=== PATIENT | male | born 1960 | race Caucasian/White ===

== ENCOUNTER → 2016-11-05 | Outpatient (CLI) | payer MEDICARE, MEDICAID ==
--- NOTE | 2016-11-05 13:06 | CR ---
EXAMINATION: Single contrast barium enema HISTORY: Unspecified intestinal obstruction COMPARISON: CT dated 12/19/2009 TECHNIQUE: A standard barium enema was performed. FINDINGS: The rectum is prominent in size and appears featureless. The remaining colon appears larry lly distensible however the cecum was unable to be optimally distended. No filling defect or strictu re identified. IMPRESSION: 1. Grossly unremarkable single contrast barium enema.
== END ==
LOC: MW.DI 08:37
PROVIDERS: ATTEND Student in an Organized Health Care Education/Training Program
DX: K56.60 Unspecified intestinal obstruction (principal)
CPT/HCPCS: 74270; 74270-26

== ENCOUNTER 2018-10-08 10:02 | Emergency (ER) | payer MEDICARE, MEDICAID ==
--- NOTE | 2018-10-08 10:29 | EDM.PDOC ---
ED HPI GENERAL MEDICAL PROBLEM - General Chief Complaint: Lower Extremity Injury/Pain Stated Complaint: LT LEG WARM AND RED Time Seen by Provider: 10/08/18 10:24 Source of Information: Reports: Patient, Provider History Limitations: Reports: No Limitations - History of Present Illness INITIAL COMMENTS - FREE TEXT/NARRATIVE: HISTORY AND PHYSICAL: History of present illness: Patient is a 58-year-old male here with complaint of left lower extremity redness and swelling. Patient is here with his caregiver from the [facility]. Patient has history of chronic lower extremity edema, diabetes, and hypertension. He was seen 6 weeks ago for similar complaint, transferred to due to lack of beds here and treated for cellulitis as well as a DVT. He is currently on Xarelto. He and caregiver state he has had increased pain, redness, and swelling x 4 days. He denies fevers, chills, nausea, vomiting , chest pain, shortness of breath. Patient does have an appointment with his PCP on 10/15/18. Review of systems: As per history of present illness and below otherwise all systems reviewed and negative. Past medical history: As per history of present illness and as reviewed below otherwise noncontributory. Surgical history: As per history of present illness and as reviewed below otherwise noncontributory. Social history: No reported history of drug or alcohol abuse. Family history: As per history of present illness and as reviewed below otherwise noncontributory. Physical exam: General: Patient sitting comfortably in no acute distress and nontoxic appearing HEENT: Atraumatic, normocephalic, pupils reactive, negative for conjunctival pallor or scleral icterus, mucous membranes moist, throat clear, neck supple, nontender, trachea midline. No meningeal signs. Lungs: Clear to auscultation, breath sounds equal bilaterally, chest nontender. Heart: S1S2, regular, negative for clicks, rubs, or overt murmur. Abdomen: Soft, nondistended, nontender. Negative for masses or hepatosplenomegaly. Negative for costovertebral tenderness. Pelvis: Stable nontender. Genitourinary: Deferred. Rectal: Hemoccult negative Extremities: Significant lower extremity pitting edema bilaterally. Dry skin noted but no cracks or open wounds. There is diffuse erythema of the left lower extremity that is warm and tender to touch. Atraumatic, negative for cords or calf pain. Neurovascular unremarkable. Neuro: Awake, alert, oriented. Cranial nerves II through XII unremarkable. Cerebellum unremarkable. Motor and sensory unremarkable throughout. Exam nonfocal. Notes: Patient's H&H is lower than previous visit, he denies any abdominal symptoms but was recently started on Xarelto so a hemoccult was checked which is negative. Diagnostics: CBC, CMP, x-ray tib/fib, blood culture x 2 Therapeutics: 1g Rocephin IM Prescriptions: Clindamycin Impression: Cellulitis Plan: 1. Elevate leg and take antibiotic as instructed 2. Follow up with primary care provider 3. Return to ED as needed as discussed Definitive disposition and diagnosis as appropriate pending reevaluation and review of above. Left Lower Leg Pain Score (Numeric/FACES): 10 - Related Data Allergies Allergy/AdvReac Type Severity Reaction Status Date / Time bee pollen [Bee Pollen] Allergy Swelling Verified 10/08/18 10:22 iodine Allergy Swelling Verified 10/08/18 10:22 Sulfa (Sulfonamide Allergy Swelling Verified 10/08/18 10:22 Antibiotics) Home Meds: Home Meds Allopurinol [Zyloprim] 100 mg PO DAILY 10/08/18 [History] Aspirin [Adult Aspirin] 81 mg PO DAILY 10/08/18 [History] Carboxymethylcellulose Sodium [Refresh Plus 0.5%] 1 drop EYEBOTH DAILY 10/08/18 [History] Clindamycin HCl 300 mg PO QID 7 Days #28 capsule 10/08/18 [Rx] EPINEPHrine [Epipen] 0.3 mg IM ASDIRECTED 10/08/18 [History] Furosemide 40 mg PO DAILY 10/08/18 [History] Liraglutide [Victoza] 1.8 mg SQ DAILY 10/08/18 [History] Lisinopril 20 mg PO DAILY 10/08/18 [History] Metoprolol Succinate 100 mg PO DAILY 10/08/18 [History] Olopatadine [Patanol 0.1% Ophth Soln] 0.2 dose EYEBOTH DAILY 10/08/18 [History] Potassium Chloride 20 meq PO TID 10/08/18 [History] Rivaroxaban [Xarelto] 20 mg PO DAILY 10/08/18 [History] Sertraline [Zoloft] 100 mg PO DAILY 10/08/18 [History] atorvaSTATin Calcium [Lipitor] 40 mg PO DAILY 10/08/18 [History] carBAMazepine [Tegretol] 400 mg PO BID 10/08/18 [History] metFORMIN [Glucophage XR] 1,500 mg PO DAILY 10/08/18 [History] risperiDONE 5 mg PO DAILY 10/08/18 [History] traZODone HCl [Trazodone HCl] 150 mg PO DAILY 10/08/18 [History] Past Medical History HEENT History: Reports: Other (See Below) Other HEENT History: myopia Cardiovascular History: Reports: Hypertension Gastrointestinal History: Reports: Chronic Constipation, Other (See Below) Other Gastrointestinal History: possible peptic ulcer Genitourinary History: Reports: UTI, Recurrent Musculoskeletal History: Reports: Gout Neurological History: Reports: Seizure Psychiatric History: Reports: Other (See Below) Other Psychiatric History: disruptive behavior disorder NOS Endocrine/Metabolic History: Reports: Diabetes, Type II, Obesity/BMI 30+ Dermatologic History: Reports: Other (See Below) Other Dermatologic History: tinea pedis, hyperhydrosis, recurring fungus to feet and nails - Infectious Disease History Infectious Disease History: Reports: None - Past Surgical History Male Surgical History: Reports: Other (See Below) Social & Family History - Family History Family Medical History: Noncontributory Review of Systems - Review of Systems Review Of Systems: ROS reveals no pertinent complaints other than HPI. ED EXAM, GENERAL - Physical Exam Exam: See Below (see dictation) Course - Vital Signs Last Recorded V/S: Last Vital Signs Temp 97.4 F 10/08/18 10:19 Pulse 80 10/08/18 10:19 Resp 18 10/08/18 10:19 BP 164/88 H 10/08/18 10:19 Pulse Ox 96 10/08/18 10:19 - Orders/Labs/Meds Orders: Active Orders 24 hr Category Date Time Status CULTURE BLOOD [BC] Stat Lab 10/08/18 10:59 Received CULTURE BLOOD [BC] Stat Lab 10/08/18 11:10 Received Blood Culture x2 Reflex Set [OM.PC] Stat Oth 10/08/18 10:49 Ordered Labs: Laboratory Tests 10/08/18 10/08/18 Range/Units 10:45 10:45 WBC 4.53 (4.0-11.0) K/uL RBC 3.54 L (4.50-5.90) M/uL Hgb 10.5 L (13.0-17.0) g/dL Hct 32.1 L (38.0-50.0) % MCV 90.7 (80.0-98.0) fL MCH 29.7 (27.0-32.0) pg MCHC 32.7 (31.0-37.0) g/dL RDW Std Deviation 52.4 (28.0-62.0) fl RDW Coeff of Giovanni 16 H (11.0-15.0) % Plt Count 160 (150-400) K/uL MPV 9.40 (7.40-12.00) fL Neut % (Auto) 65.6 (48.0-80.0) % Lymph % (Auto) 23.2 (16.0-40.0) % Hutchinson % (Auto) 9.9 (0.0-15.0) % Eos % (Auto) 1.1 (0.0-7.0) % Baso % (Auto) 0.2 (0.0-1.5) % Neut # (Auto) 3.0 (1.4-5.7) K/uL Lymph # (Auto) 1.1 (0.6-2.4) K/uL Hutchinson # (Auto) 0.5 (0.0-0.8) K/uL Eos # (Auto) 0.1 (0.0-0.7) K/uL Baso # (Auto) 0.0 (0.0-0.1) K/uL Nucleated RBC % 0.0 /100WBC Nucleated RBCs # 0 K/uL Sodium 138 (136-148) mmol/L Potassium 4.1 (3.5-5.1) mmol/L Chloride 101 (98-107) mmol/L Carbon Dioxide 28.4 (21.0-32.0) mmol/L BUN 16 (7.0-18.0) mg/dL Creatinine 0.9 (0.8-1.3) mg/dL Est Cr Clr Drug Dosing 91.65 mL/min Estimated GFR (MDRD) > 60.0 ml/min Glucose 111 H (74-106) mg/dL Calcium 9.1 (8.5-10.1) mg/dL Total Bilirubin 0.2 (0.2-1.0) mg/dL AST 21 (15-37) IU/L ALT 26 (14-63) IU/L Alkaline Phosphatase 95 (46-116) U/L Total Protein 7.9 (6.4-8.2) g/dL Albumin 3.1 L (3.4-5.0) g/dL Globulin 4.8 H (2.6-4.0) g/dL Albumin/Globulin Ratio 0.7 L (0.9-1.6) Meds: Medications Discontinued Medications Generic Name Dose Route Start Last Admin Trade Name Cherie PRN Reason Stop Dose Admin Ceftriaxone Sodium 1 gm 10/08/18 11:22 10/08/18 11:45 Rocephin IM 10/08/18 11:23 1 gm ONETIME ONE Administration Lidocaine HCl 2.1 ml 10/08/18 11:28 10/08/18 11:45 Xylocaine 1% INJECT 10/08/18 11:29 Not Given ONETIME ONE Lidocaine HCl 5 ml 10/08/18 11:30 10/08/18 11:45 Xylocaine-Mpf 1% INJECT 10/08/18 11:31 5 ml ONETIME ONE Administration Departure - Departure Time of Disposition: 11:55 Disposition: Home, Self-Care 01 Condition: Good Clinical Impression: Cellulitis - Discharge Information Prescriptions: Clindamycin HCl 300 mg PO QID 7 Days #28 capsule Referrals: Mati Riggs MD [Primary Care Provider] - Forms: ED Department Discharge Additional Instructions: The following information is given to patients seen in the emergency department who are being discharged to home. This information is to outline your options for follow-up care. We provide all patients seen in our emergency department with a follow-up referral. The need for follow-up, as well as the timing and circumstances, are variable depending upon the specifics of your emergency department visit. If you don't have a primary care physician on staff, we will provide you with a referral. We always advise you to contact your personal physician following an emergency department visit to inform them of the circumstance of the visit and for follow-up with them and/or the need for any referrals to a consulting specialist. The emergency department will also refer you to a specialist when appropriate. This referral assures that you have the opportunity for follow-up care with a specialist. All of these measure are taken in an effort to provide you with optimal care, which includes your follow-up. Under all circumstances we always encourage you to contact your private physician who remains a resource for coordinating your care. When calling for follow-up care, please make the office aware that this follow-up is from your recent emergency room visit. If for any reason you are refused follow-up, please contact the [facility] Emergency Department at and asked to speak to the emergency department charge nurse. [address] [address] 1. Elevate leg and take antibiotic as instructed 2. Follow up with primary care provider 3. Return to ED as needed as discussed - My Orders Last 24 Hours: My Active Orders 10/08/18 10:49 Blood Culture x2 Reflex Set [OM.PC] Stat 10/08/18 10:59 CULTURE BLOOD [BC] Stat 10/08/18 11:10 CULTURE BLOOD [BC] Stat - Assessment/Plan Last 24 Hours: My Active Orders 10/08/18 10:49 Blood Culture x2 Reflex Set [OM.PC] Stat 10/08/18 10:59 CULTURE BLOOD [BC] Stat 10/08/18 11:10 CULTURE BLOOD [BC] Stat
--- NOTE | 2018-10-08 11:11 | CR ---
EXAMINATION: Left tibia and fibula HISTORY: Pain COMPARISON: 08/22/2018 TECHNIQUE: 2 views FINDINGS/IMPRESSION: There is no acute osseous abnormality, dislocation, or fracture. Moderate osteoarthritic changes noted within the left knee and mild degenerative changes noted within the hindfoot. Diffuse generalized soft tissue swelling noted within the visualized subcutaneous tissues with multiple varices.
[2018-10-08] MEDS ORDERED: cefTRIAXone 1 GM Vial IM ONE (11:22)
[2018-10-08] MEDS ORDERED: Lidocaine 1% 20 ML MDV INJECT ONE (11:28)
[2018-10-08 11:40] LABS: CHLORIDE,CL 101 mmol/L (98-107); SODIUM,NA 138 mmol/L (136-148)
== END 2018-10-08 13:04 | disposition home or self-care (01) ==
LOC: MW.ED 10:02
DX: L03.116 Cellulitis of left lower limb (principal); I10 Essential (primary) hypertension; E11.9 Type 2 diabetes mellitus without complications; Z91.030 Bee allergy status; Z91.09 Other allergy status, other than to drugs and biological substances; Z88.2 Allergy status to sulfonamides; Z79.82 Long term (current) use of aspirin; Z79.84 Long term (current) use of oral hypoglycemic drugs; Z79.899 Other long term (current) drug therapy
CPT/HCPCS: 36415; 73590; 80053; 85025; 87040; 96372; 99283; J0696; J2001

== ENCOUNTER 2018-10-12 20:40 | Emergency (ER) | payer MEDICARE, MEDICAID ==
[2018-10-12] MEDS ORDERED: Acetaminophen/HYDROcodone 325-7.5 MG Tab PO STA (21:09)
--- NOTE | 2018-10-12 21:30 | EDM.PDOC ---
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 He has had recent medical history including a left lower extremity DVT currently on several to his last dose was 7 PM tonight He has also been discharged from [facility] for an abscess involving his left calf area and was seen recently with full lab she is on file and placed on clindamycin which he is currently on Taken as directed 4 times daily He also has recent imaging of the tib-fib which includes ankle views and knee views there are chronic degeneration changes but nothing acute visualized on the x-ray He is not taking any pain medication, he has pain with ambulation but not while at rest Lower extremity he has chronic venous stasis changes however no warmth color is pink on posterior calf there is no appreciated fluctuance no drainage for culture Entire limb is neurovascularly intact he was able to ambulate into the emergency room without difficulty No fever nausea vomiting chills sweats no chest pain shortness breath headache dizziness palpitation no bowel or urine symptoms Review of systems: As per history of present illness and below otherwise all systems reviewed and negative. Past medical history: As per history of present illness and as reviewed below otherwise noncontributory. Surgical history: As per history of present illness and as reviewed below otherwise noncontributory. Social history: No reported history of drug or alcohol abuse. Family history: As per history of present illness and as reviewed below otherwise noncontributory. Physical exam: HEENT: Atraumatic, normocephalic, pupils reactive, negative for conjunctival pallor or scleral icterus, mucous membranes moist, throat clear, neck supple, nontender, trachea midline. Lungs: Clear to auscultation, breath sounds equal bilaterally, chest nontender. Heart: S1S2, regular, negative for clicks, rubs, or JVD. Abdomen: Soft, nondistended, nontender. Negative for masses or hepatosplenomegaly. Negative for costovertebral tenderness. Pelvis: Stable nontender. Genitourinary: Deferred. Rectal: Deferred. Extremities: Atraumatic, negative for cords or calf pain. Neurovascular unremarkable. Left lower extremity as per history of present illness Neuro: Awake, alert, oriented. Cranial nerves II through XII unremarkable. Cerebellum unremarkable. Motor and sensory unremarkable throughout. Exam nonfocal. Diagnostics: [Tib-fib plain film on file which includes ankle and knee views Recent ultrasound with left lower extremity thrombus on 0 though Recent lab on file including blood cultures ] Therapeutics: [] Plains 5 per 325 one to 2 tabs by mouth every 6 when necessary #30 no refill Continue current medication as directed Follow-up with primary care in one week sooner as needed Impression: [ left lower extremity cellulitis improved/resolved Abscess resolved History of DVT left lower extremity Chronic degenerative changes of knee and ankle on the x-ray Painful left lower extremity secondary to above ] Definitive disposition and diagnosis as appropriate pending reevaluation and review of above. left lower leg Pain Score (Numeric/FACES): 10 - Related Data Allergies Allergy/AdvReac Type Severity Reaction Status Date / Time bee pollen [Bee Pollen] Allergy Swelling Verified 10/12/18 20:55 iodine Allergy Swelling Verified 10/12/18 20:55 Sulfa (Sulfonamide Allergy Swelling Verified 10/12/18 20:55 Antibiotics) Home Meds: Home Meds Allopurinol [Zyloprim] 100 mg PO DAILY 10/08/18 [History] Aspirin [Adult Aspirin] 81 mg PO DAILY 10/08/18 [History] Carboxymethylcellulose Sodium [Refresh Plus 0.5%] 1 drop EYEBOTH DAILY 10/08/18 [History] Clindamycin HCl 300 mg PO QID 7 Days #28 capsule 10/08/18 [Rx] EPINEPHrine [Epipen] 0.3 mg IM ASDIRECTED 10/08/18 [History] Furosemide 40 mg PO DAILY 10/08/18 [History] Liraglutide [Victoza] 1.8 mg SQ DAILY 10/08/18 [History] Lisinopril 20 mg PO DAILY 10/08/18 [History] Metoprolol Succinate 100 mg PO DAILY 10/08/18 [History] Olopatadine [Patanol 0.1% Ophth Soln] 0.2 dose EYEBOTH DAILY 10/08/18 [History] Potassium Chloride 20 meq PO TID 10/08/18 [History] Rivaroxaban [Xarelto] 20 mg PO DAILY 10/08/18 [History] Sertraline [Zoloft] 100 mg PO DAILY 10/08/18 [History] atorvaSTATin Calcium [Lipitor] 40 mg PO DAILY 10/08/18 [History] carBAMazepine [Tegretol] 400 mg PO BID 10/08/18 [History] metFORMIN [Glucophage XR] 1,500 mg PO DAILY 10/08/18 [History] risperiDONE 5 mg PO DAILY 10/08/18 [History] traZODone HCl [Trazodone HCl] 150 mg PO DAILY 10/08/18 [History] Clindamycin HCl 300 mg PO Q6HR 10/12/18 [History] Past Medical History HEENT History: Reports: Other (See Below) Other HEENT History: myopia Cardiovascular History: Reports: Hypertension Respiratory History: Reports: None Gastrointestinal History: Reports: Chronic Constipation, Other (See Below) Other Gastrointestinal History: possible peptic ulcer Genitourinary History: Reports: UTI, Recurrent Musculoskeletal History: Reports: Gout Neurological History: Reports: Seizure Psychiatric History: Reports: Other (See Below) Other Psychiatric History: disruptive behavior disorder NOS Endocrine/Metabolic History: Reports: Diabetes, Type II, Obesity/BMI 30+ Hematologic History: Reports: None Immunologic History: Reports: None Oncologic (Cancer) History: Reports: None Dermatologic History: Reports: Other (See Below) Other Dermatologic History: tinea pedis, hyperhydrosis, recurring fungus to feet and nails - Infectious Disease History Infectious Disease History: Reports: Measles - Past Surgical History Male Surgical History: Reports: Other (See Below) Social & Family History - Family History Family Medical History: Noncontributory - Tobacco Use Smoking Status *Q: Never Smoker - Caffeine Use Caffeine Use: Reports: Soda - Recreational Drug Use Recreational Drug Use: No Review of Systems - Review of Systems Review Of Systems: See Below ED EXAM, GENERAL - Physical Exam Exam: See Below Course - Vital Signs Last Recorded V/S: Last Vital Signs Temp 98.5 F 10/12/18 20:56 Pulse 77 10/12/18 20:56 Resp 20 10/12/18 20:56 BP 157/90 H 10/12/18 20:56 Pulse Ox 96 10/12/18 20:56 - Orders/Labs/Meds Meds: Medications Discontinued Medications Generic Name Dose Route Start Last Admin Trade Name Freq PRN Reason Stop Dose Admin Hydrocodone Bitart/Acetaminophen 1 tab 10/12/18 21:09 10/12/18 21:17 Plains 325-7.5 Mg PO 10/12/18 21:10 1 tab NOW STA Administration Departure - Departure Time of Disposition: 21:30 Disposition: Home, Self-Care 01 Condition: Good Clinical Impression: Lower extremity pain, Cellulitis, History of DVT (deep vein thrombosis), Degenerative joint disease involving multiple joints - Discharge Information Referrals: Mati Riggs MD [Primary Care Provider] - Forms: ED Department Discharge Additional Instructions: Continue medications as prescribed Pain medication as prescribed Follow-up with primary care in one week sooner as needed [address] [address] The following information is given to patients seen in the emergency department who are being discharged to home. This information is to outline your options for follow-up care. We provide all patients seen in our emergency department with a follow-up referral. The need for follow-up, as well as the timing and circumstances, are variable depending upon the specifics of your emergency department visit. If you don't have a primary care physician on staff, we will provide you with a referral. We always advise you to contact your personal physician following an emergency department visit to inform them of the circumstance of the visit and for follow-up with them and/or the need for any referrals to a consulting specialist. The emergency department will also refer you to a specialist when appropriate. This referral assures that you have the opportunity for follow-up care with a specialist. All of these measure are taken in an effort to provide you with optimal care, which includes your follow-up. Under all circumstances we always encourage you to contact your private physician who remains a resource for coordinating your care. When calling for follow-up care, please make the office aware that this follow-up is from your recent emergency room visit. If for any reason you are refused follow-up, please contact the [facility] emergency department at and asked to speak to the emergency department charge nurse.
== END 2018-10-12 21:53 | disposition home or self-care (01) ==
LOC: MW.ED 20:40
DX: L03.116 Cellulitis of left lower limb (principal); M15.9 Polyosteoarthritis, unspecified; I10 Essential (primary) hypertension; E11.9 Type 2 diabetes mellitus without complications; E66.9 Obesity, unspecified; Z86.718 Personal history of other venous thrombosis and embolism; Z88.2 Allergy status to sulfonamides; Z91.030 Bee allergy status; Z79.82 Long term (current) use of aspirin; Z79.899 Other long term (current) drug therapy; Z79.84 Long term (current) use of oral hypoglycemic drugs
CPT/HCPCS: 99283; A9270

== ENCOUNTER 2019-05-31 14:47 | Emergency (ER) | payer MEDICARE, MEDICAID ==
--- NOTE | 2019-05-31 15:28 | EDM.PDOC ---
ED HPI GENERAL MEDICAL PROBLEM - General Chief Complaint: Back Pain or Injury Stated Complaint: RIGHT LOWER PAIN Time Seen by Provider: 05/31/19 15:23 Source of Information: Reports: Patient History Limitations: Reports: No Limitations - History of Present Illness INITIAL COMMENTS - FREE TEXT/NARRATIVE: HISTORY AND PHYSICAL: History of present illness: Patient is a 58-year-old male presenting to the for complaints of low back pain. The patient's criminal justice social worker did accompany him to the emergency room. Patient denies recent trauma. Patient states that he does work at [employer] and I was informed by the criminal justice social worker that he has been lifting heavy objects at work and he may have injured his back at work. He cannot point to a place and time he sustained an injury. Patient states it feels like he is having most of the pain in his muscles. When asked to rate his pain on a scale of 0-10, he gave me a frowning face, which would rate at an 8/10 on the Ramirez-Huerta pain rating scale. To inform me that he did take an Hydrocodone (from an old prescription) at approximately 2 PM today, however he is still having back pain. Patient states he's been having some epigastric pain for approximately the last 2 weeks. Patient denies any fever, chills, headache, change in vision, syncope or near syncope. Denies any chest pain, shortness of breath or cough. Denies any nausea, vomiting, diarrhea, constipation or dysuria. Has not noted any blood in urine or stool. Patient has been eating and drinking appropriately. Review of systems: As per history of present illness and below otherwise all systems reviewed and negative. Past medical history: As per history of present illness and as reviewed below otherwise noncontributory. Surgical history: As per history of present illness and as reviewed below otherwise noncontributory. Social history: See social history for further information Family history: As per history of present illness and as reviewed below otherwise noncontributory. Physical exam: General: Well developed and well nourished 58-year-old male. Alert and oriented. Nontoxic appearing and in no acute distress. HEENT: Atraumatic, normocephalic, pupils equal and reactive bilaterally, negative for conjunctival pallor or scleral icterus, mucous membranes moist, trachea midline. No drooling or trismus noted. No meningeal signs. No hot potato voice noted. Lungs: Clear to auscultation, breath sounds equal bilaterally, chest nontender. Heart: S1S2, regular rate and rhythm without overt murmur Abdomen: Soft, nondistended, nontender. Negative for masses or hepatosplenomegaly. Negative for costovertebral tenderness. Pelvis: Stable nontender. C-spine/Back: No pinpoint vertebral tenderness upon palpation. Paraspinous muscular tenderness bilaterally of the lumbosacral spine. No crepitus, step- offs or obvious deformities. Patient is ambulatory into the emergency room without difficulty or deficit. Able to rock back on heels and walk on toes. Denies any urinary or fecal incontinence. Denies any numbness, tingling or saddle paresthesia. Skin: Intact, warm, dry. No lesions or rashes noted. Extremities: Atraumatic, moves all extremities per self without difficulty or deficits, negative for cords or calf pain. Negative foot drop. Neurovascular unremarkable. Neuro: Awake, alert, oriented. Cranial nerves II through XII unremarkable. Cerebellum unremarkable. Motor and sensory unremarkable throughout. Exam nonfocal. Notes: Urinalysis was done as he did has some vague low back pain and some epigastric pain. Urine is negative. X-ray shows mild diffuse degenerative changes. We'll give him some diclofenac and Flexeril Supportive care measures were reviewed and discussed. Voices understanding and is agreeable to plan of care. Denies any further questions or concerns at this time. Diagnostics: UA with reflux, lumbosacral sacral spine x-ray Therapeutics: None Prescription: Flexeril Diclofenac Impression: Lumbago Plan: 1. When resting please lay on a flat firm surface. Limit your immobility to prevent muscle stiffness. Get up to ambulate/move around/gentle stretching multiple times throughout the day. May alternate heat and ice to the painful areas 2. Tylenol as needed for back pain. Otherwise take the prescribed Flexeril and diclofenac as directed. Diclofenac is an anti-inflammatory so do not take any additional NSAIDs with this medication, such as ibuprofen or Aleve. Flexeril as a muscle relaxant, this medication may cause drowsiness a do not take it will driving her needing to be functioning outside of the house. 3. Please follow-up with your primary care provider as we discussed. Return to the ED as needed and as discussed. Definitive disposition and diagnosis as appropriate pending reevaluation and review of above. low back Pain Score (Numeric/FACES): 10 - Related Data Allergies Allergy/AdvReac Type Severity Reaction Status Date / Time bee pollen [Bee Pollen] Allergy Swelling Verified 05/31/19 15:28 iodine Allergy Swelling Verified 05/31/19 15:28 Sulfa (Sulfonamide Allergy Swelling Verified 05/31/19 15:28 Antibiotics) Home Meds: Home Meds Allopurinol [Zyloprim] 100 mg PO DAILY 10/08/18 [History] Aspirin [Adult Aspirin] 81 mg PO DAILY 10/08/18 [History] Carboxymethylcellulose Sodium [Refresh Plus 0.5%] 1 drop EYEBOTH DAILY 10/08/18 [History] EPINEPHrine [Epipen] 0.3 mg IM ASDIRECTED 10/08/18 [History] Furosemide 40 mg PO DAILY 10/08/18 [History] Liraglutide [Victoza] 1.8 mg SQ DAILY 10/08/18 [History] Lisinopril 20 mg PO BID 10/08/18 [History] Metoprolol Succinate 100 mg PO DAILY 10/08/18 [History] Olopatadine [Patanol 0.1% Ophth Soln] 0.2 dose EYEBOTH DAILY 10/08/18 [History] Potassium Chloride 20 meq PO TID 10/08/18 [History] Rivaroxaban [Xarelto] 20 mg PO DAILY 10/08/18 [History] Sertraline [Zoloft] 100 mg PO DAILY 10/08/18 [History] atorvaSTATin Calcium [Lipitor] 40 mg PO BEDTIME 10/08/18 [History] carBAMazepine [Tegretol] 400 mg PO BID 10/08/18 [History] metFORMIN [Glucophage XR] 500 mg PO TID 10/08/18 [History] risperiDONE 5 mg PO DAILY 10/08/18 [History] traZODone HCl [Trazodone HCl] 150 mg PO BEDTIME 10/08/18 [History] Past Medical History HEENT History: Reports: Other (See Below) Other HEENT History: myopia Cardiovascular History: Reports: Blood Clots/VTE/DVT, Hypertension Respiratory History: Reports: None Gastrointestinal History: Reports: Chronic Constipation, Other (See Below) Other Gastrointestinal History: possible peptic ulcer Genitourinary History: Reports: UTI, Recurrent Musculoskeletal History: Reports: Gout Neurological History: Reports: Seizure Psychiatric History: Reports: Other (See Below) Other Psychiatric History: disruptive behavior disorder NOS Endocrine/Metabolic History: Reports: Diabetes, Type II, Obesity/BMI 30+ Hematologic History: Reports: None Immunologic History: Reports: None Oncologic (Cancer) History: Reports: None Dermatologic History: Reports: Cellulitis, Other (See Below) Other Dermatologic History: tinea pedis, hyperhydrosis, recurring fungus to feet and nails - Infectious Disease History Infectious Disease History: Reports: Measles - Past Surgical History Male Surgical History: Reports: Other (See Below) Social & Family History - Family History Family Medical History: Noncontributory - Caffeine Use Caffeine Use: Reports: Soda ED ROS GENERAL - Review of Systems Review Of Systems: ROS reveals no pertinent complaints other than HPI. ED EXAM,LOWER BACK PAIN/INJURY - Physical Exam Exam: See Below (See dictation) Course - Vital Signs Last Recorded V/S: Last Vital Signs Temp 98 F 05/31/19 15:20 Pulse 89 05/31/19 15:20 Resp 18 05/31/19 15:20 BP 166/100 H 05/31/19 15:20 Pulse Ox 95 05/31/19 15:20 - Orders/Labs/Meds Labs: Laboratory Tests 05/31/19 Range/Units 16:10 Urine Color YELLOW Urine Appearance CLEAR Urine pH 5.5 (5.0-8.0) Ur Specific Sparks 1.015 (1.001-1.035) Urine Protein NEGATIVE (NEGATIVE) mg/dL Urine Glucose (UA) NEGATIVE (NEGATIVE) mg/dL Urine Ketones NEGATIVE (NEGATIVE) mg/dL Urine Occult Blood NEGATIVE (NEGATIVE) Urine Nitrite NEGATIVE (NEGATIVE) Urine Bilirubin NEGATIVE (NEGATIVE) Urine Urobilinogen 0.2 (<2.0) EU/dL Ur Leukocyte Esterase NEGATIVE (NEGATIVE) Departure - Departure Time of Disposition: 16:44 Disposition: Home, Self-Care 01 Clinical Impression: Lumbago Qualifiers: Chronicity: unspecified Back pain laterality: bilateral Sciatica presence: without sciatica Qualified Code(s): M54.5 - Low back pain - Discharge Information Referrals: Mati Riggs MD [Primary Care Provider] - Forms: ED Department Discharge Additional Instructions: The following information is given to patients seen in the emergency department who are being discharged to home. This information is to outline your options for follow-up care. We provide all patients seen in our emergency department with a follow-up referral. The need for follow-up, as well as the timing and circumstances, are variable depending upon the specifics of your emergency department visit. If you don't have a primary care physician on staff, we will provide you with a referral. We always advise you to contact your personal physician following an emergency department visit to inform them of the circumstance of the visit and for follow-up with them and/or the need for any referrals to a consulting specialist. The emergency department will also refer you to a specialist when appropriate. This referral assures that you have the opportunity for follow-up care with a specialist. All of these measure are taken in an effort to provide you with optimal care, which includes your follow-up. Under all circumstances we always encourage you to contact your private physician who remains a resource for coordinating your care. When calling for follow-up care, please make the office aware that this follow-up is from your recent emergency room visit. If for any reason you are refused follow-up, please contact the [facility] Emergency Department at and asked to speak to the emergency department charge nurse. [facility] [address] [place] [address] [place] [address] 1. When resting please lay on a flat firm surface. Limit your immobility to prevent muscle stiffness. Get up to ambulate/move around/gentle stretching multiple times throughout the day. May alternate heat and ice to the painful areas 2. Tylenol as needed for back pain. Otherwise take the prescribed Flexeril and diclofenac as directed. Diclofenac is an anti-inflammatory so do not take any additional NSAIDs with this medication, such as ibuprofen or Aleve. Flexeril as a muscle relaxant, this medication may cause drowsiness a do not take it will driving her needing to be functioning outside of the house. 3. Please follow-up with your primary care provider as we discussed. Return to the ED as needed and as discussed.
--- NOTE | 2019-05-31 16:25 | CR ---
Lumbar spine: AP, lateral and coned-down lateral view centered to the lumbosacral junction were obtained. Comparison: No prior lumbar spine imaging. Scattered disc space narrowing throughout the lower thoracic and lumbar spine is noted. Scattered endplate osteophytes are seen. Minimal retrolisthesis is noted at L2-L3 and minimally at L3-L4. Slight scoliosis is noted. Pedicles are intact. Sacroiliac joints are grossly unremarkable. Mild anterior spondylolisthesis of L5-S1 compatible with degenerative apophyseal change. Impression: Mild diffuse degenerative change as described above. Diagnostic code #2 MTDD
== END 2019-05-31 17:02 | disposition home or self-care (01) ==
LOC: MW.ED 14:47
DX: M54.5 Low back pain (principal); I10 Essential (primary) hypertension; E11.9 Type 2 diabetes mellitus without complications; E66.9 Obesity, unspecified; Z79.84 Long term (current) use of oral hypoglycemic drugs; Z79.899 Other long term (current) drug therapy; Z86.718 Personal history of other venous thrombosis and embolism; Z88.2 Allergy status to sulfonamides; Z88.8 Allergy status to other drugs, medicaments and biological substances; Z91.048 Other nonmedicinal substance allergy status
CPT/HCPCS: 72100; 72100-26; 81003; 99283-25

== ENCOUNTER 2019-06-09 16:57 | Emergency (ER) | payer MEDICARE, MEDICAID ==
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
[2019-06-09] MEDS ORDERED: Acetaminophen 500 MG Tab PO ONE (18:37)
== END 2019-06-09 19:00 | disposition home or self-care (01) ==
LOC: MW.ED 16:57
DX: S09.90XA Unspecified injury of head, initial encounter (principal); S16.1XXA Strain of muscle, fascia and tendon at neck level, initial encounter; S29.012A Strain of muscle and tendon of back wall of thorax, initial encounter; S39.012A Strain of muscle, fascia and tendon of lower back, initial encounter; I10 Essential (primary) hypertension; E11.9 Type 2 diabetes mellitus without complications; Z91.030 Bee allergy status; Z91.048 Other nonmedicinal substance allergy status; Z88.2 Allergy status to sulfonamides; Z79.82 Long term (current) use of aspirin; Z79.899 Other long term (current) drug therapy; Z79.84 Long term (current) use of oral hypoglycemic drugs; Z86.718 Personal history of other venous thrombosis and embolism; V49.50XA Passenger injured in collision with unspecified motor vehicles in traffic accident, initial encounter
CPT/HCPCS: 70450; 71045; 72070; 72100; 72125; 99284; A9270

== ENCOUNTER 2019-08-08 10:11 | Emergency (ER) | payer MEDICARE, MEDICAID ==
--- NOTE | 2019-08-08 10:20 | EDM.PDOC ---
ED HPI GENERAL MEDICAL PROBLEM - General Chief Complaint: ENT Problem Stated Complaint: SORE THROAT Time Seen by Provider: 08/08/19 10:20 Source of Information: Reports: Patient History Limitations: Reports: No Limitations - History of Present Illness INITIAL COMMENTS - FREE TEXT/NARRATIVE: HISTORY AND PHYSICAL: History of present illness: Patient is a 59-year-old male presents to the ED with complaint of sore throat. He states he has had a cold and sore throat for the past 2 weeks. He reports pain with swallowing but denies difficulty breathing or trismus. He has had a slight cough. Denies fevers, chills, chest pain, shortness of breath, nausea, vomiting, abdominal pain. Patient notes having a mass to the right side of the neck which is tender to touch. Review of systems: As per history of present illness and below otherwise all systems reviewed and negative. Past medical history: As per history of present illness and as reviewed below otherwise noncontributory. Surgical history: As per history of present illness and as reviewed below otherwise noncontributory. Social history: No reported history of drug or alcohol abuse. Family history: As per history of present illness and as reviewed below otherwise noncontributory. Physical exam: General: Patient sitting comfortably in no acute distress and nontoxic appearing HEENT: Tonsils are 1+ and erythematous without exudate. There is a 2x2cm firm mobile mass felt to the right submandibular area, tender to palpation. No overlying erythema or warmth. No purulence noted to the lyla duct. Atraumatic , normocephalic, pupils reactive, negative for conjunctival pallor or scleral icterus, mucous membranes moist, throat clear, neck supple, nontender, trachea midline. No meningeal signs. Lungs: Clear to auscultation, breath sounds equal bilaterally, chest nontender. Heart: S1S2, regular, negative for clicks, rubs, or overt murmur. Abdomen: Soft, nondistended, nontender. Negative for masses or hepatosplenomegaly. Negative for costovertebral tenderness. No rigidity, rebound , guarding. Pelvis: Stable nontender. Genitourinary: Deferred. Rectal: Deferred. Extremities: Atraumatic, negative for cords or calf pain. Neurovascular unremarkable. Neuro: Awake, alert, oriented. Cranial nerves II through XII unremarkable. Cerebellum unremarkable. Motor and sensory unremarkable throughout. Exam nonfocal. Notes: Diagnostics: rapid strep, CT soft tissue neck, CBC, BMP Therapeutics: 1g Rocephin IV Prescriptions: Keflex Impression: Acute sialoadenitis Definitive disposition and diagnosis as appropriate pending reevaluation and review of above. right throat Pain Score (Numeric/FACES): 10 - Related Data Allergies Allergy/AdvReac Type Severity Reaction Status Date / Time bee pollen [Bee Pollen] Allergy Swelling Verified 08/08/19 10:21 iodine Allergy Swelling Verified 08/08/19 10:21 Sulfa (Sulfonamide Allergy Swelling Verified 08/08/19 10:21 Antibiotics) Home Meds: Home Meds Aspirin [Adult Aspirin] 81 mg PO DAILY 10/08/18 [History] Carboxymethylcellulose Sodium [Refresh Plus 0.5%] 1 drop EYEBOTH DAILY 10/08/18 [History] EPINEPHrine [Epipen] 0.3 mg IM ASDIRECTED 10/08/18 [History] Furosemide 40 mg PO DAILY 10/08/18 [History] Liraglutide [Victoza] 1.8 mg SQ DAILY 10/08/18 [History] Lisinopril 20 mg PO BID 10/08/18 [History] Metoprolol Succinate 100 mg PO DAILY 10/08/18 [History] Olopatadine [Patanol 0.1% Ophth Soln] 0.2 dose EYEBOTH DAILY 10/08/18 [History] Potassium Chloride 20 meq PO TID 10/08/18 [History] Rivaroxaban [Xarelto] 20 mg PO DAILY 10/08/18 [History] Sertraline [Zoloft] 100 mg PO DAILY 10/08/18 [History] allopurinoL [Zyloprim] 100 mg PO DAILY 10/08/18 [History] atorvaSTATin Calcium [Lipitor] 40 mg PO BEDTIME 10/08/18 [History] carBAMazepine [Tegretol] 400 mg PO BID 10/08/18 [History] metFORMIN [Glucophage XR] 500 mg PO TID 10/08/18 [History] risperiDONE 5 mg PO DAILY 10/08/18 [History] traZODone HCl [Trazodone HCl] 150 mg PO BEDTIME 10/08/18 [History] Cyclobenzaprine [Flexeril] 10 mg PO TID PRN #21 tab 10/14/19 [Rx] Azithromycin [Zithromax] 250 mg PO ASDIRECTED #1 dosepk 08/08/19 [Rx] Past Medical History HEENT History: Reports: Other (See Below) Other HEENT History: myopia Cardiovascular History: Reports: Blood Clots/VTE/DVT, Hypertension Respiratory History: Reports: None Gastrointestinal History: Reports: Chronic Constipation, Other (See Below) Other Gastrointestinal History: possible peptic ulcer Genitourinary History: Reports: UTI, Recurrent Musculoskeletal History: Reports: Gout Neurological History: Reports: Seizure Psychiatric History: Reports: Other (See Below) Other Psychiatric History: disruptive behavior disorder NOS Endocrine/Metabolic History: Reports: Diabetes, Type II, Obesity/BMI 30+ Hematologic History: Reports: None Immunologic History: Reports: None Oncologic (Cancer) History: Reports: None Dermatologic History: Reports: Cellulitis, Other (See Below) Other Dermatologic History: tinea pedis, hyperhydrosis, recurring fungus to feet and nails - Infectious Disease History Infectious Disease History: Reports: Measles - Past Surgical History Male Surgical History: Reports: Other (See Below) Social & Family History - Family History Family Medical History: Noncontributory - Caffeine Use Caffeine Use: Reports: Soda ED ROS ENT - Review of Systems Review Of Systems: Comprehensive ROS is negative, except as noted in HPI. ED EXAM, ENT - Physical Exam Exam: See Below (see dictation) Course - Vital Signs Last Recorded V/S: Last Vital Signs Temp 97.5 F 08/08/19 10:22 Pulse 82 08/08/19 10:22 Resp 18 08/08/19 10:22 BP 152/90 H 08/08/19 10:22 Pulse Ox 95 08/08/19 10:22 - Orders/Labs/Meds Orders: Active Orders 24 hr Category Date Time Status CULTURE STREP A CONFIRMATION [RM] Stat Lab 08/08/19 10:26 Results STREP SCRN A RAPID W CULT CONF [RM] Stat Lab 08/08/19 10:26 Results Sodium Chloride 0.9% [Saline Flush] Med 08/08/19 12:13 Active 10 ml FLUSH ASDIRECTED PRN Sodium Chloride 0.9% [Saline Flush] Med 08/08/19 12:13 Active 2.5 ml FLUSH ASDIRECTED PRN Saline Lock Insert [OM.PC] Stat Oth 08/08/19 12:13 Ordered Medication Orders Sodium Chloride (Saline Flush) 10 ml FLUSH ASDIRECTED PRN PRN Reason: Keep Vein Open Last Admin: 08/08/19 12:58 Dose: 10 ml Sodium Chloride (Saline Flush) 2.5 ml FLUSH ASDIRECTED PRN PRN Reason: Keep Vein Open Last Admin: 08/08/19 12:58 Dose: 2.5 ml Labs: Laboratory Tests 08/08/19 08/08/19 Range/Units 12: 12: WBC 9.13 (4.0-11.0) K/uL RBC 4.21 L (4.50-5.90) M/uL Hgb 13.1 (13.0-17.0) g/dL Hct 38.8 (38.0-50.0) % MCV 92.2 (80.0-98.0) fL MCH 31.1 (27.0-32.0) pg MCHC 33.8 (31.0-37.0) g/dL RDW Std Deviation 44.3 (28.0-62.0) fl RDW Coeff of Giovanni 13 (11.0-15.0) % Plt Count 203 (150-400) K/uL MPV 10.00 (7.40-12.00) fL Neut % (Auto) 76.0 (48.0-80.0) % Lymph % (Auto) 15.6 L (16.0-40.0) % Gaston % (Auto) 7.9 (0.0-15.0) % Eos % (Auto) 0.3 (0.0-7.0) % Baso % (Auto) 0.2 (0.0-1.5) % Neut # (Auto) 6.9 H (1.4-5.7) K/uL Lymph # (Auto) 1.4 (0.6-2.4) K/uL Gaston # (Auto) 0.7 (0.0-0.8) K/uL Eos # (Auto) 0.0 (0.0-0.7) K/uL Baso # (Auto) 0.0 (0.0-0.1) K/uL Nucleated RBC % 0.0 /100WBC Nucleated RBCs # 0 K/uL Sodium 139 (136-148) mmol/L Potassium 4.1 (3.5-5.1) mmol/L Chloride 101 (98-107) mmol/L Carbon Dioxide 30.2 (21.0-32.0) mmol/L BUN 16 (7.0-18.0) mg/dL Creatinine 0.9 (0.8-1.3) mg/dL Est Cr Clr Drug Dosing 90.56 mL/min Estimated GFR (MDRD) > 60.0 ml/min Glucose 103 (74-106) mg/dL Calcium 9.2 (8.5-10.1) mg/dL Meds: Medications Generic Name Dose Route Start Last Admin Trade Name Freq PRN Reason Stop Dose Admin Sodium Chloride 10 ml 08/08/19 12:13 08/08/19 12:58 Saline Flush FLUSH 10 ml ASDIRECTED PRN Administration Keep Vein Open Sodium Chloride 2.5 ml 08/08/19 12:13 08/08/19 12:58 Saline Flush FLUSH 2.5 ml ASDIRECTED PRN Administration Keep Vein Open Discontinued Medications Generic Name Dose Route Start Last Admin Trade Name Freq PRN Reason Stop Dose Admin Ceftriaxone Sodium/Dextrose 1 50 mls @ 100 mls/hr 08/08/19 12:37 08/08/19 12: 58 gm/ Premix IV 08/08/19 13:06 100 mls/hr ONETIME ONE Administration Departure - Departure Time of Disposition: 10:43 Disposition: Home, Self-Care 01 Condition: Good Clinical Impression: Acute sialoadenitis - Discharge Information Prescriptions: Azithromycin [Zithromax] 250 mg PO ASDIRECTED #1 dosepk Instructions: Acute Bronchitis, Adult, [id number], Pharyngitis, [id number] Referrals: Mati Riggs MD [Primary Care Provider] - Forms: ED Department Discharge Additional Instructions: The following information is given to patients seen in the emergency department who are being discharged to home. This information is to outline your options for follow-up care. We provide all patients seen in our emergency department with a follow-up referral. The need for follow-up, as well as the timing and circumstances, are variable depending upon the specifics of your emergency department visit. If you don't have a primary care physician on staff, we will provide you with a referral. We always advise you to contact your personal physician following an emergency department visit to inform them of the circumstance of the visit and for follow-up with them and/or the need for any referrals to a consulting specialist. The emergency department will also refer you to a specialist when appropriate. This referral assures that you have the opportunity for follow-up care with a specialist. All of these measure are taken in an effort to provide you with optimal care, which includes your follow-up. Under all circumstances we always encourage you to contact your private physician who remains a resource for coordinating your care. When calling for follow-up care, please make the office aware that this follow-up is from your recent emergency room visit. If for any reason you are refused follow-up, please contact the [facility] at and asked to speak to the emergency department charge nurse. [facility] [address] [place] [id number] [place] [address] Take antibiotic as instructed Take tylenol as needed Follow up with primary care provider Return to ED as needed as discussed Sepsis Event Note - Focused Exam Vital Signs: Vital Signs Temp Pulse Resp BP Pulse Ox 08/08/19 10:22 97.5 F 82 18 152/90 H 95 Date Exam was Performed: 08/08/19 Time Exam was Performed: 13:10 - My Orders Last 24 Hours: My Active Orders 08/08/19 10:26 CULTURE STREP A CONFIRMATION [RM] Stat STREP SCRN A RAPID W CULT CONF [RM] Stat 08/08/19 12:13 Sodium Chloride 0.9% [Saline Flush] 10 ml FLUSH ASDIRECTED PRN Sodium Chloride 0.9% [Saline Flush] 2.5 ml FLUSH ASDIRECTED PRN Saline Lock Insert [OM.PC] Stat - Assessment/Plan Last 24 Hours: My Active Orders 08/08/19 10:26 CULTURE STREP A CONFIRMATION [RM] Stat STREP SCRN A RAPID W CULT CONF [RM] Stat 08/08/19 12:13 Sodium Chloride 0.9% [Saline Flush] 10 ml FLUSH ASDIRECTED PRN Sodium Chloride 0.9% [Saline Flush] 2.5 ml FLUSH ASDIRECTED PRN Saline Lock Insert [OM.PC] Stat
--- NOTE | 2019-08-08 12:08 | CT ---
INDICATION: Right neck swelling. TECHNIQUE: CT of the neck without contrast. Coronal and sagittal reconstructions. COMPARISON: No prior studies available for comparison at this institution. FINDINGS: There is asymmetric enlargement and edema of the right submandibular gland with adjacent soft tissue swelling consistent with acute sella thyroiditis. There is a 2 cm calculus within the gland. No evidence of intraglandular or extra glandular ductal dilatation. No lymphadenopathy. Scattered normal appearing lymph nodes are present throughout the neck bilaterally. There is mild right submental subcutaneous fat stranding potentially cellulitis. The parotid glands and left submandibular gland are unremarkable. The paranasal sinuses and mastoid air cells are clear, and the airway is widely patent. The oral cavity, pharyngeal and laryngeal spaces are normal in appearance. No periapical lucencies surrounding the visualized teeth. The suprahyoid and infrahyoid spaces are normal. Multilevel mild cervical spondylosis. No lytic or blastic process within the imaged osseous structures. The paraspinous muscles are symmetric and normal in appearance. Visualized portions of the brain are within normal limits. The orbital contents are normal. No abnormality is demonstrated in the mediastinum or supraclavicular regions. No pneumothorax or pleural effusion. The visualized pulmonary apices are clear. IMPRESSION: 1. Asymmetric enlargement and edema of the right submandibular gland with adjacent soft tissue swelling consistent with acute sialoadenitis and large sialolith. There is a 2 cm calculus within the gland. No evidence of intraglandular or extra glandular ductal dilatation. 2. There is mild right submental subcutaneous fat stranding potentially cellulitis. 3. No lymphadenopathy. Please note that all CT scans at this facility use dose modulation, iterative reconstruction, and/or weight-based dosing when appropriate to reduce radiation dose to as low as reasonably achievable. Dictated by Mino Mcdonald MD @ Aug 08 2019 11:56AM Signed by Dr. Mino Mcdonald @ Aug 08 2019 12:06PM
[2019-08-08] MEDS ORDERED: Sodium Chloride 0.9% 10 ML Syringe FLUSH PRN (12:13)
[2019-08-08] MEDS ORDERED: Sodium Chloride 0.9% 2.5 ML Syringe FLUSH PRN (12:13)
[2019-08-08] MEDS ORDERED: cefTRIAXone 1 GM in Premix Bag 1 BAG IV ONE (12:37)
[2019-08-08 12:55] LABS: BLOOD UREA NITROGEN,BUN 16 mg/dL (7.0-18.0); CARBON DIOXIDE,CO2 30.2 mmol/L (21.0-32.0); CHLORIDE,CL 101 mmol/L (98-107); GLUCOSE RANDOM 103 mg/dL (74-106); POTASSIUM,K 4.1 mmol/L (3.5-5.1); SODIUM,NA 139 mmol/L (136-148)
== END 2019-08-08 13:23 | disposition home or self-care (01) ==
LOC: MW.ED 10:11
DX: K11.21 Acute sialoadenitis (principal); I10 Essential (primary) hypertension; M10.9 Gout, unspecified; E11.9 Type 2 diabetes mellitus without complications; E66.9 Obesity, unspecified; Z86.718 Personal history of other venous thrombosis and embolism; Z68.32 Body mass index [BMI] 32.0-32.9, adult; Z88.2 Allergy status to sulfonamides; Z88.8 Allergy status to other drugs, medicaments and biological substances; Z91.030 Bee allergy status; Z79.82 Long term (current) use of aspirin; Z79.899 Other long term (current) drug therapy; Z79.84 Long term (current) use of oral hypoglycemic drugs; Z79.01 Long term (current) use of anticoagulants
CPT/HCPCS: 36415; 70490; 80048; 85025; 87081; 87880; 96365; 99284; J0696; 99283

== ENCOUNTER 2020-07-16 13:51 | Emergency (ER) | payer MEDICARE, MEDICAID ==
--- NOTE | 2020-07-16 15:45 | EDM.PDOC ---
<April Fung R - Last Filed: 07/16/20 17:24> ED HPI GENERAL MEDICAL PROBLEM - General Chief Complaint: Respiratory Problem Stated Complaint: COUGH/SORE THROAT Time Seen by Provider: 07/16/20 13:56 - Related Data Allergies Allergy/AdvReac Type Severity Reaction Status Date / Time bee pollen [Bee Pollen] Allergy Swelling Unverified 07/16/20 14:38 iodine Allergy Swelling Unverified 07/16/20 14:38 Sulfa (Sulfonamide Allergy Swelling Unverified 07/16/20 14:37 Antibiotics) Home Meds: Home Meds Aspirin [Adult Aspirin] 81 mg PO DAILY 10/08/18 [History] Carboxymethylcellulose Sodium [Refresh Plus 0.5%] 1 drop EYEBOTH DAILY 10/08/18 [History] EPINEPHrine [Epipen] 0.3 mg IM ASDIRECTED 10/08/18 [History] Furosemide 40 mg PO DAILY 10/08/18 [History] Liraglutide [Victoza] 1.8 mg SQ DAILY 10/08/18 [History] Lisinopril 20 mg PO BID 10/08/18 [History] Metoprolol Succinate 100 mg PO DAILY 10/08/18 [History] Olopatadine [Patanol 0.1% Ophth Soln] 0.2 dose EYEBOTH DAILY 10/08/18 [History] Potassium Chloride 20 meq PO TID 10/08/18 [History] Rivaroxaban [Xarelto] 20 mg PO DAILY 10/08/18 [History] Sertraline [Zoloft] 100 mg PO DAILY 10/08/18 [History] allopurinoL [Zyloprim] 100 mg PO DAILY 10/08/18 [History] atorvaSTATin Calcium [Lipitor] 40 mg PO BEDTIME 10/08/18 [History] carBAMazepine [Tegretol] 400 mg PO BID 10/08/18 [History] metFORMIN [Glucophage XR] 500 mg PO TID 10/08/18 [History] risperiDONE 5 mg PO DAILY 10/08/18 [History] traZODone HCl [Trazodone HCl] 150 mg PO BEDTIME 10/08/18 [History] Cyclobenzaprine [Flexeril] 10 mg PO TID PRN #21 tab 05/31/19 [Rx] Azithromycin [Zithromax] 250 mg PO ASDIRECTED #1 dosepk 08/08/19 [Rx] Course - Re-Assessments/Exams Free Text/Narrative Re-Assessment/Exam: I monitored his oxygen saturations which were between 94 and 96% on room air. Again, he is a resident of a local [facility] and arrives at the ED unaccompanied and without further history than that he complained of a sore throat and a little cough. He told me he is here for a sore throat and because he is "old". 07/16/20 17:24 Departure - Departure Time of Disposition: 17:24 Disposition: Home, Self-Care 01 Condition: Good Clinical Impression: COVID-19 - Discharge Information *PRESCRIPTION DRUG MONITORING PROGRAM REVIEWED*: Not Applicable *COPY OF PRESCRIPTION DRUG MONITORING REPORT IN PATIENT HIRO: Not Applicable Instructions: COVID-19 Frequently Asked Questions, COVID-19, COVID-19: How to Protect Yourself and Others - CDC, Prevent the Spread of COVID-19 if You Are Sick - [facility] Referrals: Mati Riggs MD [Primary Care Provider] - Forms: ED Department Discharge Additional Instructions: 1. Drink plenty of fluids and rest. 2. Tylenol and Ibuprofen as needed for fever or body aches. 3. Quarantine next 14 days or per state health department directive. 4. Return promptly for breathing problems or vomiting and not keeping down oral fluids. In the ER the patient's oxygen saturations were good and his chest X- ray showed minimal if any lung infiltrates. <Tuyet Salas - Last Filed: 07/17/20 10:35> ED HPI GENERAL MEDICAL PROBLEM - General Source of Information: Reports: Patient History Limitations: Reports: Other (Mentally disabled) - History of Present Illness INITIAL COMMENTS - FREE TEXT/NARRATIVE: HISTORY AND PHYSICAL: History of present illness: HPI is limited to to patient with underlying mental disability. Is a 60-year-old male, who presents to the emergency room today from the [facility], with concern of sore throat and cough since last night. Patient states his main symptom is his sore throat but does state he has a slight cough. Patient states that he has been eating and drinking without any difficulty but does have some pain when he swallows. Patient denies fever, chills, chest pain, shortness of breath. Denies headache, neck stiff ness, change in vision, syncope, or near syncope. Denies nausea, vomiting, abdominal pain, diarrhea, constipation, or dysuria. Has not noted any blood in urine or stool. Patient has been eating and drinking appropriately. Review of systems: As per history of present illness and below otherwise all systems reviewed and negative. Past medical history: As per history of present illness and as reviewed below otherwise noncontributory. Surgical history: As per history of present illness and as reviewed below otherwise noncontributory. Social history: See social history for further information Family history: As per history of present illness and as reviewed below otherwise noncontributory. Physical exam: General: Patient is alert, oriented, and in no acute distress. Patient sitting comfortably on exam table. Vitals stable and reviewed by me. O2 on exam 93%-95% HEENT: Atraumatic, normocephalic, pupils equal and reactive bilaterally, negative for conjunctival pallor or scleral icterus, mucous membranes moist, TMs normal bilaterally, throat clear, neck supple, tonsils equal without exudate, uvula midline, nontender, trachea midline. No drooling or trismus noted. No me ningeal signs. No hot potato voice noted. Lungs: Dry cough on exam. Patient speaking clearly without breathlessness, no wheezing or stridor, no accessory muscle use or respiratory distress. Auscultat ion deferred due to current COV-ID 19 outbreak. Heart: Auscultation deferred due to current COV-ID 19 outbreak. Abdomen: Morbidly obese. Soft, nondistended, nontender. Negative for masses or hepatosplenomegaly. Negative for costovertebral tenderness. Pelvis: Stable nontender. Genitourinary: Deferred. Rectal: Deferred. Skin: Intact, warm, dry. No lesions or rashes noted. Extremities: Atraumatic, negative for cords or calf pain. Neurovascular unremarkable. Neuro: Awake, alert, oriented. Cranial nerves II through XII unremarkable. Cerebellum unremarkable. Motor and sensory unremarkable throughout. Exam nonfocal. Notes: April Fung NP, has assumed care of patient at 16:00 and will follow remaining diagnostics and disposition for patient. Diagnostics: COVID-19, Influenza, Strep Therapeutics: Prescription: Impression: Cough Pharyngitis Plan: Definitive disposition and diagnosis as appropriate pending reevaluation and review of above. Throat Pain Score (Numeric/FACES): 5 Past Medical History HEENT History: Reports: Other (See Below) Other HEENT History: myopia Cardiovascular History: Reports: Blood Clots/VTE/DVT, Hypertension Respiratory History: Reports: None Gastrointestinal History: Reports: Chronic Constipation, Other (See Below) Other Gastrointestinal History: possible peptic ulcer Genitourinary History: Reports: UTI, Recurrent Musculoskeletal History: Reports: Gout Neurological History: Reports: Seizure Psychiatric History: Reports: Other (See Below) Other Psychiatric History: disruptive behavior disorder NOS Endocrine/Metabolic History: Reports: Diabetes, Type II, Obesity/BMI 30+ Hematologic History: Reports: None Immunologic History: Reports: None Oncologic (Cancer) History: Reports: None Dermatologic History: Reports: Cellulitis, Other (See Below) Other Dermatologic History: tinea pedis, hyperhydrosis, recurring fungus to feet and nails - Infectious Disease History Infectious Disease History: Reports: Measles - Past Surgical History Head Surgeries/Procedures: Reports: None HEENT Surgical History: Reports: None Cardiovascular Surgical History: Reports: None Respiratory Surgical History: Reports: None GI Surgical History: Reports: None Male Surgical History: Reports: Other (See Below) Other Male Surgeries/Procedures: cystoscopy Endocrine Surgical History: Reports: None Musculoskeletal Surgical History: Reports: None Oncologic Surgical History: Reports: None Dermatological Surgical History: Reports: None Social & Family History - Family History Family Medical History: No Pertinent Family History - Tobacco Use Tobacco Use Status *Q: Never Tobacco User - Caffeine Use Caffeine Use: Reports: None - Recreational Drug Use Recreational Drug Use: No ED ROS GENERAL - Review of Systems Review Of Systems: Comprehensive ROS is negative, except as noted in HPI. ED EXAM, GENERAL - Physical Exam Exam: See Below (see dictation) Course - Vital Signs Last Recorded V/S: Last Vital Signs Temp 98.8 F 07/16/20 14:32 Pulse 90 07/16/20 19:57 Resp 18 07/16/20 19:57 BP 132/81 07/16/20 19:57 Pulse Ox 94 L 07/16/20 19:57 - Orders/Labs/Meds Orders: Active Orders 24 hr Category Date Time Status CULTURE STREP A CONFIRMATION [RM] Stat Lab 07/16/20 15:27 Results STREP SCRN A RAPID W CULT CONF [RM] Stat Lab 07/16/20 15:27 Results Isolation [COMM] Routine Oth 07/16/20 14:58 Active Labs: Laboratory Tests 07/16/20 Range/Units 15:27 SARS-CoV-2 RNA (LEE ANN) POSITIVE H (NEGATIVE) Sepsis Event Note (ED) - Evaluation Sepsis Screening Result: No Definite Risk - My Orders Last 24 Hours: My Active Orders 07/16/20 14:58 Isolation [COMM] Routine 07/16/20 15:27 CULTURE STREP A CONFIRMATION [RM] Stat STREP SCRN A RAPID W CULT CONF [RM] Stat - Assessment/Plan Last 24 Hours: My Active Orders 07/16/20 14:58 Isolation [COMM] Routine 07/16/20 15:27 CULTURE STREP A CONFIRMATION [RM] Stat STREP SCRN A RAPID W CULT CONF [RM] Stat
--- NOTE | 2020-07-16 17:23 | CR ---
TECHNIQUE: Portable AP chest radiograph. INDICATION: Chest pain, dyspnea. COMPARISON: 06/09/2019. FINDINGS: Mild left basilar patchy opacities. No pneumothorax or appreciable pleural effusion. Normal cardiac and mediastinal contours. IMPRESSION: Mild left basilar opacities, possibly atelectasis though infection included COVID-19 is possible. Dictated by Chito Burt MD @ 07/16/2020 5:21:38 PM Dictated by: Chito Burt MD @ 07/16/2020 17:21:46 (Electronically Signed)
== END 2020-07-16 18:04 | disposition home or self-care (01) ==
LOC: MW.ED 13:51
DX: U07.1 COVID-19 (principal); J02.9 Acute pharyngitis, unspecified; I10 Essential (primary) hypertension; R56.9 Unspecified convulsions; E11.9 Type 2 diabetes mellitus without complications; E66.01 Morbid (severe) obesity due to excess calories; Z68.43 Body mass index [BMI] 50.0-59.9, adult; Z91.030 Bee allergy status; Z88.8 Allergy status to other drugs, medicaments and biological substances; Z88.2 Allergy status to sulfonamides; Z79.82 Long term (current) use of aspirin; Z79.899 Other long term (current) drug therapy; Z79.01 Long term (current) use of anticoagulants
CPT/HCPCS: 71045; 87081; 87804; 87880; 99283; U0002; 99282

== ENCOUNTER 2020-11-05 09:18 | Inpatient (IN) | payer MEDICARE, MEDICAID ==
--- NOTE | 2020-11-05 10:07 | EDM.PDOC ---
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 When she arrived states that his pants were covered in urine patient dates that he made a mistake in urine and himself. Patient dates he cannot control his bladder. Patient denies any abdominal pain back pain or falls or injuries to the area. While waiting patient also reported some chest pain to the triage nurse. 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 Patient denies any shortness of breath in the next pain worsen or better. general Pain Score (Numeric/FACES): 10 - Related Data Allergies Allergy/AdvReac Type Severity Reaction Status Date / Time bee pollen [Bee Pollen] Allergy Swelling Verified 11/05/20 10:01 iodine Allergy Swelling Verified 11/05/20 10:01 Sulfa (Sulfonamide Allergy Swelling Verified 11/05/20 10:01 Antibiotics) Home Meds: Home Meds Aspirin [Adult Aspirin] 81 mg PO DAILY 10/08/18 [History] Carboxymethylcellulose Sodium [Refresh Plus 0.5%] 1 drop EYEBOTH BID 10/08/18 [History] EPINEPHrine [Epipen] 0.3 mg IM ASDIRECTED 10/08/18 [History] Liraglutide [Victoza] 1.8 mg SQ DAILY 10/08/18 [History] Lisinopril 20 mg PO BID 10/08/18 [History] Metoprolol Succinate 100 mg PO DAILY 10/08/18 [History] Olopatadine [Patanol 0.1% Ophth Soln] 0.2 dose EYEBOTH DAILY 10/08/18 [History] Potassium Chloride 20 meq PO TID 10/08/18 [History] Rivaroxaban [Xarelto] 20 mg PO DAILY 10/08/18 [History] Sertraline [Zoloft] 150 mg PO DAILY 10/08/18 [History] allopurinoL [Zyloprim] 100 mg PO DAILY 10/08/18 [History] atorvaSTATin Calcium [Lipitor] 40 mg PO BEDTIME 10/08/18 [History] carBAMazepine [Tegretol] 400 mg PO BID 10/08/18 [History] risperiDONE 0.25 mg PO BEDTIME 10/08/18 [History] traZODone HCl [Trazodone HCl] 150 mg PO BEDTIME 10/08/18 [History] Furosemide 40 mg PO DAILY 07/18/20 [History] metFORMIN [Glucophage] 1,000 mg PO BIDMEALS 07/21/20 [History] Furosemide [Lasix] 40 mg PO DAILY tablet 07/22/20 [Rx] Sertraline [Zoloft] 150 mg PO DAILY tablet 07/22/20 [Rx] dexAMETHasone [Dexamethasone] 6 mg PO Q24H 7 Days #7 tablet 07/22/20 [Rx] risperiDONE [RisperiDAL] 0.25 mg PO BEDTIME tablet 07/22/20 [Rx] Past Medical History HEENT History: Reports: Other (See Below) Other HEENT History: myopia Cardiovascular History: Reports: Blood Clots/VTE/DVT, Hypertension Respiratory History: Reports: Asthma Gastrointestinal History: Reports: Chronic Constipation, Other (See Below) Other Gastrointestinal History: possible peptic ulcer Genitourinary History: Reports: UTI, Recurrent Musculoskeletal History: Reports: Gout Neurological History: Reports: Seizure Psychiatric History: Reports: Other (See Below) Other Psychiatric History: disruptive behavior disorder NOS Endocrine/Metabolic History: Reports: Diabetes, Type II, Obesity/BMI 30+ Hematologic History: Reports: None Immunologic History: Reports: None Oncologic (Cancer) History: Reports: None Dermatologic History: Reports: Cellulitis, Other (See Below) Other Dermatologic History: tinea pedis, hyperhydrosis, recurring fungus to feet and nails - Infectious Disease History Infectious Disease History: Reports: Measles - Past Surgical History Head Surgeries/Procedures: Reports: None HEENT Surgical History: Reports: None Cardiovascular Surgical History: Reports: None Respiratory Surgical History: Reports: None GI Surgical History: Reports: None Male Surgical History: Reports: Other (See Below) Other Male Surgeries/Procedures: cystoscopy Endocrine Surgical History: Reports: None Musculoskeletal Surgical History: Reports: None Oncologic Surgical History: Reports: None Dermatological Surgical History: Reports: None Social & Family History - Family History Family Medical History: No Pertinent Family History - Caffeine Use Caffeine Use: Reports: None ED ROS GENERAL - Review of Systems Review Of Systems: See Below Constitutional: Reports: No Symptoms HEENT: Reports: No Symptoms Respiratory: Reports: No Symptoms Cardiovascular: Reports: Chest Pain Endocrine: Reports: No Symptoms GI/Abdominal: Reports: No Symptoms : Reports: Dysuria Musculoskeletal: Reports: No Symptoms Skin: Reports: No Symptoms Neurological: Reports: No Symptoms Psychiatric: Reports: No Symptoms Hematologic/Lymphatic: Reports: No Symptoms Immunologic: Reports: No Symptoms ED EXAM, RENAL/ - Physical Exam Exam: See Below Exam Limited By: No Limitations General Appearance: Alert, WD/WN Neck: Non-Tender Respiratory/Chest: No Respiratory Distress, Lungs Clear Cardiovascular: Normal Peripheral Pulses, Regular Rate, Rhythm GI/Abdominal: Normal Bowel Sounds, Soft, Non-Tender Back Exam: Normal Inspection. No: Vertebral Tenderness Neurological: Alert, Normal Gait #1 Interpretation EKG Date: 11/05/20 Time: 09:40 Rhythm: NSR Rate (Beats/Min): 98 ST-T: Normal Course - Vital Signs Last Recorded V/S: Last Vital Signs Temp 98.3 F 11/05/20 09:18 Pulse 102 H 11/05/20 09:18 Resp 18 11/05/20 09:18 BP 144/80 H 11/05/20 09:18 Pulse Ox 92 L 11/05/20 09:18 - Orders/Labs/Meds Orders: Active Orders 24 hr Category Date Time Status Patient Status [ADT] Routine ADT 11/05/20 11:32 Ordered Chest 1V Frontal [CR] Stat Exams 11/05/20 10:01 Taken UA W/NUVIA RFLX IF INDICATED [URIN] Stat Lab 11/05/20 10:00 Ordered Labs: Laboratory Tests 11/05/20 11/05/20 11/05/20 Range/Units 09:45 09:45 09:45 WBC 16.13 H (4.0-11.0) K/uL RBC 4.24 L (4.50-5.90) M/uL Hgb 12.5 L (13.0-17.0) g/dL Hct 38.6 (38.0-50.0) % MCV 91.0 (80.0-98.0) fL MCH 29.5 (27.0-32.0) pg MCHC 32.4 (31.0-37.0) g/dL RDW Std Deviation 47.7 (28.0-62.0) fl RDW Coeff of Giovanni 14 (11.0-15.0) % Plt Count 210 (150-400) K/uL MPV 9.90 (7.40-12.00) fL Neut % (Auto) 86.3 H (48.0-80.0) % Lymph % (Auto) 4.9 L (16.0-40.0) % Robeson % (Auto) 8.8 (0.0-15.0) % Eos % (Auto) 0.0 (0.0-7.0) % Baso % (Auto) 0.0 (0.0-1.5) % Neut # (Auto) 13.9 H (1.4-5.7) K/uL Lymph # (Auto) 0.8 (0.6-2.4) K/uL Robeson # (Auto) 1.4 H (0.0-0.8) K/uL Eos # (Auto) 0.0 (0.0-0.7) K/uL Baso # (Auto) 0.0 (0.0-0.1) K/uL Nucleated RBC % 0.0 /100WBC Nucleated RBCs # 0 K/uL INR 1.20 APTT 35.9 H (18.6-31.3) SEC Sodium 136 (136-148) mmol/L Potassium 3.6 (3.5-5.1) mmol/L Chloride 99 (98-107) mmol/L Carbon Dioxide 26.1 (21.0-32.0) mmol/L BUN 11 (7.0-18.0) mg/dL Creatinine 1.1 (0.8-1.3) mg/dL Est Cr Clr Drug Dosing 73.20 mL/min Estimated GFR (MDRD) > 60.0 ml/min Glucose 154 H (74-106) mg/dL Calcium 8.8 (8.5-10.1) mg/dL Phosphorus 2.5 L (2.6-4.7) mg/dL Magnesium 1.7 L (1.8-2.4) mg/dL Total Bilirubin 0.5 (0.2-1.0) mg/dL AST 14 L (15-37) IU/L ALT 25 (14-63) IU/L Alkaline Phosphatase 91 (46-116) U/L Creatine Kinase 70 (26-308) U/L Troponin I < 0.050 (0.000-0.056) ng/mL Total Protein 8.1 (6.4-8.2) g/dL Albumin 3.2 L (3.4-5.0) g/dL Globulin 4.9 H (2.6-4.0) g/dL Albumin/Globulin Ratio 0.7 L (0.9-1.6) Lipase 109 (73-393) U/L Influenza Type A RNA (NEGATIVE) Influenza Type B RNA (NEGATIVE) SARS-CoV-2 RNA (LEE ANN) (NEGATIVE) 11/05/20 Range/Units 10:11 WBC (4.0-11.0) K/uL RBC (4.50-5.90) M/uL Hgb (13.0-17.0) g/dL Hct (38.0-50.0) % MCV (80.0-98.0) fL MCH (27.0-32.0) pg MCHC (31.0-37.0) g/dL RDW Std Deviation (28.0-62.0) fl RDW Coeff of Giovanni (11.0-15.0) % Plt Count (150-400) K/uL MPV (7.40-12.00) fL Neut % (Auto) (48.0-80.0) % Lymph % (Auto) (16.0-40.0) % Robeson % (Auto) (0.0-15.0) % Eos % (Auto) (0.0-7.0) % Baso % (Auto) (0.0-1.5) % Neut # (Auto) (1.4-5.7) K/uL Lymph # (Auto) (0.6-2.4) K/uL Robeson # (Auto) (0.0-0.8) K/uL Eos # (Auto) (0.0-0.7) K/uL Baso # (Auto) (0.0-0.1) K/uL Nucleated RBC % /100WBC Nucleated RBCs # K/uL INR APTT (18.6-31.3) SEC Sodium (136-148) mmol/L Potassium (3.5-5.1) mmol/L Chloride (98-107) mmol/L Carbon Dioxide (21.0-32.0) mmol/L BUN (7.0-18.0) mg/dL Creatinine (0.8-1.3) mg/dL Est Cr Clr Drug Dosing mL/min Estimated GFR (MDRD) ml/min Glucose (74-106) mg/dL Calcium (8.5-10.1) mg/dL Phosphorus (2.6-4.7) mg/dL Magnesium (1.8-2.4) mg/dL Total Bilirubin (0.2-1.0) mg/dL AST (15-37) IU/L ALT (14-63) IU/L Alkaline Phosphatase (46-116) U/L Creatine Kinase (26-308) U/L Troponin I (0.000-0.056) ng/mL Total Protein (6.4-8.2) g/dL Albumin (3.4-5.0) g/dL Globulin (2.6-4.0) g/dL Albumin/Globulin Ratio (0.9-1.6) Lipase (73-393) U/L Influenza Type A RNA NEGATIVE (NEGATIVE) Influenza Type B RNA NEGATIVE (NEGATIVE) SARS-CoV-2 RNA (LEE ANN) NEGATIVE (NEGATIVE) - Re-Assessments/Exams Free Text/Narrative Re-Assessment/Exam: 11/05/20 11:34 Planing of chest pain. Initial troponins are negative. Will admit patient observation to trend troponins. Departure - Departure Time of Disposition: 11:33 Disposition: Admitted As Inpatient 68 Condition: Good Clinical Impression: Chest pain, Urinary incontinence - Discharge Information *PRESCRIPTION DRUG MONITORING PROGRAM REVIEWED*: Not Applicable *COPY OF PRESCRIPTION DRUG MONITORING REPORT IN PATIENT HIRO: Not Applicable Referrals: Mati Riggs MD [Primary Care Provider] - Forms: ED Department Discharge Sepsis Event Note (ED) - Focused Exam Vital Signs: Vital Signs Temp Pulse Resp BP Pulse Ox 11/05/20 09:18 98.3 F 102 H 18 144/80 H 92 L - My Orders Last 24 Hours: My Active Orders 11/05/20 10:00 UA W/NUVIA RFLX IF INDICATED [URIN] Stat 11/05/20 10:01 Chest 1V Frontal [CR] Stat 11/05/20 11:32 Patient Status [ADT] Routine - Assessment/Plan Last 24 Hours: My Active Orders 11/05/20 10:00 UA W/NUVIA RFLX IF INDICATED [URIN] Stat 11/05/20 10:01 Chest 1V Frontal [CR] Stat 11/05/20 11:32 Patient Status [ADT] Routine Plan: Pt is a 60-year-old male who presents today initially for losing close bladder and urinated on himself. Patient also complained of some chest pain. Patient has a heart score of 2 due to risk factors and age. Will obtain EKG labs and reassess.
[2020-11-05 10:25] LABS: BLOOD UREA NITROGEN,BUN 11 mg/dL (7.0-18.0); CARBON DIOXIDE,CO2 26.1 mmol/L (21.0-32.0); CHLORIDE,CL 99 mmol/L (98-107); GLUCOSE RANDOM 154 mg/dL (74-106); LIPASE 109 U/L (73-393); POTASSIUM,K 3.6 mmol/L (3.5-5.1); SODIUM,NA 136 mmol/L (136-148)
[2020-11-05 11:10] LABS: CORONAVIRUS COVID-19 NAA NEGATIVE (NEGATIVE); INFLUENZA A NAA NEGATIVE (NEGATIVE); INFLUENZA B NAA NEGATIVE (NEGATIVE)
--- NOTE | 2020-11-05 11:35 | CR ---
HISTORY: Chest pain. COMPARISON: 07/18/2020. FINDINGS: AP views of the chest. The lungs are clear. Heart size and pulmonary vascularity within normal limits. No pleural effusion. Degenerative changes in the shoulders. Dictated by Evelyne Ochoa MD @ Nov 05 2020 11:33AM Signed by Dr. Evelyne Ochoa @ Nov 05 2020 11:33AM
[2020-11-05] MEDS ORDERED: Glucagon,Human Recombinant 1 MG Vial IM PRN (11:40)
[2020-11-05] MEDS ORDERED: 50% Dextrose in Water 50 ML Syringe IV PRN (11:40)
--- NOTE | 2020-11-05 11:42 | PCM.HP.2 ---
H&P History of Present Illness - General Date of Service: 11/05/20 Admit Problem/Dx: Admission Diagnosis/Problem Admission Diagnosis/Problem Chest pain - History of Present Illness Initial Comments - Free Text/Narative: 60 yo male with pmh of HTN, DVT, seizure disorder, and DM who presents with one day history of dysuria, urinary frequency and incontinence. Patient reports right sided pain, fevers and chills. Patient currently denies any chest pain. general Pain Score (Numeric/FACES): 10 - Related Data Allergies/Adverse Reactions: Allergies Allergy/AdvReac Type Severity Reaction Status Date / Time bee pollen [Bee Pollen] Allergy Swelling Verified 11/05/20 14:04 iodine Allergy Swelling Verified 11/05/20 14:04 Sulfa (Sulfonamide Allergy Swelling Verified 11/05/20 14:04 Antibiotics) Home Medications: Home Meds Aspirin [Adult Aspirin] 81 mg PO DAILY 10/08/18 [History] Carboxymethylcellulose Sodium [Refresh Plus 0.5%] 1 drop EYEBOTH BID 10/08/18 [History] EPINEPHrine [Epipen] 0.3 mg IM ASDIRECTED PRN 10/08/18 [History] Liraglutide [Victoza] 1.8 mg SQ DAILY 10/08/18 [History] Metoprolol Succinate 100 mg PO DAILY 10/08/18 [History] Olopatadine [Patanol 0.1% Oph Soln] 1 drop EYEBOTH DAILY 10/08/18 [History] Potassium Chloride 20 meq PO TID 10/08/18 [History] Rivaroxaban [Xarelto] 20 mg PO DAILY 10/08/18 [History] allopurinoL [Zyloprim] 100 mg PO DAILY 10/08/18 [History] atorvaSTATin Calcium [Lipitor] 40 mg PO BEDTIME 10/08/18 [History] carBAMazepine [Tegretol] 400 mg PO BID 10/08/18 [History] risperiDONE 0.25 mg PO BEDTIME 10/08/18 [History] traZODone HCl [Trazodone HCl] 150 mg PO BEDTIME 10/08/18 [History] metFORMIN [Glucophage] 1,000 mg PO BIDMEALS 07/21/20 [History] Sertraline [Zoloft] 150 mg PO DAILY tablet 07/22/20 [Rx] Acetaminophen 650 mg PO DAILY 11/05/20 [History] Diclofenac Potassium [Zipsor] 50 mg PO BID PRN 11/05/20 [History] Diclofenac Sodium [Voltaren 1% Gel] 1 applic TOP QID PRN 11/05/20 [History] Past Medical History HEENT History: Reports: Other (See Below) Other HEENT History: myopia Cardiovascular History: Reports: Blood Clots/VTE/DVT, Hypertension Respiratory History: Reports: Asthma Gastrointestinal History: Reports: Chronic Constipation, Other (See Below) Other Gastrointestinal History: possible peptic ulcer Genitourinary History: Reports: UTI, Recurrent Musculoskeletal History: Reports: Gout Neurological History: Reports: Seizure Psychiatric History: Reports: Other (See Below) Other Psychiatric History: disruptive behavior disorder NOS Endocrine/Metabolic History: Reports: Diabetes, Type II, Obesity/BMI 30+ Hematologic History: Reports: None Immunologic History: Reports: None Oncologic (Cancer) History: Reports: None Dermatologic History: Reports: Cellulitis, Other (See Below) Other Dermatologic History: tinea pedis, hyperhydrosis, recurring fungus to feet and nails - Infectious Disease History Infectious Disease History: Reports: Measles - Past Surgical History Head Surgeries/Procedures: Reports: None HEENT Surgical History: Reports: None Cardiovascular Surgical History: Reports: None Respiratory Surgical History: Reports: None GI Surgical History: Reports: None Male Surgical History: Reports: Other (See Below) Other Male Surgeries/Procedures: cystoscopy Endocrine Surgical History: Reports: None Musculoskeletal Surgical History: Reports: None Oncologic Surgical History: Reports: None Dermatological Surgical History: Reports: None Social & Family History - Family History Family Medical History: No Pertinent Family History - Caffeine Use Caffeine Use: Reports: None H&P Review of Systems - Review of Systems: Review Of Systems: Comprehensive ROS is negative, except as noted in HPI. Exam - Exam Exam: See Below - Vital Signs Vital Signs: Last Vital Signs Temp 36.8 C 11/05/20 09:18 Pulse 102 H 11/05/20 09:18 Resp 18 11/05/20 09:18 BP 144/80 H 11/05/20 09:18 Pulse Ox 92 L 11/05/20 09:18 Weight: 99.79 kg - Exam General: Alert, Oriented HEENT: Mucosa Moist & [place] Neck: Supple Lungs: Clear to Auscultation, Normal Respiratory Effort Cardiovascular: Regular Rate, Regular Rhythm GI/Abdominal Exam: Normal Bowel Sounds, Soft, Non-Tender Extremities: Non-Tender, No Pedal Edema Skin: Warm, Dry, Intact - Patient Data Lab Results Last 24 hrs: Laboratory Results - last 24 hr 11/05/20 11/05/20 11/05/20 Range/Units 09:45 09:45 09:45 WBC 16.13 H (4.0-11.0) K/uL RBC 4.24 L (4.50-5.90) M/uL Hgb 12.5 L (13.0-17.0) g/dL Hct 38.6 (38.0-50.0) % MCV 91.0 (80.0-98.0) fL MCH 29.5 (27.0-32.0) pg MCHC 32.4 (31.0-37.0) g/dL RDW Std Deviation 47.7 (28.0-62.0) fl RDW Coeff of Giovanni 14 (11.0-15.0) % Plt Count 210 (150-400) K/uL MPV 9.90 (7.40-12.00) fL Neut % (Auto) 86.3 H (48.0-80.0) % Lymph % (Auto) 4.9 L (16.0-40.0) % Tyler % (Auto) 8.8 (0.0-15.0) % Eos % (Auto) 0.0 (0.0-7.0) % Baso % (Auto) 0.0 (0.0-1.5) % Neut # (Auto) 13.9 H (1.4-5.7) K/uL Lymph # (Auto) 0.8 (0.6-2.4) K/uL Tyler # (Auto) 1.4 H (0.0-0.8) K/uL Eos # (Auto) 0.0 (0.0-0.7) K/uL Baso # (Auto) 0.0 (0.0-0.1) K/uL Nucleated RBC % 0.0 /100WBC Nucleated RBCs # 0 K/uL INR 1.20 APTT 35.9 H (18.6-31.3) SEC Sodium 136 (136-148) mmol/L Potassium 3.6 (3.5-5.1) mmol/L Chloride 99 (98-107) mmol/L Carbon Dioxide 26.1 (21.0-32.0) mmol/L BUN 11 (7.0-18.0) mg/dL Creatinine 1.1 (0.8-1.3) mg/dL Est Cr Clr Drug Dosing 73.20 mL/min Estimated GFR (MDRD) > 60.0 ml/min Glucose 154 H (74-106) mg/dL Calcium 8.8 (8.5-10.1) mg/dL Phosphorus 2.5 L (2.6-4.7) mg/dL Magnesium 1.7 L (1.8-2.4) mg/dL Total Bilirubin 0.5 (0.2-1.0) mg/dL AST 14 L (15-37) IU/L ALT 25 (14-63) IU/L Alkaline Phosphatase 91 (46-116) U/L Creatine Kinase 70 (26-308) U/L Troponin I < 0.050 (0.000-0.056) ng/mL Total Protein 8.1 (6.4-8.2) g/dL Albumin 3.2 L (3.4-5.0) g/dL Globulin 4.9 H (2.6-4.0) g/dL Albumin/Globulin Ratio 0.7 L (0.9-1.6) Lipase 109 (73-393) U/L Influenza Type A RNA (NEGATIVE) Influenza Type B RNA (NEGATIVE) SARS-CoV-2 RNA (LEE ANN) (NEGATIVE) 11/05/20 Range/Units 10:11 WBC (4.0-11.0) K/uL RBC (4.50-5.90) M/uL Hgb (13.0-17.0) g/dL Hct (38.0-50.0) % MCV (80.0-98.0) fL MCH (27.0-32.0) pg MCHC (31.0-37.0) g/dL RDW Std Deviation (28.0-62.0) fl RDW Coeff of Giovanni (11.0-15.0) % Plt Count (150-400) K/uL MPV (7.40-12.00) fL Neut % (Auto) (48.0-80.0) % Lymph % (Auto) (16.0-40.0) % Tyler % (Auto) (0.0-15.0) % Eos % (Auto) (0.0-7.0) % Baso % (Auto) (0.0-1.5) % Neut # (Auto) (1.4-5.7) K/uL Lymph # (Auto) (0.6-2.4) K/uL Tyler # (Auto) (0.0-0.8) K/uL Eos # (Auto) (0.0-0.7) K/uL Baso # (Auto) (0.0-0.1) K/uL Nucleated RBC % /100WBC Nucleated RBCs # K/uL INR APTT (18.6-31.3) SEC Sodium (136-148) mmol/L Potassium (3.5-5.1) mmol/L Chloride (98-107) mmol/L Carbon Dioxide (21.0-32.0) mmol/L BUN (7.0-18.0) mg/dL Creatinine (0.8-1.3) mg/dL Est Cr Clr Drug Dosing mL/min Estimated GFR (MDRD) ml/min Glucose (74-106) mg/dL Calcium (8.5-10.1) mg/dL Phosphorus (2.6-4.7) mg/dL Magnesium (1.8-2.4) mg/dL Total Bilirubin (0.2-1.0) mg/dL AST (15-37) IU/L ALT (14-63) IU/L Alkaline Phosphatase (46-116) U/L Creatine Kinase (26-308) U/L Troponin I (0.000-0.056) ng/mL Total Protein (6.4-8.2) g/dL Albumin (3.4-5.0) g/dL Globulin (2.6-4.0) g/dL Albumin/Globulin Ratio (0.9-1.6) Lipase (73-393) U/L Influenza Type A RNA NEGATIVE (NEGATIVE) Influenza Type B RNA NEGATIVE (NEGATIVE) SARS-CoV-2 RNA (LEE ANN) NEGATIVE (NEGATIVE) Result Diagrams: 11/05/20 09:45 11/05/20 09:45 Sepsis Event Note - Evaluation Sepsis Screening Result: No Definite Risk - Focused Exam Vital Signs: Vital Signs Temp Pulse Resp BP Pulse Ox 11/05/20 09:18 36.8 C 102 H 18 144/80 H 92 L Problem List Initiated/Reviewed/Updated: Yes Orders Last 24hrs: Active Orders 24 hr Category Date Time Status Patient Status [ADT] Routine ADT 11/05/20 11:32 Active Blood Glucose Check, Bedside [RC] TIDAC Care 11/05/20 11:40 Ordered TROPONIN I [CHEM] Q6H Lab 11/05/20 16:00 Ordered TROPONIN I [CHEM] Q6H Lab 11/05/20 22:00 Ordered UA W/NUVIA RFLX IF INDICATED [URIN] Stat Lab 11/05/20 11:25 Received Aspirin [Halfprin] Med 11/06/20 09:00 Ordered 81 mg PO DAILY Dextrose 50% in Water Med 11/05/20 11:40 Ordered 50 ml IV ASDIRECTED PRN Glucagon,Human Recombinant [GlucaGen] Med 11/05/20 11:40 Ordered 1 mg IM ASDIRECTED PRN Insulin Aspart [NovoLOG] Med 11/05/20 17:00 Ordered See Protocol SUBCUT TIDAC Lisinopril Med 11/05/20 21:00 Ordered 20 mg PO BID Metoprolol Succinate [Toprol XL] Med 11/06/20 09:00 Ordered 100 mg PO DAILY Rivaroxaban [Xarelto] Med 11/06/20 09:00 Ordered 20 mg PO DAILY Sertraline [Zoloft] Med 11/06/20 09:00 Ordered 150 mg PO DAILY atorvaSTATin [Lipitor] Med 11/05/20 21:00 Ordered 40 mg PO BEDTIME carBAMazepine [TEGretol Tab] Med 11/05/20 21:00 Ordered 400 mg PO BID risperiDONE [RisperiDAL] Med 11/05/20 21:00 Ordered 0.25 mg PO BEDTIME Medication Orders Aspirin (Aspirin 81 Mg Tab.Ec) 81 mg PO DAILY JOSE Atorvastatin Calcium (Atorvastatin 40 Mg Tab) 40 mg PO BEDTIME JOSE Carbamazepine (Carbamazepine 200 Mg Tab) 400 mg PO BID JOSE Dextrose/Water (50% Dextrose In Water 50 Ml Syringe) 50 ml IV ASDIRECTED PRN PRN Reason: Hypoglycemia Glucagon (Glucagon,Human Recombinant 1 Mg Vial) 1 mg IM ASDIRECTED PRN PRN Reason: Hypoglycemia Insulin Aspart (Insulin Aspart 100 Units/Ml 3 Ml Pen) 0 unit SUBCUT TIDAC JOSE; Protocol Metoprolol Succinate (Metoprolol Succinate 100 Mg Tab.Er) 100 mg PO DAILY [facility] Non-Formulary Medication (Lisinopril) 20 mg PO BID JOSE Non-Formulary Medication (Rivaroxaban [Xarelto]) 20 mg PO DAILY JOSE Risperidone (Risperidone 1 Mg Tab) 0.25 mg PO BEDTIME JOSE Sertraline HCl (Sertraline 50 Mg Tab) 150 mg PO DAILY [facility] Assessment/Plan Comment:: 60 yo male admitted for UTI. We will treat with Rocephin. Cultures are ordered. Will hold home medication of lasix.
[2020-11-05] MEDS ORDERED: cefTRIAXone 1 GM in Premix Bag 1 BAG IV ONE (11:53)
[2020-11-05] MEDS ORDERED: cefTRIAXone 1 GM in Sodium Chloride 0.9% 50 ML IV SCH (12:00)
[2020-11-05] MEDS ORDERED: Ondansetron 4 MG/2 ML SDV IVPUSH PRN (14:39)
[2020-11-05] MEDS: Acetaminophen 325 MG Tab PO PRN (14:57)
[2020-11-05] MEDS: Pantoprazole 40 MG in Sodium Chloride 0.9% 10 ML IV SCH (14:58)
[2020-11-05] MEDS ORDERED: Sodium Chloride 0.9% 2.5 ML Syringe FLUSH PRN (15:19)
[2020-11-05] MEDS: Insulin Aspart 100 Units/ML 3 ML Pen SUBCUT SCH (17:06)
[2020-11-05] MEDS: Rivaroxaban 10 MG Tab PO SCH (17:07)
[2020-11-06] MEDS ORDERED: Diltiazem 25 MG/5 ML SDV IVPUSH ONE ×3 (01:40→06:41)
[2020-11-06] MEDS ORDERED: Diltiazem 25 MG/5 ML SDV ONE ×3 (01:54→06:44)
[2020-11-06] MEDS ORDERED: Diltiazem 100 MG in Sodium Chloride 0.9% 100 ML IV SCH (03:45)
[2020-11-06] MEDS ORDERED: Digoxin 500 MCG/2 ML Amp IVPUSH ONE (04:42)
[2020-11-06] MEDS ORDERED: Metoprolol Tartrate 50 MG Tab PO SCH (04:45)
--- NOTE | 2020-11-06 04:47 | PCM.PN ---
- General Info Date of Service: 11/06/20 - Review of Systems Systems Review Comment:: feeling better, side pain resolved, no chest pain, no palpitations, no shortness of breath, did convert to a.fib with RVR while going to bathroom this morning - Patient Data Vitals - Most Recent: Last Vital Signs Temp 36.8 C 11/05/20 17:06 Pulse 87 11/05/20 17:06 Resp 18 11/05/20 17:06 BP 121/64 11/05/20 17:06 Pulse Ox 92 L 11/05/20 17:06 Weight - Most Recent: 165.7 kg I&O - Last 24 Hours: Intake & Output 11/05/20 11/05/20 11/06/20 14:59 22:59 06:59 Intake Total 920 Output Total 320 Balance 600 Lab Results Last 24 Hours: Laboratory Results - last 24 hr 11/05/20 11/05/20 11/05/20 Range/Units 09:45 09:45 09:45 WBC 16.13 H (4.0-11.0) K/uL RBC 4.24 L (4.50-5.90) M/uL Hgb 12.5 L (13.0-17.0) g/dL Hct 38.6 (38.0-50.0) % MCV 91.0 (80.0-98.0) fL MCH 29.5 (27.0-32.0) pg MCHC 32.4 (31.0-37.0) g/dL RDW Std Deviation 47.7 (28.0-62.0) fl RDW Coeff of Giovanni 14 (11.0-15.0) % Plt Count 210 (150-400) K/uL MPV 9.90 (7.40-12.00) fL Neut % (Auto) 86.3 H (48.0-80.0) % Lymph % (Auto) 4.9 L (16.0-40.0) % [place] % (Auto) 8.8 (0.0-15.0) % Eos % (Auto) 0.0 (0.0-7.0) % Baso % (Auto) 0.0 (0.0-1.5) % Neut # (Auto) 13.9 H (1.4-5.7) K/uL Lymph # (Auto) 0.8 (0.6-2.4) K/uL [place] # (Auto) 1.4 H (0.0-0.8) K/uL Eos # (Auto) 0.0 (0.0-0.7) K/uL Baso # (Auto) 0.0 (0.0-0.1) K/uL Nucleated RBC % 0.0 /100WBC Nucleated RBCs # 0 K/uL INR 1.20 APTT 35.9 H (18.6-31.3) SEC Sodium 136 (136-148) mmol/L Potassium 3.6 (3.5-5.1) mmol/L Chloride 99 (98-107) mmol/L Carbon Dioxide 26.1 (21.0-32.0) mmol/L BUN 11 (7.0-18.0) mg/dL Creatinine 1.1 (0.8-1.3) mg/dL Est Cr Clr Drug Dosing 73.20 mL/min Estimated GFR (MDRD) > 60.0 ml/min Glucose 154 H (74-106) mg/dL POC Glucose (60-110) mg/dL Calcium 8.8 (8.5-10.1) mg/dL Phosphorus 2.5 L (2.6-4.7) mg/dL Magnesium 1.7 L (1.8-2.4) mg/dL Total Bilirubin 0.5 (0.2-1.0) mg/dL AST 14 L (15-37) IU/L ALT 25 (14-63) IU/L Alkaline Phosphatase 91 (46-116) U/L Creatine Kinase 70 (26-308) U/L Troponin I < 0.050 (0.000-0.056) ng/mL Total Protein 8.1 (6.4-8.2) g/dL Albumin 3.2 L (3.4-5.0) g/dL Globulin 4.9 H (2.6-4.0) g/dL Albumin/Globulin Ratio 0.7 L (0.9-1.6) Lipase 109 (73-393) U/L Urine Color Urine Appearance Urine pH (5.0-8.0) Ur Specific [place] (1.001-1.035) Urine Protein (NEGATIVE) mg/dL Urine Glucose (UA) (NEGATIVE) mg/dL Urine Ketones (NEGATIVE) mg/dL Urine Occult Blood (NEGATIVE) Urine Nitrite (NEGATIVE) Urine Bilirubin (NEGATIVE) Urine Urobilinogen (<2.0) EU/dL Ur Leukocyte Esterase (NEGATIVE) Urine RBC (0-2/HPF) Urine WBC (0-5/HPF) Ur Epithelial Cells (NONE-FEW) Amorphous Sediment (NEGATIVE) Urine Bacteria (NEGATIVE) Urine Mucus (NONE-MOD) Influenza Type A RNA (NEGATIVE) Influenza Type B RNA (NEGATIVE) SARS-CoV-2 RNA (LEE ANN) (NEGATIVE) 11/05/20 11/05/20 11/05/20 Range/Units 10:11 11:25 16:00 WBC (4.0-11.0) K/uL RBC (4.50-5.90) M/uL Hgb (13.0-17.0) g/dL Hct (38.0-50.0) % MCV (80.0-98.0) fL MCH (27.0-32.0) pg MCHC (31.0-37.0) g/dL RDW Std Deviation (28.0-62.0) fl RDW Coeff of Giovanni (11.0-15.0) % Plt Count (150-400) K/uL MPV (7.40-12.00) fL Neut % (Auto) (48.0-80.0) % Lymph % (Auto) (16.0-40.0) % [place] % (Auto) (0.0-15.0) % Eos % (Auto) (0.0-7.0) % Baso % (Auto) (0.0-1.5) % Neut # (Auto) (1.4-5.7) K/uL Lymph # (Auto) (0.6-2.4) K/uL [place] # (Auto) (0.0-0.8) K/uL Eos # (Auto) (0.0-0.7) K/uL Baso # (Auto) (0.0-0.1) K/uL Nucleated RBC % /100WBC Nucleated RBCs # K/uL INR APTT (18.6-31.3) SEC Sodium (136-148) mmol/L Potassium (3.5-5.1) mmol/L Chloride (98-107) mmol/L Carbon Dioxide (21.0-32.0) mmol/L BUN (7.0-18.0) mg/dL Creatinine (0.8-1.3) mg/dL Est Cr Clr Drug Dosing mL/min Estimated GFR (MDRD) ml/min Glucose (74-106) mg/dL POC Glucose (60-110) mg/dL Calcium (8.5-10.1) mg/dL Phosphorus (2.6-4.7) mg/dL Magnesium (1.8-2.4) mg/dL Total Bilirubin (0.2-1.0) mg/dL AST (15-37) IU/L ALT (14-63) IU/L Alkaline Phosphatase (46-116) U/L Creatine Kinase (26-308) U/L Troponin I < 0.050 (0.000-0.056) ng/mL Total Protein (6.4-8.2) g/dL Albumin (3.4-5.0) g/dL Globulin (2.6-4.0) g/dL Albumin/Globulin Ratio (0.9-1.6) Lipase (73-393) U/L Urine Color YELLOW Urine Appearance SLT CLOUDY Urine pH 5.5 (5.0-8.0) Ur Specific [place] 1.020 (1.001-1.035) Urine Protein TRACE H (NEGATIVE) mg/dL Urine Glucose (UA) NEGATIVE (NEGATIVE) mg/dL Urine Ketones NEGATIVE (NEGATIVE) mg/dL Urine Occult Blood TRACE-INTACT H (NEGATIVE) Urine Nitrite POSITIVE H (NEGATIVE) Urine Bilirubin NEGATIVE (NEGATIVE) Urine Urobilinogen 0.2 (<2.0) EU/dL Ur Leukocyte Esterase MODERATE H (NEGATIVE) Urine RBC 0-2 (0-2/HPF) Urine WBC 25-30 (0-5/HPF) Ur Epithelial Cells NOT SEEN (NONE-FEW) Amorphous Sediment RARE (NEGATIVE) Urine Bacteria 2+ H (NEGATIVE) Urine Mucus RARE (NONE-MOD) Influenza Type A RNA NEGATIVE (NEGATIVE) Influenza Type B RNA NEGATIVE (NEGATIVE) SARS-CoV-2 RNA (LEE ANN) NEGATIVE (NEGATIVE) 11/05/20 11/05/20 Range/Units 17:03 22:00 WBC (4.0-11.0) K/uL RBC (4.50-5.90) M/uL Hgb (13.0-17.0) g/dL Hct (38.0-50.0) % MCV (80.0-98.0) fL MCH (27.0-32.0) pg MCHC (31.0-37.0) g/dL RDW Std Deviation (28.0-62.0) fl RDW Coeff of Giovanni (11.0-15.0) % Plt Count (150-400) K/uL MPV (7.40-12.00) fL Neut % (Auto) (48.0-80.0) % Lymph % (Auto) (16.0-40.0) % [place] % (Auto) (0.0-15.0) % Eos % (Auto) (0.0-7.0) % Baso % (Auto) (0.0-1.5) % Neut # (Auto) (1.4-5.7) K/uL Lymph # (Auto) (0.6-2.4) K/uL [place] # (Auto) (0.0-0.8) K/uL Eos # (Auto) (0.0-0.7) K/uL Baso # (Auto) (0.0-0.1) K/uL Nucleated RBC % /100WBC Nucleated RBCs # K/uL INR APTT (18.6-31.3) SEC Sodium (136-148) mmol/L Potassium (3.5-5.1) mmol/L Chloride (98-107) mmol/L Carbon Dioxide (21.0-32.0) mmol/L BUN (7.0-18.0) mg/dL Creatinine (0.8-1.3) mg/dL Est Cr Clr Drug Dosing mL/min Estimated GFR (MDRD) ml/min Glucose (74-106) mg/dL POC Glucose 131 H (60-110) mg/dL Calcium (8.5-10.1) mg/dL Phosphorus (2.6-4.7) mg/dL Magnesium (1.8-2.4) mg/dL Total Bilirubin (0.2-1.0) mg/dL AST (15-37) IU/L ALT (14-63) IU/L Alkaline Phosphatase (46-116) U/L Creatine Kinase (26-308) U/L Troponin I < 0.050 (0.000-0.056) ng/mL Total Protein (6.4-8.2) g/dL Albumin (3.4-5.0) g/dL Globulin (2.6-4.0) g/dL Albumin/Globulin Ratio (0.9-1.6) Lipase (73-393) U/L Urine Color Urine Appearance Urine pH (5.0-8.0) Ur Specific [place] (1.001-1.035) Urine Protein (NEGATIVE) mg/dL Urine Glucose (UA) (NEGATIVE) mg/dL Urine Ketones (NEGATIVE) mg/dL Urine Occult Blood (NEGATIVE) Urine Nitrite (NEGATIVE) Urine Bilirubin (NEGATIVE) Urine Urobilinogen (<2.0) EU/dL Ur Leukocyte Esterase (NEGATIVE) Urine RBC (0-2/HPF) Urine WBC (0-5/HPF) Ur Epithelial Cells (NONE-FEW) Amorphous Sediment (NEGATIVE) Urine Bacteria (NEGATIVE) Urine Mucus (NONE-MOD) Influenza Type A RNA (NEGATIVE) Influenza Type B RNA (NEGATIVE) SARS-CoV-2 RNA (LEE ANN) (NEGATIVE) Med Orders - Current: Current Medications Acetaminophen (Acetaminophen 325 Mg Tab) 650 mg PO Q4H PRN PRN Reason: Pain Last Admin: 11/05/20 14:57 Dose: 650 mg Documented by: Aspirin (Aspirin 81 Mg Tab.Ec) 81 mg PO DAILY JOSE Atorvastatin Calcium (Atorvastatin 40 Mg Tab) 40 mg PO BEDTIME JOSE Carbamazepine (Carbamazepine 200 Mg Tab) 400 mg PO BID JOSE Dextrose/Water (50% Dextrose In Water 50 Ml Syringe) 50 ml IV ASDIRECTED PRN PRN Reason: Hypoglycemia Digoxin (Digoxin 500 Mcg/2 Ml Amp) 250 mcg IVPUSH ONETIME ONE Stop: 11/06/20 04:43 Glucagon (Glucagon,Human Recombinant 1 Mg Vial) 1 mg IM ASDIRECTED PRN PRN Reason: Hypoglycemia Ceftriaxone Sodium/Dextrose 1 (gm/ Premix) 50 mls @ 100 mls/hr IV Q24H [facility] Pantoprazole Sodium 40 mg/ (Sodium Chloride) 10 mls @ 300 mls/hr IV DAILY JOSE Last Admin: 11/05/20 14:58 Dose: 300 mls/hr Documented by: Diltiazem HCl 100 mg/ Sodium (Chloride) 100 mls @ 5 mls/hr IV NOW JOSE; Protocol Last Admin: 11/06/20 03:52 Dose: 5 mg/hr, 5 mls/hr Documented by: Insulin Aspart (Insulin Aspart 100 Units/Ml 3 Ml Pen) 0 unit SUBCUT TIDAC [facility]; Protocol Last Admin: 11/05/20 17:06 Dose: Not Given Documented by: Lisinopril (Lisinopril 10 Mg Tab) 20 mg PO BID [facility] Metoprolol Tartrate (Metoprolol Tartrate 50 Mg Tab) 75 mg PO Q12H [facility] Ondansetron HCl (Ondansetron 4 Mg/2 Ml Sdv) 4 mg IVPUSH Q4H PRN PRN Reason: Nausea Last Admin: 11/05/20 14:58 Dose: 4 mg Documented by: Risperidone (Risperidone 0.25 Mg Tab) 0.25 mg PO BEDTIME [facility] Rivaroxaban (Rivaroxaban 10 Mg Tab) 20 mg PO WITHDINNER [facility] Last Admin: 11/05/20 17:07 Dose: 20 mg Documented by: Sertraline HCl (Sertraline 50 Mg Tab) 150 mg PO DAILY [facility] Sodium Chloride (Sodium Chloride 0.9% 2.5 Ml Syringe) 2.5 ml FLUSH ASDIRECTED PRN PRN Reason: SL patency Discontinued Medications Diltiazem HCl (Diltiazem 25 Mg/5 Ml Sdv) Confirm Administered Dose 25 mg .ROUTE .STK-MED ONE Stop: 11/06/20 01:55 Last Admin: 11/06/20 03:44 Dose: Not Given Documented by: Diltiazem HCl (Diltiazem 25 Mg/5 Ml Sdv) Confirm Administered Dose 25 mg .ROUTE .STK-MED ONE Stop: 11/06/20 02:17 Last Admin: 11/06/20 03:44 Dose: Not Given Documented by: Diltiazem HCl (Diltiazem 25 Mg/5 Ml Sdv) 10 mg IVPUSH ONETIME ONE Stop: 11/06/20 02:21 Diltiazem HCl (Diltiazem 25 Mg/5 Ml Sdv) 10 mg IVPUSH ONETIME ONE Stop: 11/06/20 01:41 Ceftriaxone Sodium/Dextrose 1 (gm/ Premix) 50 mls @ 100 mls/hr IV ONETIME ONE Stop: 11/05/20 12:22 Last Admin: 11/05/20 12:08 Dose: 100 mls/hr Documented by: Metoprolol Succinate (Metoprolol Succinate 100 Mg Tab.Er) 100 mg PO DAILY JOSE - Exam General: Alert, Oriented Neck: Supple Lungs: Clear to Auscultation, Normal Respiratory Effort Cardiovascular: Irregular Rhythm, Tachycardia GI/Abdominal Exam: Soft, Non-Tender, No Distention Extremities: Non-Tender, No Pedal Edema Skin: Warm, Dry, Intact - Patient Data Lab Results Last 24 hrs: Laboratory Results - last 24 hr 11/05/20 11/05/20 11/05/20 Range/Units 09:45 09:45 09:45 WBC 16.13 H (4.0-11.0) K/uL RBC 4.24 L (4.50-5.90) M/uL Hgb 12.5 L (13.0-17.0) g/dL Hct 38.6 (38.0-50.0) % MCV 91.0 (80.0-98.0) fL MCH 29.5 (27.0-32.0) pg MCHC 32.4 (31.0-37.0) g/dL RDW Std Deviation 47.7 (28.0-62.0) fl RDW Coeff of Giovanni 14 (11.0-15.0) % Plt Count 210 (150-400) K/uL MPV 9.90 (7.40-12.00) fL Neut % (Auto) 86.3 H (48.0-80.0) % Lymph % (Auto) 4.9 L (16.0-40.0) % [place] % (Auto) 8.8 (0.0-15.0) % Eos % (Auto) 0.0 (0.0-7.0) % Baso % (Auto) 0.0 (0.0-1.5) % Neut # (Auto) 13.9 H (1.4-5.7) K/uL Lymph # (Auto) 0.8 (0.6-2.4) K/uL [place] # (Auto) 1.4 H (0.0-0.8) K/uL Eos # (Auto) 0.0 (0.0-0.7) K/uL Baso # (Auto) 0.0 (0.0-0.1) K/uL Nucleated RBC % 0.0 /100WBC Nucleated RBCs # 0 K/uL INR 1.20 APTT 35.9 H (18.6-31.3) SEC Sodium 136 (136-148) mmol/L Potassium 3.6 (3.5-5.1) mmol/L Chloride 99 (98-107) mmol/L Carbon Dioxide 26.1 (21.0-32.0) mmol/L BUN 11 (7.0-18.0) mg/dL Creatinine 1.1 (0.8-1.3) mg/dL Est Cr Clr Drug Dosing 73.20 mL/min Estimated GFR (MDRD) > 60.0 ml/min Glucose 154 H (74-106) mg/dL POC Glucose (60-110) mg/dL Calcium 8.8 (8.5-10.1) mg/dL Phosphorus 2.5 L (2.6-4.7) mg/dL Magnesium 1.7 L (1.8-2.4) mg/dL Total Bilirubin 0.5 (0.2-1.0) mg/dL AST 14 L (15-37) IU/L ALT 25 (14-63) IU/L Alkaline Phosphatase 91 (46-116) U/L Creatine Kinase 70 (26-308) U/L Troponin I < 0.050 (0.000-0.056) ng/mL Total Protein 8.1 (6.4-8.2) g/dL Albumin 3.2 L (3.4-5.0) g/dL Globulin 4.9 H (2.6-4.0) g/dL Albumin/Globulin Ratio 0.7 L (0.9-1.6) Lipase 109 (73-393) U/L Urine Color Urine Appearance Urine pH (5.0-8.0) Ur Specific [place] (1.001-1.035) Urine Protein (NEGATIVE) mg/dL Urine Glucose (UA) (NEGATIVE) mg/dL Urine Ketones (NEGATIVE) mg/dL Urine Occult Blood (NEGATIVE) Urine Nitrite (NEGATIVE) Urine Bilirubin (NEGATIVE) Urine Urobilinogen (<2.0) EU/dL Ur Leukocyte Esterase (NEGATIVE) Urine RBC (0-2/HPF) Urine WBC (0-5/HPF) Ur Epithelial Cells (NONE-FEW) Amorphous Sediment (NEGATIVE) Urine Bacteria (NEGATIVE) Urine Mucus (NONE-MOD) Influenza Type A RNA (NEGATIVE) Influenza Type B RNA (NEGATIVE) SARS-CoV-2 RNA (LEE ANN) (NEGATIVE) 11/05/20 11/05/20 11/05/20 Range/Units 10:11 11:25 16:00 WBC (4.0-11.0) K/uL RBC (4.50-5.90) M/uL Hgb (13.0-17.0) g/dL Hct (38.0-50.0) % MCV (80.0-98.0) fL MCH (27.0-32.0) pg MCHC (31.0-37.0) g/dL RDW Std Deviation (28.0-62.0) fl RDW Coeff of Giovanni (11.0-15.0) % Plt Count (150-400) K/uL MPV (7.40-12.00) fL Neut % (Auto) (48.0-80.0) % Lymph % (Auto) (16.0-40.0) % [place] % (Auto) (0.0-15.0) % Eos % (Auto) (0.0-7.0) % Baso % (Auto) (0.0-1.5) % Neut # (Auto) (1.4-5.7) K/uL Lymph # (Auto) (0.6-2.4) K/uL [place] # (Auto) (0.0-0.8) K/uL Eos # (Auto) (0.0-0.7) K/uL Baso # (Auto) (0.0-0.1) K/uL Nucleated RBC % /100WBC Nucleated RBCs # K/uL INR APTT (18.6-31.3) SEC Sodium (136-148) mmol/L Potassium (3.5-5.1) mmol/L Chloride (98-107) mmol/L Carbon Dioxide (21.0-32.0) mmol/L BUN (7.0-18.0) mg/dL Creatinine (0.8-1.3) mg/dL Est Cr Clr Drug Dosing mL/min Estimated GFR (MDRD) ml/min Glucose (74-106) mg/dL POC Glucose (60-110) mg/dL Calcium (8.5-10.1) mg/dL Phosphorus (2.6-4.7) mg/dL Magnesium (1.8-2.4) mg/dL Total Bilirubin (0.2-1.0) mg/dL AST (15-37) IU/L ALT (14-63) IU/L Alkaline Phosphatase (46-116) U/L Creatine Kinase (26-308) U/L Troponin I < 0.050 (0.000-0.056) ng/mL Total Protein (6.4-8.2) g/dL Albumin (3.4-5.0) g/dL Globulin (2.6-4.0) g/dL Albumin/Globulin Ratio (0.9-1.6) Lipase (73-393) U/L Urine Color YELLOW Urine Appearance SLT CLOUDY Urine pH 5.5 (5.0-8.0) Ur Specific [place] 1.020 (1.001-1.035) Urine Protein TRACE H (NEGATIVE) mg/dL Urine Glucose (UA) NEGATIVE (NEGATIVE) mg/dL Urine Ketones NEGATIVE (NEGATIVE) mg/dL Urine Occult Blood TRACE-INTACT H (NEGATIVE) Urine Nitrite POSITIVE H (NEGATIVE) Urine Bilirubin NEGATIVE (NEGATIVE) Urine Urobilinogen 0.2 (<2.0) EU/dL Ur Leukocyte Esterase MODERATE H (NEGATIVE) Urine RBC 0-2 (0-2/HPF) Urine WBC 25-30 (0-5/HPF) Ur Epithelial Cells NOT SEEN (NONE-FEW) Amorphous Sediment RARE (NEGATIVE) Urine Bacteria 2+ H (NEGATIVE) Urine Mucus RARE (NONE-MOD) Influenza Type A RNA NEGATIVE (NEGATIVE) Influenza Type B RNA NEGATIVE (NEGATIVE) SARS-CoV-2 RNA (LEEA NN) NEGATIVE (NEGATIVE) 11/05/20 11/05/20 Range/Units 17:03 22:00 WBC (4.0-11.0) K/uL RBC (4.50-5.90) M/uL Hgb (13.0-17.0) g/dL Hct (38.0-50.0) % MCV (80.0-98.0) fL MCH (27.0-32.0) pg MCHC (31.0-37.0) g/dL RDW Std Deviation (28.0-62.0) fl RDW Coeff of Giovanni (11.0-15.0) % Plt Count (150-400) K/uL MPV (7.40-12.00) fL Neut % (Auto) (48.0-80.0) % Lymph % (Auto) (16.0-40.0) % [place] % (Auto) (0.0-15.0) % Eos % (Auto) (0.0-7.0) % Baso % (Auto) (0.0-1.5) % Neut # (Auto) (1.4-5.7) K/uL Lymph # (Auto) (0.6-2.4) K/uL [place] # (Auto) (0.0-0.8) K/uL Eos # (Auto) (0.0-0.7) K/uL Baso # (Auto) (0.0-0.1) K/uL Nucleated RBC % /100WBC Nucleated RBCs # K/uL INR APTT (18.6-31.3) SEC Sodium (136-148) mmol/L Potassium (3.5-5.1) mmol/L Chloride (98-107) mmol/L Carbon Dioxide (21.0-32.0) mmol/L BUN (7.0-18.0) mg/dL Creatinine (0.8-1.3) mg/dL Est Cr Clr Drug Dosing mL/min Estimated GFR (MDRD) ml/min Glucose (74-106) mg/dL POC Glucose 131 H (60-110) mg/dL Calcium (8.5-10.1) mg/dL Phosphorus (2.6-4.7) mg/dL Magnesium (1.8-2.4) mg/dL Total Bilirubin (0.2-1.0) mg/dL AST (15-37) IU/L ALT (14-63) IU/L Alkaline Phosphatase (46-116) U/L Creatine Kinase (26-308) U/L Troponin I < 0.050 (0.000-0.056) ng/mL Total Protein (6.4-8.2) g/dL Albumin (3.4-5.0) g/dL Globulin (2.6-4.0) g/dL Albumin/Globulin Ratio (0.9-1.6) Lipase (73-393) U/L Urine Color Urine Appearance Urine pH (5.0-8.0) Ur Specific [place] (1.001-1.035) Urine Protein (NEGATIVE) mg/dL Urine Glucose (UA) (NEGATIVE) mg/dL Urine Ketones (NEGATIVE) mg/dL Urine Occult Blood (NEGATIVE) Urine Nitrite (NEGATIVE) Urine Bilirubin (NEGATIVE) Urine Urobilinogen (<2.0) EU/dL Ur Leukocyte Esterase (NEGATIVE) Urine RBC (0-2/HPF) Urine WBC (0-5/HPF) Ur Epithelial Cells (NONE-FEW) Amorphous Sediment (NEGATIVE) Urine Bacteria (NEGATIVE) Urine Mucus (NONE-MOD) Influenza Type A RNA (NEGATIVE) Influenza Type B RNA (NEGATIVE) SARS-CoV-2 RNA (LEE ANN) (NEGATIVE) Result Diagrams: 11/05/20 09:45 11/05/20 09:45 Sepsis Event Note - Evaluation Sepsis Screening Result: No Definite Risk - Focused Exam Vital Signs: Vital Signs Temp Pulse Resp BP Pulse Ox 11/05/20 17:06 36.8 C 87 18 121/64 92 L - Problem List Review Problem List Initiated/Reviewed/Updated: Yes - My Orders Last 24 Hours: My Active Orders 11/05/20 Breakfast [employer] Diet [DIET] 11/05/20 11:25 CULTURE URINE [RM] Routine 11/05/20 11:40 Blood Glucose Check, Bedside [RC] TIDAC Dextrose 50% in Water 50 ml IV ASDIRECTED PRN Glucagon,Human Recombinant [GlucaGen] 1 mg IM ASDIRECTED PRN 11/05/20 11:51 Blood Culture x2 Reflex Set [OM.PC] Stat 11/05/20 11:55 Oxygen Therapy [RC] PRN Up ad Lucrecia [RC] ASDIRECTED VTE/DVT Education [RC] PER UNIT ROUTINE Vital Signs [RC] Q4H Sequential Compression Device [OM.PC] Per Unit Routine Resuscitation Status Routine 11/05/20 11:56 Antiembolic Devices [RC] PER UNIT ROUTINE 11/05/20 12:03 CULTURE BLOOD [BC] Stat 11/05/20 12:08 CULTURE BLOOD [BC] Stat 11/05/20 12:45 Telemetry Monitoring [Cardiac Monitoring] [RC] Q8H 11/05/20 14:39 Acetaminophen [TylenoL] 650 mg PO Q4H PRN Ondansetron [Zofran] 4 mg IVPUSH Q4H PRN 11/05/20 14:45 Pantoprazole [ProTONIX IV] 40 mg Sodium Chloride 0.9% [Normal Saline] 10 ml IV DAILY 11/05/20 15:19 Sodium Chloride 0.9% [Saline Flush] 2.5 ml FLUSH ASDIRECTED PRN 11/05/20 17:00 Insulin Aspart [NovoLOG] See Protocol SUBCUT TIDAC 11/05/20 17:30 Rivaroxaban [Xarelto] 20 mg PO WITHDINNER 11/05/20 21:00 atorvaSTATin [Lipitor] 40 mg PO BEDTIME carBAMazepine [TEGretol Tab] 400 mg PO BID lisinopriL [Prinivil] 20 mg PO BID risperiDONE [RisperiDAL] 0.25 mg PO BEDTIME 11/06/20 01:30 EKG 12 Lead [EKG Documentation Completion] [RC] STAT 11/06/20 03:42 Transfer Patient (Change bed) [ADT] Routine 11/06/20 03:45 Diltiazem [Cardizem] 100 mg Sodium Chloride 0.9% [Normal Saline] 100 ml IV NOW 11/06/20 04:42 Digoxin [Lanoxin] 250 mcg IVPUSH ONETIME ONE 11/06/20 04:43 BMP [BASIC METABOLIC PANEL,BMP] [CHEM] Routine MAGNESIUM [CHEM] Routine 11/06/20 04:45 Metoprolol Tartrate [Lopressor] 75 mg PO Q12H 11/06/20 05:11 BASIC METABOLIC PANEL,BMP [CHEM] AM CBC WITH AUTO DIFF [HEME] AM 11/06/20 09:00 Aspirin [Halfprin] 81 mg PO DAILY Sertraline [Zoloft] 150 mg PO DAILY 11/06/20 12:00 cefTRIAXone [Rocephin in Dextrose,Iso-Osm 1 GM/50 ML] 1 gm Premix Bag 1 bag IV Q24H - Plan Plan:: 60 yo male admitted for UTI. UTI: continue Rocephin, cultures pending A.fib with RVR: HR in 120s-150s, have started Diltiazem drip and transferred to ICU, Will increase oral metoprolol dose and check electrolytes.
[2020-11-06 05:14] LABS: BLOOD UREA NITROGEN,BUN 12 mg/dL (7.0-18.0); CARBON DIOXIDE,CO2 27.7 mmol/L (21.0-32.0); CHLORIDE,CL 98 mmol/L (98-107); GLUCOSE RANDOM 124 mg/dL (74-106); POTASSIUM,K 3.7 mmol/L (3.5-5.1); SODIUM,NA 132 mmol/L (136-148)
--- NOTE | 2020-11-06 06:57 | PN ---
THC Physician - Brief Progress [id number]/22/2021 06:51[facility] Vick Swathi modi, JEF - MWN ([place]) - [facility]ENTERBIPIN MARESDate of Service 11/06/2020 06:51HPI/Renetta nts of Note Case discussed with RN. 60 year old M with previous VTE on xaralto, admitted with UTI, t ransferred from medical floor with afib RVR. Treated with cardizem drip/digoxin for HR control.Recs include: hemodynamic monitoring, wean cardizem to HR < 100, continues on xaralto for AC, consider car gabe eval and echo when available, supplemental O2 PRN, GI and DVT prophylaxis, abx, follow cultures, trend LA, replace lytes as needed, trend Cr, glycemic monitoring, pain control, neuro checks.Interven tions Minor-Communication with other healthcare providers and/or family
[2020-11-06] MEDS ORDERED: Metoprolol Succinate 100 MG Tab.ER PO SCH (09:00)
[2020-11-06] MEDS: Pantoprazole 40 MG in Sodium Chloride 0.9% 10 ML IV SCH (09:03)
[2020-11-06] MEDS: Sertraline 50 MG Tab PO SCH (09:06)
[2020-11-06] MEDS: Aspirin 81 MG Tab.EC PO SCH (09:08)
[2020-11-06] MEDS: carBAMazepine 200 MG Tab PO SCH ×3 (09:09→20:18)
[2020-11-06] MEDS: Insulin Aspart 100 Units/ML 3 ML Pen SUBCUT SCH ×3 (09:10→18:56)
[2020-11-06] MEDS: Lisinopril 10 MG Tab PO SCH ×3 (09:31→20:19)
[2020-11-06] MEDS ORDERED: Metoprolol Tartrate 25 MG Tab PO ONE (09:37)
[2020-11-06] MEDS ORDERED: Potassium Chloride 20 MEQ Tab.ER PO ONE (11:50)
[2020-11-06] MEDS ORDERED: Magnesium Sulfate/Water 2 GM/50 ML BAG IV ONE (11:51)
[2020-11-06] MEDS: cefTRIAXone 1 GM in Premix Bag 1 BAG IV SCH (14:29)
--- NOTE | 2020-11-06 16:00 | PCM.PN ---
- General Info Date of Service: 11/06/20 Subjective Update: Patient transferred to the ICU overnight for Cardizem drip due to A. fib RVR. This morning patient denies chest pain, shortness of breath, fever, chills, nausea, vomiting abdominal pain. No concerns per nursing staff overnight. - Review of Systems General: Denies: Fever, Chills Pulmonary: Denies: Shortness of Breath Cardiovascular: Denies: Chest Pain, Lightheadedness Gastrointestinal: Denies: Abdominal Pain, Nausea, Vomiting Neurological: Denies: Confusion Psychiatric: Denies: Confusion - Patient Data Vitals - Most Recent: Last Vital Signs Temp 97.3 F 11/06/20 12:00 Pulse 82 11/06/20 10:10 Resp 20 11/06/20 15:00 BP 127/65 11/06/20 15:00 Pulse Ox 94 L 11/06/20 15:00 Weight - Most Recent: 365 lb 4.895 oz I&O - Last 24 Hours: Intake & Output 11/06/20 11/06/20 11/06/20 06:59 14:59 22:59 Intake Total 440 Output Total 320 Balance 120 Lab Results Last 24 Hours: Laboratory Results - last 24 hr 11/05/20 11/05/20 11/05/20 Range/Units 16:00 17:03 22:00 WBC (4.0-11.0) K/uL RBC (4.50-5.90) M/uL Hgb (13.0-17.0) g/dL Hct (38.0-50.0) % MCV (80.0-98.0) fL MCH (27.0-32.0) pg MCHC (31.0-37.0) g/dL RDW Std Deviation (28.0-62.0) fl RDW Coeff of Giovanni (11.0-15.0) % Plt Count (150-400) K/uL MPV (7.40-12.00) fL Neut % (Auto) (48.0-80.0) % Lymph % (Auto) (16.0-40.0) % George % (Auto) (0.0-15.0) % Eos % (Auto) (0.0-7.0) % Baso % (Auto) (0.0-1.5) % Neut # (Auto) (1.4-5.7) K/uL Lymph # (Auto) (0.6-2.4) K/uL George # (Auto) (0.0-0.8) K/uL Eos # (Auto) (0.0-0.7) K/uL Baso # (Auto) (0.0-0.1) K/uL Nucleated RBC % /100WBC Nucleated RBCs # K/uL Lactate (0.20-2.00) mmol/L Sodium (136-148) mmol/L Potassium (3.5-5.1) mmol/L Chloride (98-107) mmol/L Carbon Dioxide (21.0-32.0) mmol/L BUN (7.0-18.0) mg/dL Creatinine (0.8-1.3) mg/dL Est Cr Clr Drug Dosing mL/min Estimated GFR (MDRD) ml/min Glucose (74-106) mg/dL POC Glucose 131 H (60-110) mg/dL Calcium (8.5-10.1) mg/dL Magnesium (1.8-2.4) mg/dL Troponin I < 0.050 < 0.050 (0.000-0.056) ng/mL 11/06/20 11/06/20 11/06/20 Range/Units 04:58 04:58 04:58 WBC 11.20 H (4.0-11.0) K/uL RBC 3.76 L (4.50-5.90) M/uL Hgb 11.1 L (13.0-17.0) g/dL Hct 34.5 L (38.0-50.0) % MCV 91.8 (80.0-98.0) fL MCH 29.5 (27.0-32.0) pg MCHC 32.2 (31.0-37.0) g/dL RDW Std Deviation 48.0 (28.0-62.0) fl RDW Coeff of Giovanni 14 (11.0-15.0) % Plt Count 167 (150-400) K/uL MPV 9.80 (7.40-12.00) fL Neut % (Auto) 83.8 H (48.0-80.0) % Lymph % (Auto) 8.1 L (16.0-40.0) % George % (Auto) 7.8 (0.0-15.0) % Eos % (Auto) 0.1 (0.0-7.0) % Baso % (Auto) 0.2 (0.0-1.5) % Neut # (Auto) 9.4 H (1.4-5.7) K/uL Lymph # (Auto) 0.9 (0.6-2.4) K/uL George # (Auto) 0.9 H (0.0-0.8) K/uL Eos # (Auto) 0.0 (0.0-0.7) K/uL Baso # (Auto) 0.0 (0.0-0.1) K/uL Nucleated RBC % 0.0 /100WBC Nucleated RBCs # 0 K/uL Lactate 0.7 (0.20-2.00) mmol/L Sodium 132 L (136-148) mmol/L Potassium 3.7 (3.5-5.1) mmol/L Chloride 98 (98-107) mmol/L Carbon Dioxide 27.7 (21.0-32.0) mmol/L BUN 12 (7.0-18.0) mg/dL Creatinine 0.9 (0.8-1.3) mg/dL Est Cr Clr Drug Dosing 89.47 mL/min Estimated GFR (MDRD) > 60.0 ml/min Glucose 124 H (74-106) mg/dL POC Glucose (60-110) mg/dL Calcium 8.4 L (8.5-10.1) mg/dL Magnesium 1.8 (1.8-2.4) mg/dL Troponin I (0.000-0.056) ng/mL 11/06/20 11/06/20 Range/Units 08:23 12:45 WBC (4.0-11.0) K/uL RBC (4.50-5.90) M/uL Hgb (13.0-17.0) g/dL Hct (38.0-50.0) % MCV (80.0-98.0) fL MCH (27.0-32.0) pg MCHC (31.0-37.0) g/dL RDW Std Deviation (28.0-62.0) fl RDW Coeff of Giovanni (11.0-15.0) % Plt Count (150-400) K/uL MPV (7.40-12.00) fL Neut % (Auto) (48.0-80.0) % Lymph % (Auto) (16.0-40.0) % George % (Auto) (0.0-15.0) % Eos % (Auto) (0.0-7.0) % Baso % (Auto) (0.0-1.5) % Neut # (Auto) (1.4-5.7) K/uL Lymph # (Auto) (0.6-2.4) K/uL George # (Auto) (0.0-0.8) K/uL Eos # (Auto) (0.0-0.7) K/uL Baso # (Auto) (0.0-0.1) K/uL Nucleated RBC % /100WBC Nucleated RBCs # K/uL Lactate (0.20-2.00) mmol/L Sodium (136-148) mmol/L Potassium (3.5-5.1) mmol/L Chloride (98-107) mmol/L Carbon Dioxide (21.0-32.0) mmol/L BUN (7.0-18.0) mg/dL Creatinine (0.8-1.3) mg/dL Est Cr Clr Drug Dosing mL/min Estimated GFR (MDRD) ml/min Glucose (74-106) mg/dL POC Glucose 114 H 121 H (60-110) mg/dL Calcium (8.5-10.1) mg/dL Magnesium (1.8-2.4) mg/dL Troponin I (0.000-0.056) ng/mL Alberto Results Last 24 Hours: Microbiology 11/05/20 12:03 Aerobic Blood Culture - Preliminary Blood - Arm, Right NO GROWTH AFTER 1 DAY Anaerobic Blood Culture - Preliminary NO GROWTH AFTER 1 DAY 11/05/20 12:08 Aerobic Blood Culture - Preliminary Blood - Arm, Left NO GROWTH AFTER 1 DAY Anaerobic Blood Culture - Preliminary NO GROWTH AFTER 1 DAY Med Orders - Current: Current Medications Acetaminophen (Acetaminophen 325 Mg Tab) 650 mg PO Q4H PRN PRN Reason: Pain Last Admin: 11/05/20 14:57 Dose: 650 mg Documented by: Aspirin (Aspirin 81 Mg Tab.Ec) 81 mg PO DAILY JOSE Last Admin: 11/06/20 09:08 Dose: 81 mg Documented by: Atorvastatin Calcium (Atorvastatin 40 Mg Tab) 40 mg PO BEDTIME JOSE Carbamazepine (Carbamazepine 200 Mg Tab) 400 mg PO BID [facility] Last Admin: 11/06/20 09:09 Dose: 400 mg Documented by: Dextrose/Water (50% Dextrose In Water 50 Ml Syringe) 50 ml IV ASDIRECTED PRN PRN Reason: Hypoglycemia Glucagon (Glucagon,Human Recombinant 1 Mg Vial) 1 mg IM ASDIRECTED PRN PRN Reason: Hypoglycemia Ceftriaxone Sodium/Dextrose 1 (gm/ Premix) 50 mls @ 100 mls/hr IV Q24H [facility] Last Admin: 11/06/20 14:29 Dose: 100 mls/hr Documented by: Pantoprazole Sodium 40 mg/ (Sodium Chloride) 10 mls @ 300 mls/hr IV DAILY [facility] Last Admin: 11/06/20 09:03 Dose: 300 mls/hr Documented by: Diltiazem HCl 100 mg/ Sodium (Chloride) 100 mls @ 5 mls/hr IV NOW [facility]; Protocol Last Titration: 11/06/20 10:10 Dose: 5 mg/hr, 5 mls/hr Documented by: Insulin Aspart (Insulin Aspart 100 Units/Ml 3 Ml Pen) 0 unit SUBCUT TIDAC [facility]; Protocol Last Admin: 11/06/20 09:10 Dose: Not Given Documented by: Lisinopril (Lisinopril 10 Mg Tab) 20 mg PO BID [facility] Last Admin: 11/06/20 09:31 Dose: 20 mg Documented by: Metoprolol Tartrate (Metoprolol Tartrate 50 Mg Tab) 100 mg PO Q12H [facility] Ondansetron HCl (Ondansetron 4 Mg/2 Ml Sdv) 4 mg IVPUSH Q4H PRN PRN Reason: Nausea Last Admin: 11/05/20 14:58 Dose: 4 mg Documented by: Risperidone (Risperidone 0.25 Mg Tab) 0.25 mg PO BEDTIME [facility] Rivaroxaban (Rivaroxaban 10 Mg Tab) 20 mg PO WITHDINNER [facility] Last Admin: 11/05/20 17:07 Dose: 20 mg Documented by: Sertraline HCl (Sertraline 50 Mg Tab) 150 mg PO DAILY [facility] Last Admin: 11/06/20 09:06 Dose: 150 mg Documented by: Sodium Chloride (Sodium Chloride 0.9% 2.5 Ml Syringe) 2.5 ml FLUSH ASDIRECTED PRN PRN Reason: SL patency Discontinued Medications Digoxin (Digoxin 500 Mcg/2 Ml Amp) 250 mcg IVPUSH ONETIME ONE Stop: 11/06/20 04:43 Last Admin: 11/06/20 06:00 Dose: 250 mcg Documented by: Diltiazem HCl (Diltiazem 25 Mg/5 Ml Sdv) Confirm Administered Dose 25 mg .ROUTE .STK-MED ONE Stop: 11/06/20 01:55 Last Admin: 11/06/20 03:44 Dose: Not Given Documented by: Diltiazem HCl (Diltiazem 25 Mg/5 Ml Sdv) Confirm Administered Dose 25 mg .ROUTE .STK-MED ONE Stop: 11/06/20 02:17 Last Admin: 11/06/20 03:44 Dose: Not Given Documented by: Diltiazem HCl (Diltiazem 25 Mg/5 Ml Sdv) 10 mg IVPUSH ONETIME ONE Stop: 11/06/20 02:21 Diltiazem HCl (Diltiazem 25 Mg/5 Ml Sdv) 10 mg IVPUSH ONETIME ONE Stop: 11/06/20 01:41 Diltiazem HCl (Diltiazem 25 Mg/5 Ml Sdv) 5 mg IVPUSH ONETIME ONE Stop: 11/06/20 06:42 Last Admin: 11/06/20 06:41 Dose: 5 mg Documented by: Diltiazem HCl (Diltiazem 25 Mg/5 Ml Sdv) Confirm Administered Dose 25 mg .ROUTE .STK-MED ONE Stop: 11/06/20 06:45 Ceftriaxone Sodium/Dextrose 1 (gm/ Premix) 50 mls @ 100 mls/hr IV ONETIME ONE Stop: 11/05/20 12:22 Last Admin: 11/05/20 12:08 Dose: 100 mls/hr Documented by: Magnesium Sulfate (Magnesium Sulfate In Water 2 Gm/50 Ml) 2 gm in 50 mls @ 50 mls/hr IV ONETIME ONE Stop: 11/06/20 12:50 Last Admin: 11/06/20 12:36 Dose: 50 mls/hr Documented by: Metoprolol Succinate (Metoprolol Succinate 100 Mg Tab.Er) 100 mg PO DAILY JOSE Metoprolol Tartrate (Metoprolol Tartrate 50 Mg Tab) 75 mg PO Q12H JOSE Last Admin: 11/06/20 06:01 Dose: 75 mg Documented by: Metoprolol Tartrate (Metoprolol Tartrate 25 Mg Tab) 25 mg PO ONETIME ONE Stop: 11/06/20 09:38 Last Admin: 11/06/20 10:10 Dose: 25 mg Documented by: Potassium Chloride (Potassium Chloride 20 Meq Tab.Er) 40 meq PO ONETIME ONE Stop: 11/06/20 11:51 Last Admin: 11/06/20 12:35 Dose: 40 meq Documented by: - Exam General: Alert, Oriented Neck: Supple Lungs: Clear to Auscultation, Normal Respiratory Effort Cardiovascular: Irregular Rhythm. No: Regular Rate (tachycardia) GI/Abdominal Exam: Normal Bowel Sounds, Soft, Non-Tender Extremities: No Pedal Edema Psy/Mental Status: Alert - Patient Data Lab Results Last 24 hrs: Laboratory Results - last 24 hr 11/05/20 11/05/20 11/05/20 Range/Units 16:00 17:03 22:00 WBC (4.0-11.0) K/uL RBC (4.50-5.90) M/uL Hgb (13.0-17.0) g/dL Hct (38.0-50.0) % MCV (80.0-98.0) fL MCH (27.0-32.0) pg MCHC (31.0-37.0) g/dL RDW Std Deviation (28.0-62.0) fl RDW Coeff of Giovanni (11.0-15.0) % Plt Count (150-400) K/uL MPV (7.40-12.00) fL Neut % (Auto) (48.0-80.0) % Lymph % (Auto) (16.0-40.0) % George % (Auto) (0.0-15.0) % Eos % (Auto) (0.0-7.0) % Baso % (Auto) (0.0-1.5) % Neut # (Auto) (1.4-5.7) K/uL Lymph # (Auto) (0.6-2.4) K/uL George # (Auto) (0.0-0.8) K/uL Eos # (Auto) (0.0-0.7) K/uL Baso # (Auto) (0.0-0.1) K/uL Nucleated RBC % /100WBC Nucleated RBCs # K/uL Lactate (0.20-2.00) mmol/L Sodium (136-148) mmol/L Potassium (3.5-5.1) mmol/L Chloride (98-107) mmol/L Carbon Dioxide (21.0-32.0) mmol/L BUN (7.0-18.0) mg/dL Creatinine (0.8-1.3) mg/dL Est Cr Clr Drug Dosing mL/min Estimated GFR (MDRD) ml/min Glucose (74-106) mg/dL POC Glucose 131 H (60-110) mg/dL Calcium (8.5-10.1) mg/dL Magnesium (1.8-2.4) mg/dL Troponin I < 0.050 < 0.050 (0.000-0.056) ng/mL 11/06/20 11/06/20 11/06/20 Range/Units 04:58 04:58 04:58 WBC 11.20 H (4.0-11.0) K/uL RBC 3.76 L (4.50-5.90) M/uL Hgb 11.1 L (13.0-17.0) g/dL Hct 34.5 L (38.0-50.0) % MCV 91.8 (80.0-98.0) fL MCH 29.5 (27.0-32.0) pg MCHC 32.2 (31.0-37.0) g/dL RDW Std Deviation 48.0 (28.0-62.0) fl RDW Coeff of Giovanni 14 (11.0-15.0) % Plt Count 167 (150-400) K/uL MPV 9.80 (7.40-12.00) fL Neut % (Auto) 83.8 H (48.0-80.0) % Lymph % (Auto) 8.1 L (16.0-40.0) % George % (Auto) 7.8 (0.0-15.0) % Eos % (Auto) 0.1 (0.0-7.0) % Baso % (Auto) 0.2 (0.0-1.5) % Neut # (Auto) 9.4 H (1.4-5.7) K/uL Lymph # (Auto) 0.9 (0.6-2.4) K/uL George # (Auto) 0.9 H (0.0-0.8) K/uL Eos # (Auto) 0.0 (0.0-0.7) K/uL Baso # (Auto) 0.0 (0.0-0.1) K/uL Nucleated RBC % 0.0 /100WBC Nucleated RBCs # 0 K/uL Lactate 0.7 (0.20-2.00) mmol/L Sodium 132 L (136-148) mmol/L Potassium 3.7 (3.5-5.1) mmol/L Chloride 98 (98-107) mmol/L Carbon Dioxide 27.7 (21.0-32.0) mmol/L BUN 12 (7.0-18.0) mg/dL Creatinine 0.9 (0.8-1.3) mg/dL Est Cr Clr Drug Dosing 89.47 mL/min Estimated GFR (MDRD) > 60.0 ml/min Glucose 124 H (74-106) mg/dL POC Glucose (60-110) mg/dL Calcium 8.4 L (8.5-10.1) mg/dL Magnesium 1.8 (1.8-2.4) mg/dL Troponin I (0.000-0.056) ng/mL 11/06/20 11/06/20 Range/Units 08:23 12:45 WBC (4.0-11.0) K/uL RBC (4.50-5.90) M/uL Hgb (13.0-17.0) g/dL Hct (38.0-50.0) % MCV (80.0-98.0) fL MCH (27.0-32.0) pg MCHC (31.0-37.0) g/dL RDW Std Deviation (28.0-62.0) fl RDW Coeff of Giovanni (11.0-15.0) % Plt Count (150-400) K/uL MPV (7.40-12.00) fL Neut % (Auto) (48.0-80.0) % Lymph % (Auto) (16.0-40.0) % George % (Auto) (0.0-15.0) % Eos % (Auto) (0.0-7.0) % Baso % (Auto) (0.0-1.5) % Neut # (Auto) (1.4-5.7) K/uL Lymph # (Auto) (0.6-2.4) K/uL George # (Auto) (0.0-0.8) K/uL Eos # (Auto) (0.0-0.7) K/uL Baso # (Auto) (0.0-0.1) K/uL Nucleated RBC % /100WBC Nucleated RBCs # K/uL Lactate (0.20-2.00) mmol/L Sodium (136-148) mmol/L Potassium (3.5-5.1) mmol/L Chloride (98-107) mmol/L Carbon Dioxide (21.0-32.0) mmol/L BUN (7.0-18.0) mg/dL Creatinine (0.8-1.3) mg/dL Est Cr Clr Drug Dosing mL/min Estimated GFR (MDRD) ml/min Glucose (74-106) mg/dL POC Glucose 114 H 121 H (60-110) mg/dL Calcium (8.5-10.1) mg/dL Magnesium (1.8-2.4) mg/dL Troponin I (0.000-0.056) ng/mL Result Diagrams: 11/06/20 04:58 11/06/20 04:58 Alberto Results Last 24 hrs: Microbiology 11/05/20 12:03 Aerobic Blood Culture - Preliminary Blood - Arm, Right NO GROWTH AFTER 1 DAY Anaerobic Blood Culture - Preliminary NO GROWTH AFTER 1 DAY 11/05/20 12:08 Aerobic Blood Culture - Preliminary Blood - Arm, Left NO GROWTH AFTER 1 DAY Anaerobic Blood Culture - Preliminary NO GROWTH AFTER 1 DAY Sepsis Event Note - Evaluation Sepsis Screening Result: No Definite Risk - Focused Exam Vital Signs: Vital Signs Temp Pulse Pulse Resp BP BP Pulse Ox 11/06/20 15:00 20 127/65 94 L 11/06/20 14:00 20 123/64 92 L 11/06/20 13:40 90 L 11/06/20 13:00 15 140/68 94 L 11/06/20 12:00 97.3 F 20 137/83 94 L 11/06/20 11:00 19 121/72 90 L 11/06/20 10:10 82 110/58 L 11/06/20 10:00 19 110/58 L 92 L 11/06/20 09:31 125/71 11/06/20 09:00 18 107/63 95 11/06/20 08:00 98.6 F 12 106/62 93 L 11/06/20 07:00 130 H 22 H 137/72 92 L 11/06/20 06:01 137 H 140/70 11/06/20 06:00 137 H 133 H 19 140/70 92 L 11/06/20 05:00 97.3 F 144 H 22 H 138/71 91 L Pulse Ox 11/06/20 15:00 11/06/20 14:00 11/06/20 13:40 11/06/20 13:00 11/06/20 12:00 94 L 11/06/20 11:00 11/06/20 10:10 11/06/20 10:00 11/06/20 09:31 11/06/20 09:00 11/06/20 08:00 11/06/20 07:00 11/06/20 06:01 11/06/20 06:00 11/06/20 05:00 - Problem List & Annotations (1) Chest pain SNOMED Code(s): 61401925 Code(s): R07.9 - CHEST PAIN, UNSPECIFIED Status: Acute Current Visit: Yes (2) Urinary incontinence SNOMED Code(s): 608765764 Code(s): R32 - UNSPECIFIED URINARY INCONTINENCE Status: Acute Current Visit: Yes (3) DM type 2 (diabetes mellitus, type 2) SNOMED Code(s): 83008422 Code(s): E11.9 - TYPE 2 DIABETES MELLITUS WITHOUT COMPLICATIONS Status: Acute Current Visit: No (4) History of DVT (deep vein thrombosis) SNOMED Code(s): 578252104 Code(s): Z86.718 - PERSONAL HISTORY OF OTHER VENOUS THROMBOSIS AND EMBOLISM Status: Acute Current Visit: No (5) Hypertension SNOMED Code(s): 64924841 Code(s): I10 - ESSENTIAL (PRIMARY) HYPERTENSION Status: Acute Current Visit: No - Problem List Review Problem List Initiated/Reviewed/Updated: Yes - My Orders Last 24 Hours: My Active Orders 11/06/20 07:12 Admission Status [Patient Status] [ADT] Routine - Plan Plan:: UTI- Rocephin Q24H, Cultures pending Afib-RVR, patient started on Cardizem overnight drip at 15ml/hr. Patient went into sinus rhythm early in the afternoon and is currently on 100mg metoprolol tartrate 100mg BID. Maintain K+ at 4.0 and Mg2+ at 2. Repleted mg with 2gm mag sulfate, repleted K+ with 40meq PO. Will recheck AM labs Xarelto dvt prophylaxis
[2020-11-06] MEDS: atorvaSTATin 40 MG Tab PO SCH ×2 (17:41→20:18)
[2020-11-06] MEDS: risperiDONE 0.25 MG Tab PO SCH ×2 (17:43→20:18)
[2020-11-06] MEDS: Rivaroxaban 10 MG Tab PO SCH (18:41)
[2020-11-06] MEDS: Metoprolol Tartrate 50 MG Tab PO SCH (20:18)
[2020-11-07 06:14] LABS: BLOOD UREA NITROGEN,BUN 15 mg/dL (7.0-18.0); CARBON DIOXIDE,CO2 28.8 mmol/L (21.0-32.0); CHLORIDE,CL 101 mmol/L (98-107); GLUCOSE RANDOM 126 mg/dL (74-106); POTASSIUM,K 4.1 mmol/L (3.5-5.1); SODIUM,NA 137 mmol/L (136-148)
[2020-11-07] MEDS: Insulin Aspart 100 Units/ML 3 ML Pen SUBCUT SCH ×3 (08:46→18:47)
[2020-11-07] MEDS: Pantoprazole 40 MG in Sodium Chloride 0.9% 10 ML IV SCH (09:32)
[2020-11-07] MEDS: Sertraline 50 MG Tab PO SCH (09:33)
[2020-11-07] MEDS: carBAMazepine 200 MG Tab PO SCH ×2 (09:33→20:04)
[2020-11-07] MEDS: Aspirin 81 MG Tab.EC PO SCH (09:33)
[2020-11-07] MEDS: Lisinopril 10 MG Tab PO SCH ×2 (09:34→20:11)
[2020-11-07] MEDS: Metoprolol Tartrate 50 MG Tab PO SCH ×2 (09:34→20:05)
--- NOTE | 2020-11-07 11:36 | PCM.PN ---
- General Info Date of Service: 11/07/20 Subjective Update: Patient states dysuria mild abdominal pain. Patient denies shortness of breath, chest pain, fever, chills, nausea, vomiting. Per nursing staff no overnight con cerns. Patient has been voiding frequently without concerns of retention. - Review of Systems General: Denies: Fever, Chills Pulmonary: Denies: Cough Cardiovascular: Denies: Chest Pain Gastrointestinal: Reports: Abdominal Pain. Denies: Nausea, Vomiting Genitourinary: Reports: Dysuria Neurological: Denies: Confusion Psychiatric: Denies: Confusion - Patient Data Vitals - Most Recent: Last Vital Signs Temp 98.4 F 11/07/20 07:00 Pulse 85 11/07/20 09:34 Resp 19 11/07/20 08:00 BP 132/79 11/07/20 09:34 Pulse Ox 93 L 11/07/20 08:00 Weight - Most Recent: 370 lb I&O - Last 24 Hours: Intake & Output 11/06/20 11/07/20 11/07/20 22:59 06:59 14:59 Intake Total 680 220 Output Total 420 575 Balance 260 -355 Lab Results Last 24 Hours: Laboratory Results - last 24 hr 11/06/20 11/06/20 11/07/20 Range/Units 12:45 18:44 05:18 WBC 5.35 (4.0-11.0) K/uL RBC 3.65 L (4.50-5.90) M/uL Hgb 10.5 L (13.0-17.0) g/dL Hct 33.6 L (38.0-50.0) % MCV 92.1 (80.0-98.0) fL MCH 28.8 (27.0-32.0) pg MCHC 31.3 (31.0-37.0) g/dL RDW Std Deviation 48.9 (28.0-62.0) fl RDW Coeff of Giovanni 14 (11.0-15.0) % Plt Count 179 (150-400) K/uL MPV 10.40 (7.40-12.00) fL Neut % (Auto) 71.5 (48.0-80.0) % Lymph % (Auto) 15.3 L (16.0-40.0) % Amador % (Auto) 12.3 (0.0-15.0) % Eos % (Auto) 0.9 (0.0-7.0) % Baso % (Auto) 0.0 (0.0-1.5) % Neut # (Auto) 3.8 (1.4-5.7) K/uL Lymph # (Auto) 0.8 (0.6-2.4) K/uL Amador # (Auto) 0.7 (0.0-0.8) K/uL Eos # (Auto) 0.1 (0.0-0.7) K/uL Baso # (Auto) 0.0 (0.0-0.1) K/uL Nucleated RBC % 0.0 /100WBC Nucleated RBCs # 0 K/uL Sodium (136-148) mmol/L Potassium (3.5-5.1) mmol/L Chloride (98-107) mmol/L Carbon Dioxide (21.0-32.0) mmol/L BUN (7.0-18.0) mg/dL Creatinine (0.8-1.3) mg/dL Est Cr Clr Drug Dosing mL/min Estimated GFR (MDRD) ml/min Glucose (74-106) mg/dL POC Glucose 121 H 109 (60-110) mg/dL Calcium (8.5-10.1) mg/dL Magnesium (1.8-2.4) mg/dL 11/07/20 11/07/20 Range/Units 05:18 08:03 WBC (4.0-11.0) K/uL RBC (4.50-5.90) M/uL Hgb (13.0-17.0) g/dL Hct (38.0-50.0) % MCV (80.0-98.0) fL MCH (27.0-32.0) pg MCHC (31.0-37.0) g/dL RDW Std Deviation (28.0-62.0) fl RDW Coeff of Giovanni (11.0-15.0) % Plt Count (150-400) K/uL MPV (7.40-12.00) fL Neut % (Auto) (48.0-80.0) % Lymph % (Auto) (16.0-40.0) % Amador % (Auto) (0.0-15.0) % Eos % (Auto) (0.0-7.0) % Baso % (Auto) (0.0-1.5) % Neut # (Auto) (1.4-5.7) K/uL Lymph # (Auto) (0.6-2.4) K/uL Amador # (Auto) (0.0-0.8) K/uL Eos # (Auto) (0.0-0.7) K/uL Baso # (Auto) (0.0-0.1) K/uL Nucleated RBC % /100WBC Nucleated RBCs # K/uL Sodium 137 (136-148) mmol/L Potassium 4.1 (3.5-5.1) mmol/L Chloride 101 (98-107) mmol/L Carbon Dioxide 28.8 (21.0-32.0) mmol/L BUN 15 (7.0-18.0) mg/dL Creatinine 0.9 (0.8-1.3) mg/dL Est Cr Clr Drug Dosing 89.47 mL/min Estimated GFR (MDRD) > 60.0 ml/min Glucose 126 H (74-106) mg/dL POC Glucose 122 H (60-110) mg/dL Calcium 8.4 L (8.5-10.1) mg/dL Magnesium 2.2 (1.8-2.4) mg/dL Alberto Results Last 24 Hours: Microbiology 11/05/20 11:25 Urine Culture - Final Urine, Clean Catch Escherichia Coli Normal Urogenital Gely 11/05/20 12:03 Aerobic Blood Culture - Preliminary Blood - Arm, Right NO GROWTH AFTER 1 DAY Anaerobic Blood Culture - Preliminary NO GROWTH AFTER 1 DAY 11/05/20 12:08 Aerobic Blood Culture - Preliminary Blood - Arm, Left NO GROWTH AFTER 1 DAY Anaerobic Blood Culture - Preliminary NO GROWTH AFTER 1 DAY Med Orders - Current: Current Medications Acetaminophen (Acetaminophen 325 Mg Tab) 650 mg PO Q4H PRN PRN Reason: Pain Last Admin: 11/05/20 14:57 Dose: 650 mg Documented by: Aspirin (Aspirin 81 Mg Tab.Ec) 81 mg PO DAILY [facility] Last Admin: 11/07/20 09:33 Dose: 81 mg Documented by: Atorvastatin Calcium (Atorvastatin 40 Mg Tab) 40 mg PO BEDTIME [facility] Last Admin: 11/06/20 20:18 Dose: 40 mg Documented by: Carbamazepine (Carbamazepine 200 Mg Tab) 400 mg PO BID [facility] Last Admin: 11/07/20 09:33 Dose: 400 mg Documented by: Dextrose/Water (50% Dextrose In Water 50 Ml Syringe) 50 ml IV ASDIRECTED PRN PRN Reason: Hypoglycemia Glucagon (Glucagon,Human Recombinant 1 Mg Vial) 1 mg IM ASDIRECTED PRN PRN Reason: Hypoglycemia Ceftriaxone Sodium/Dextrose 1 (gm/ Premix) 50 mls @ 100 mls/hr IV Q24H [facility] Last Admin: 11/06/20 14:29 Dose: 100 mls/hr Documented by: Pantoprazole Sodium 40 mg/ (Sodium Chloride) 10 mls @ 300 mls/hr IV DAILY [facility] Last Admin: 11/07/20 09:32 Dose: 300 mls/hr Documented by: Diltiazem HCl 100 mg/ Sodium (Chloride) 100 mls @ 5 mls/hr IV NOW [facility]; Protocol Last Titration: 11/06/20 11:10 Dose: 0 mg/hr, 0 mls/hr Documented by: Insulin Aspart (Insulin Aspart 100 Units/Ml 3 Ml Pen) 0 unit SUBCUT TIDAC [facility]; Protocol Last Admin: 11/07/20 08:46 Dose: Not Given Documented by: Lisinopril (Lisinopril 10 Mg Tab) 20 mg PO BID [facility] Last Admin: 11/07/20 09:34 Dose: 20 mg Documented by: Metoprolol Tartrate (Metoprolol Tartrate 50 Mg Tab) 100 mg PO Q12H [facility] Last Admin: 11/07/20 09:34 Dose: 100 mg Documented by: Ondansetron HCl (Ondansetron 4 Mg/2 Ml Sdv) 4 mg IVPUSH Q4H PRN PRN Reason: Nausea Last Admin: 11/05/20 14:58 Dose: 4 mg Documented by: Risperidone (Risperidone 0.25 Mg Tab) 0.25 mg PO BEDTIME [facility] Last Admin: 11/06/20 20:18 Dose: 0.25 mg Documented by: Rivaroxaban (Rivaroxaban 10 Mg Tab) 20 mg PO WITHDINNER [facility] Last Admin: 11/06/20 18:41 Dose: 20 mg Documented by: Sertraline HCl (Sertraline 50 Mg Tab) 150 mg PO DAILY [facility] Last Admin: 11/07/20 09:33 Dose: 150 mg Documented by: Sodium Chloride (Sodium Chloride 0.9% 2.5 Ml Syringe) 2.5 ml FLUSH ASDIRECTED PRN PRN Reason: SL patency Discontinued Medications Digoxin (Digoxin 500 Mcg/2 Ml Amp) 250 mcg IVPUSH ONETIME ONE Stop: 11/06/20 04:43 Last Admin: 11/06/20 06:00 Dose: 250 mcg Documented by: Diltiazem HCl (Diltiazem 25 Mg/5 Ml Sdv) Confirm Administered Dose 25 mg .ROUTE .STK-MED ONE Stop: 11/06/20 01:55 Last Admin: 11/06/20 03:44 Dose: Not Given Documented by: Diltiazem HCl (Diltiazem 25 Mg/5 Ml Sdv) Confirm Administered Dose 25 mg .ROUTE .STK-MED ONE Stop: 11/06/20 02:17 Last Admin: 11/06/20 03:44 Dose: Not Given Documented by: Diltiazem HCl (Diltiazem 25 Mg/5 Ml Sdv) 10 mg IVPUSH ONETIME ONE Stop: 11/06/20 02:21 Last Admin: 11/06/20 17:44 Dose: Not Given Documented by: Diltiazem HCl (Diltiazem 25 Mg/5 Ml Sdv) 10 mg IVPUSH ONETIME ONE Stop: 11/06/20 01:41 Last Admin: 11/06/20 17:44 Dose: Not Given Documented by: Diltiazem HCl (Diltiazem 25 Mg/5 Ml Sdv) 5 mg IVPUSH ONETIME ONE Stop: 11/06/20 06:42 Last Admin: 11/06/20 06:41 Dose: 5 mg Documented by: Diltiazem HCl (Diltiazem 25 Mg/5 Ml Sdv) Confirm Administered Dose 25 mg .ROUTE .STK-MED ONE Stop: 11/06/20 06:45 Ceftriaxone Sodium/Dextrose 1 (gm/ Premix) 50 mls @ 100 mls/hr IV ONETIME ONE Stop: 11/05/20 12:22 Last Admin: 11/05/20 12:08 Dose: 100 mls/hr Documented by: Magnesium Sulfate (Magnesium Sulfate In Water 2 Gm/50 Ml) 2 gm in 50 mls @ 50 mls/hr IV ONETIME ONE Stop: 11/06/20 12:50 Last Admin: 11/06/20 12:36 Dose: 50 mls/hr Documented by: Metoprolol Succinate (Metoprolol Succinate 100 Mg Tab.Er) 100 mg PO DAILY [facility] Metoprolol Tartrate (Metoprolol Tartrate 50 Mg Tab) 75 mg PO Q12H [facility] Last Admin: 11/06/20 06:01 Dose: 75 mg Documented by: Metoprolol Tartrate (Metoprolol Tartrate 25 Mg Tab) 25 mg PO ONETIME ONE Stop: 11/06/20 09:38 Last Admin: 11/06/20 10:10 Dose: 25 mg Documented by: Potassium Chloride (Potassium Chloride 20 Meq Tab.Er) 40 meq PO ONETIME ONE Stop: 11/06/20 11:51 Last Admin: 11/06/20 12:35 Dose: 40 meq Documented by: - Exam General: Alert, Oriented Lungs: Clear to Auscultation, Normal Respiratory Effort Cardiovascular: Regular Rate, Regular Rhythm GI/Abdominal Exam: Normal Bowel Sounds, Soft, Non-Tender Psy/Mental Status: Alert - Patient Data Lab Results Last 24 hrs: Laboratory Results - last 24 hr 11/06/20 11/06/20 11/07/20 Range/Units 12:45 18:44 05:18 WBC 5.35 (4.0-11.0) K/uL RBC 3.65 L (4.50-5.90) M/uL Hgb 10.5 L (13.0-17.0) g/dL Hct 33.6 L (38.0-50.0) % MCV 92.1 (80.0-98.0) fL MCH 28.8 (27.0-32.0) pg MCHC 31.3 (31.0-37.0) g/dL RDW Std Deviation 48.9 (28.0-62.0) fl RDW Coeff of Giovanni 14 (11.0-15.0) % Plt Count 179 (150-400) K/uL MPV 10.40 (7.40-12.00) fL Neut % (Auto) 71.5 (48.0-80.0) % Lymph % (Auto) 15.3 L (16.0-40.0) % Amador % (Auto) 12.3 (0.0-15.0) % Eos % (Auto) 0.9 (0.0-7.0) % Baso % (Auto) 0.0 (0.0-1.5) % Neut # (Auto) 3.8 (1.4-5.7) K/uL Lymph # (Auto) 0.8 (0.6-2.4) K/uL Amador # (Auto) 0.7 (0.0-0.8) K/uL Eos # (Auto) 0.1 (0.0-0.7) K/uL Baso # (Auto) 0.0 (0.0-0.1) K/uL Nucleated RBC % 0.0 /100WBC Nucleated RBCs # 0 K/uL Sodium (136-148) mmol/L Potassium (3.5-5.1) mmol/L Chloride (98-107) mmol/L Carbon Dioxide (21.0-32.0) mmol/L BUN (7.0-18.0) mg/dL Creatinine (0.8-1.3) mg/dL Est Cr Clr Drug Dosing mL/min Estimated GFR (MDRD) ml/min Glucose (74-106) mg/dL POC Glucose 121 H 109 (60-110) mg/dL Calcium (8.5-10.1) mg/dL Magnesium (1.8-2.4) mg/dL 11/07/20 11/07/20 Range/Units 05:18 08:03 WBC (4.0-11.0) K/uL RBC (4.50-5.90) M/uL Hgb (13.0-17.0) g/dL Hct (38.0-50.0) % MCV (80.0-98.0) fL MCH (27.0-32.0) pg MCHC (31.0-37.0) g/dL RDW Std Deviation (28.0-62.0) fl RDW Coeff of Giovanni (11.0-15.0) % Plt Count (150-400) K/uL MPV (7.40-12.00) fL Neut % (Auto) (48.0-80.0) % Lymph % (Auto) (16.0-40.0) % Amador % (Auto) (0.0-15.0) % Eos % (Auto) (0.0-7.0) % Baso % (Auto) (0.0-1.5) % Neut # (Auto) (1.4-5.7) K/uL Lymph # (Auto) (0.6-2.4) K/uL Amador # (Auto) (0.0-0.8) K/uL Eos # (Auto) (0.0-0.7) K/uL Baso # (Auto) (0.0-0.1) K/uL Nucleated RBC % /100WBC Nucleated RBCs # K/uL Sodium 137 (136-148) mmol/L Potassium 4.1 (3.5-5.1) mmol/L Chloride 101 (98-107) mmol/L Carbon Dioxide 28.8 (21.0-32.0) mmol/L BUN 15 (7.0-18.0) mg/dL Creatinine 0.9 (0.8-1.3) mg/dL Est Cr Clr Drug Dosing 89.47 mL/min Estimated GFR (MDRD) > 60.0 ml/min Glucose 126 H (74-106) mg/dL POC Glucose 122 H (60-110) mg/dL Calcium 8.4 L (8.5-10.1) mg/dL Magnesium 2.2 (1.8-2.4) mg/dL Result Diagrams: 11/07/20 05:18 11/07/20 05:18 Alberto Results Last 24 hrs: Microbiology 11/05/20 11:25 Urine Culture - Final Urine, Clean Catch Escherichia Coli Normal Urogenital Gely 11/05/20 12:03 Aerobic Blood Culture - Preliminary Blood - Arm, Right NO GROWTH AFTER 1 DAY Anaerobic Blood Culture - Preliminary NO GROWTH AFTER 1 DAY 11/05/20 12:08 Aerobic Blood Culture - Preliminary Blood - Arm, Left NO GROWTH AFTER 1 DAY Anaerobic Blood Culture - Preliminary NO GROWTH AFTER 1 DAY Sepsis Event Note - Evaluation Sepsis Screening Result: No Definite Risk - Focused Exam Vital Signs: Vital Signs Temp Pulse Resp BP BP Pulse Ox 11/07/20 09:34 85 132/79 11/07/20 08:00 19 115/63 93 L 11/07/20 07:00 98.4 F 16 130/82 93 L 11/07/20 06:00 16 108/60 95 11/07/20 05:00 18 116/68 96 11/07/20 04:00 99.6 F 95/45 L 93 L 11/07/20 03:00 20 108/54 L 93 L 11/07/20 02:00 19 93/48 L 94 L 11/07/20 01:00 17 129/65 92 L 11/07/20 00:00 99.7 F 17 106/58 L 94 L - Problem List & Annotations (1) Chest pain SNOMED Code(s): 40783220 Code(s): R07.9 - CHEST PAIN, UNSPECIFIED Status: Acute Current Visit: Yes (2) Urinary incontinence SNOMED Code(s): 858725912 Code(s): R32 - UNSPECIFIED URINARY INCONTINENCE Status: Acute Current Visit: Yes (3) DM type 2 (diabetes mellitus, type 2) SNOMED Code(s): 87637422 Code(s): E11.9 - TYPE 2 DIABETES MELLITUS WITHOUT COMPLICATIONS Status: Acute Current Visit: No (4) History of DVT (deep vein thrombosis) SNOMED Code(s): 041409967 Code(s): Z86.718 - PERSONAL HISTORY OF OTHER VENOUS THROMBOSIS AND EMBOLISM Status: Acute Current Visit: No (5) Hypertension SNOMED Code(s): 93439861 Code(s): I10 - ESSENTIAL (PRIMARY) HYPERTENSION Status: Acute Current Visit: No - Problem List Review Problem List Initiated/Reviewed/Updated: Yes - My Orders Last 24 Hours: My Active Orders 11/07/20 07:12 Obtain Past Medical Record [OM.PC] Routine 11/07/20 10:50 Transfer Patient (Change bed) [ADT] Routine - Plan Plan:: UTI- Rocephin Q24H, Cultures pending [id number], patient currently normal sinus rhythm. Continue 100mg metoprolol tartrate BID, Maintain K+ at 4.0 and Mg2+ at 2, AM labs Xarelto dvt prophylaxis Patient changed to Med/Surg status
[2020-11-07] MEDS: cefTRIAXone 1 GM in Premix Bag 1 BAG IV SCH (12:16)
[2020-11-07] MEDS: Acetaminophen 325 MG Tab PO PRN ×2 (13:50→20:16)
[2020-11-07] MEDS: Rivaroxaban 10 MG Tab PO SCH (18:08)
[2020-11-07] MEDS: atorvaSTATin 40 MG Tab PO SCH (20:11)
[2020-11-07] MEDS: risperiDONE 0.25 MG Tab PO SCH (20:11)
[2020-11-07] MEDS: Ibuprofen 400 MG Tab PO PRN (22:05)
[2020-11-08] MEDS: Acetaminophen 325 MG Tab PO PRN (05:38)
[2020-11-08 06:20] LABS: BLOOD UREA NITROGEN,BUN 13 mg/dL (7.0-18.0); CARBON DIOXIDE,CO2 29.2 mmol/L (21.0-32.0); CHLORIDE,CL 98 mmol/L (98-107); GLUCOSE RANDOM 146 mg/dL (74-106); POTASSIUM,K 4.3 mmol/L (3.5-5.1); SODIUM,NA 134 mmol/L (136-148)
[2020-11-08] MEDS: Ibuprofen 400 MG Tab PO PRN (07:36)
[2020-11-08] MEDS: Insulin Aspart 100 Units/ML 3 ML Pen SUBCUT SCH ×2 (07:38→12:04)
[2020-11-08] MEDS: Pantoprazole 40 MG in Sodium Chloride 0.9% 10 ML IV SCH (08:11)
[2020-11-08] MEDS: Lisinopril 10 MG Tab PO SCH (08:18)
[2020-11-08] MEDS: Metoprolol Tartrate 50 MG Tab PO SCH (08:19)
[2020-11-08] MEDS: Sertraline 50 MG Tab PO SCH (08:22)
[2020-11-08] MEDS: carBAMazepine 200 MG Tab PO SCH (08:23)
[2020-11-08] MEDS: Aspirin 81 MG Tab.EC PO SCH (08:23)
[2020-11-08] MEDS: cefTRIAXone 1 GM in Premix Bag 1 BAG IV SCH (11:46)
--- NOTE | 2020-11-08 11:58 | PCM.DCSUM1 ---
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 Past medical history to include HTN, DVT, seizure disorder, and DM. During the course admission patient reported that he was having suprapubic pain, fever, chills, intermittent right-sided pain. Upon discharge dysuria abdominal pain subsided. Urine culture during admission grew E. coli and patient was treated with IV Rocephin. Patient also had a bout of A. fib RVR which resolved but did require Cardizem drip. Patient upon discharge was in normal sinus rhythm. Patient will continue home dose of metoprolol. Patient also discharged home on 7 days of Keflex antibiotics. Patient advised to follow-up with primary care physician for any changes to medications after discharge. - Discharge Data Discharge Date: 11/08/20 Discharge Disposition: DC/Tfer to [place] [id number] Condition: Good - Referral to Home Health Primary Care Physician: Mati Riggs MD - Discharge Diagnosis/Problem(s) (1) Chest pain SNOMED Code(s): 20017753 ICD Code: R07.9 - CHEST PAIN, UNSPECIFIED Status: Acute (2) Urinary incontinence SNOMED Code(s): 394243736 ICD Code: R32 - UNSPECIFIED URINARY INCONTINENCE Status: Acute (3) DM type 2 (diabetes mellitus, type 2) SNOMED Code(s): 49472416 ICD Code: E11.9 - TYPE 2 DIABETES MELLITUS WITHOUT COMPLICATIONS Status: Acute (4) History of DVT (deep vein thrombosis) SNOMED Code(s): 982614119 ICD Code: Z86.718 - PERSONAL HISTORY OF OTHER VENOUS THROMBOSIS AND EMBOLISM Status: Acute (5) Hypertension SNOMED Code(s): 80017193 ICD Code: I10 - ESSENTIAL (PRIMARY) HYPERTENSION Status: Acute - Patient Instructions Diet: Usual Diet as Tolerated Activity: As Tolerated Notify Provider of: Fever, Increased Pain, Swelling and Redness, Drainage, Nausea and/or Vomiting - Discharge Plan *PRESCRIPTION DRUG MONITORING PROGRAM REVIEWED*: Not Applicable *COPY OF PRESCRIPTION DRUG MONITORING REPORT IN PATIENT HIRO: Not Applicable Prescriptions/Med Rec: cephALEXin [Keflex] 500 mg PO BID #14 cap Home Medications: Home Meds Aspirin [Adult Aspirin] 81 mg PO DAILY 02/21/19 [History] Carboxymethylcellulose Sodium [Refresh Plus 0.5%] 1 drop EYEBOTH BID 10/08/18 [History] EPINEPHrine [Epipen] 0.3 mg IM ASDIRECTED PRN 10/08/18 [History] Liraglutide [Victoza] 1.8 mg SQ DAILY 10/08/18 [History] Metoprolol Succinate 100 mg PO DAILY 10/08/18 [History] Olopatadine [Patanol 0.1% Ophth Soln] 1 drop EYEBOTH DAILY 10/08/18 [History] Potassium Chloride 20 meq PO TID 10/08/18 [History] Rivaroxaban [Xarelto] 20 mg PO DAILY 10/08/18 [History] allopurinoL [Zyloprim] 100 mg PO DAILY 10/08/18 [History] atorvaSTATin Calcium [Lipitor] 40 mg PO BEDTIME 10/08/18 [History] carBAMazepine [Tegretol] 400 mg PO BID 10/08/18 [History] risperiDONE 0.25 mg PO BEDTIME 10/08/18 [History] traZODone HCl [Trazodone HCl] 150 mg PO BEDTIME 10/08/18 [History] metFORMIN [Glucophage] 1,000 mg PO BIDMEALS 07/21/20 [History] Sertraline [Zoloft] 150 mg PO DAILY tablet 07/22/20 [Rx] Acetaminophen 650 mg PO DAILY 11/05/20 [History] Diclofenac Potassium [Zipsor] 50 mg PO BID PRN 11/05/20 [History] Diclofenac Sodium [Voltaren 1% Gel] 1 applic TOP QID PRN 11/05/20 [History] cephALEXin [Keflex] 500 mg PO BID #14 cap 11/08/20 [Rx] Patient Handouts: Urinary Tract Infection, Adult, [id number], Cephalexin Tablets or Capsules Forms: ED Department Discharge Referrals: Nikolai Nelson MD [Physician] - 12/14/20 1:00 pm Mati Riggs MD [Primary Care Provider] - 11/15/20 8:30 am - Discharge Summary/Plan Comment DC Time >30 min.: Yes - General Info Date of Service: 11/08/20 Subjective Update: Patient states his abdominal pain is significantly better, states mild dysuria which is improved since admission. Patient denies fever, chills, nausea, vomiting. Patient states mild headache but states that he has had a long history of headaches. - Review of Systems General: Denies: Fever, Chills Pulmonary: Denies: Shortness of Breath, Cough Cardiovascular: Denies: Chest Pain Gastrointestinal: Denies: Abdominal Pain, Nausea, Vomiting Genitourinary: Reports: Dysuria (Mild but improved since admission. ) Neurological: Denies: Confusion, Dizziness Psychiatric: Denies: Confusion - Patient Data Vitals - Most Recent: Last Vital Signs Temp 99.6 F 11/08/20 07:40 Pulse 86 11/08/20 08:19 Resp 18 11/08/20 07:40 BP 160/98 H 11/08/20 09:30 Pulse Ox 90 L 11/08/20 07:40 Weight - Most Recent: 168.373 kg I&O - Last 24 hours: Intake & Output 11/07/20 11/08/20 11/08/20 22:59 06:59 14:59 Intake Total 680 576 Output Total 805 350 Balance -125 226 Lab Results - Last 24 hrs: Laboratory Results - last 24 hr 11/07/20 11/07/20 11/08/20 Range/Units 12:26 18:05 05:23 WBC 6.09 (4.0-11.0) K/uL RBC 3.74 L (4.50-5.90) M/uL Hgb 10.8 L (13.0-17.0) g/dL Hct 34.2 L (38.0-50.0) % MCV 91.4 (80.0-98.0) fL MCH 28.9 (27.0-32.0) pg MCHC 31.6 (31.0-37.0) g/dL RDW Std Deviation 47.0 (28.0-62.0) fl RDW Coeff of Giovanni 14 (11.0-15.0) % Plt Count 184 (150-400) K/uL MPV 10.20 (7.40-12.00) fL Neut % (Auto) 71.9 (48.0-80.0) % Lymph % (Auto) 13.6 L (16.0-40.0) % Gove % (Auto) 13.3 (0.0-15.0) % Eos % (Auto) 1.0 (0.0-7.0) % Baso % (Auto) 0.2 (0.0-1.5) % Neut # (Auto) 4.4 (1.4-5.7) K/uL Lymph # (Auto) 0.8 (0.6-2.4) K/uL Gove # (Auto) 0.8 (0.0-0.8) K/uL Eos # (Auto) 0.1 (0.0-0.7) K/uL Baso # (Auto) 0.0 (0.0-0.1) K/uL Nucleated RBC % 0.0 /100WBC Nucleated RBCs # 0 K/uL Sodium (136-148) mmol/L Potassium (3.5-5.1) mmol/L Chloride (98-107) mmol/L Carbon Dioxide (21.0-32.0) mmol/L BUN (7.0-18.0) mg/dL Creatinine (0.8-1.3) mg/dL Est Cr Clr Drug Dosing mL/min Estimated GFR (MDRD) ml/min Glucose (74-106) mg/dL POC Glucose 166 H 108 (60-110) mg/dL Calcium (8.5-10.1) mg/dL Magnesium (1.8-2.4) mg/dL 11/08/20 11/08/20 11/08/20 Range/Units 05:23 07:31 11:24 WBC (4.0-11.0) K/uL RBC (4.50-5.90) M/uL Hgb (13.0-17.0) g/dL Hct (38.0-50.0) % MCV (80.0-98.0) fL MCH (27.0-32.0) pg MCHC (31.0-37.0) g/dL RDW Std Deviation (28.0-62.0) fl RDW Coeff of Giovanni (11.0-15.0) % Plt Count (150-400) K/uL MPV (7.40-12.00) fL Neut % (Auto) (48.0-80.0) % Lymph % (Auto) (16.0-40.0) % Gove % (Auto) (0.0-15.0) % Eos % (Auto) (0.0-7.0) % Baso % (Auto) (0.0-1.5) % Neut # (Auto) (1.4-5.7) K/uL Lymph # (Auto) (0.6-2.4) K/uL Gove # (Auto) (0.0-0.8) K/uL Eos # (Auto) (0.0-0.7) K/uL Baso # (Auto) (0.0-0.1) K/uL Nucleated RBC % /100WBC Nucleated RBCs # K/uL Sodium 134 L (136-148) mmol/L Potassium 4.3 (3.5-5.1) mmol/L Chloride 98 (98-107) mmol/L Carbon Dioxide 29.2 (21.0-32.0) mmol/L BUN 13 (7.0-18.0) mg/dL Creatinine 0.9 (0.8-1.3) mg/dL Est Cr Clr Drug Dosing 89.47 mL/min Estimated GFR (MDRD) > 60.0 ml/min Glucose 146 H (74-106) mg/dL POC Glucose 143 H 151 H (60-110) mg/dL Calcium 8.7 (8.5-10.1) mg/dL Magnesium 2.1 (1.8-2.4) mg/dL NUVIA Results - Last 24 hrs: Microbiology 11/05/20 12:08 Aerobic Blood Culture - Preliminary Blood - Arm, Left NO GROWTH AFTER 2 DAYS Anaerobic Blood Culture - Preliminary NO GROWTH AFTER 2 DAYS 11/05/20 12:03 Aerobic Blood Culture - Preliminary Blood - Arm, Right NO GROWTH AFTER 2 DAYS Anaerobic Blood Culture - Preliminary NO GROWTH AFTER 2 DAYS 11/05/20 11:25 Urine Culture - Final Urine, Clean Catch Escherichia Coli Normal Urogenital Gely Med Orders - Current: Current Medications Acetaminophen (Acetaminophen 325 Mg Tab) 650 mg PO Q4H PRN PRN Reason: Pain Last Admin: 11/08/20 05:38 Dose: 650 mg Documented by: Aspirin (Aspirin 81 Mg Tab.Ec) 81 mg PO DAILY [facility] Last Admin: 11/08/20 08:23 Dose: 81 mg Documented by: Atorvastatin Calcium (Atorvastatin 40 Mg Tab) 40 mg PO BEDTIME [facility] Last Admin: 11/07/20 20:11 Dose: 40 mg Documented by: Carbamazepine (Carbamazepine 200 Mg Tab) 400 mg PO BID [facility] Last Admin: 11/08/20 08:23 Dose: 400 mg Documented by: Dextrose/Water (50% Dextrose In Water 50 Ml Syringe) 50 ml IV ASDIRECTED PRN PRN Reason: Hypoglycemia Glucagon (Glucagon,Human Recombinant 1 Mg Vial) 1 mg IM ASDIRECTED PRN PRN Reason: Hypoglycemia Ceftriaxone Sodium/Dextrose 1 (gm/ Premix) 50 mls @ 100 mls/hr IV Q24H [facility] Last Admin: 11/08/20 11:46 Dose: 100 mls/hr Documented by: Pantoprazole Sodium 40 mg/ (Sodium Chloride) 10 mls @ 300 mls/hr IV DAILY [facility] Last Admin: 11/08/20 08:11 Dose: 300 mls/hr Documented by: Diltiazem HCl 100 mg/ Sodium (Chloride) 100 mls @ 5 mls/hr IV NOW [facility]; Protocol Last Titration: 11/06/20 11:10 Dose: 0 mg/hr, 0 mls/hr Documented by: Ibuprofen (Ibuprofen 400 Mg Tab) 400 mg PO Q8H PRN PRN Reason: Pain Last Admin: 11/08/20 07:36 Dose: 400 mg Documented by: Insulin Aspart (Insulin Aspart 100 Units/Ml 3 Ml Pen) 0 unit SUBCUT TIDAC [facility]; Protocol Last Admin: 11/08/20 07:38 Dose: Not Given Documented by: Lisinopril (Lisinopril 10 Mg Tab) 20 mg PO BID [facility] Last Admin: 11/08/20 08:18 Dose: 20 mg Documented by: Metoprolol Tartrate (Metoprolol Tartrate 50 Mg Tab) 100 mg PO Q12H [facility] Last Admin: 11/08/20 08:19 Dose: 100 mg Documented by: Ondansetron HCl (Ondansetron 4 Mg/2 Ml Sdv) 4 mg IVPUSH Q4H PRN PRN Reason: Nausea Last Admin: 11/05/20 14:58 Dose: 4 mg Documented by: Risperidone (Risperidone 0.25 Mg Tab) 0.25 mg PO BEDTIME [facility] Last Admin: 11/07/20 20:11 Dose: 0.25 mg Documented by: Rivaroxaban (Rivaroxaban 10 Mg Tab) 20 mg PO WITHDINNER [facility] Last Admin: 11/07/20 18:08 Dose: 20 mg Documented by: Sertraline HCl (Sertraline 50 Mg Tab) 150 mg PO DAILY [facility] Last Admin: 11/08/20 08:22 Dose: 150 mg Documented by: Sodium Chloride (Sodium Chloride 0.9% 2.5 Ml Syringe) 2.5 ml FLUSH ASDIRECTED PRN PRN Reason: SL patency Discontinued Medications Digoxin (Digoxin 500 Mcg/2 Ml Amp) 250 mcg IVPUSH ONETIME ONE Stop: 11/06/20 04:43 Last Admin: 11/06/20 06:00 Dose: 250 mcg Documented by: Diltiazem HCl (Diltiazem 25 Mg/5 Ml Sdv) Confirm Administered Dose 25 mg .ROUTE .STK-MED ONE Stop: 11/06/20 01:55 Last Admin: 11/06/20 03:44 Dose: Not Given Documented by: Diltiazem HCl (Diltiazem 25 Mg/5 Ml Sdv) Confirm Administered Dose 25 mg .ROUTE .STK-MED ONE Stop: 11/06/20 02:17 Last Admin: 11/06/20 03:44 Dose: Not Given Documented by: Diltiazem HCl (Diltiazem 25 Mg/5 Ml Sdv) 10 mg IVPUSH ONETIME ONE Stop: 11/06/20 02:21 Last Admin: 11/06/20 17:44 Dose: Not Given Documented by: Diltiazem HCl (Diltiazem 25 Mg/5 Ml Sdv) 10 mg IVPUSH ONETIME ONE Stop: 11/06/20 01:41 Last Admin: 11/06/20 17:44 Dose: Not Given Documented by: Diltiazem HCl (Diltiazem 25 Mg/5 Ml Sdv) 5 mg IVPUSH ONETIME ONE Stop: 11/06/20 06:42 Last Admin: 11/06/20 06:41 Dose: 5 mg Documented by: Diltiazem HCl (Diltiazem 25 Mg/5 Ml Sdv) Confirm Administered Dose 25 mg .ROUTE .STK-MED ONE Stop: 11/06/20 06:45 Ceftriaxone Sodium/Dextrose 1 (gm/ Premix) 50 mls @ 100 mls/hr IV ONETIME ONE Stop: 11/05/20 12:22 Last Admin: 11/05/20 12:08 Dose: 100 mls/hr Documented by: Magnesium Sulfate (Magnesium Sulfate In Water 2 Gm/50 Ml) 2 gm in 50 mls @ 50 mls/hr IV ONETIME ONE Stop: 11/06/20 12:50 Last Admin: 11/06/20 12:36 Dose: 50 mls/hr Documented by: Metoprolol Succinate (Metoprolol Succinate 100 Mg Tab.Er) 100 mg PO DAILY [facility] Metoprolol Tartrate (Metoprolol Tartrate 50 Mg Tab) 75 mg PO Q12H [facility] Last Admin: 11/06/20 06:01 Dose: 75 mg Documented by: Metoprolol Tartrate (Metoprolol Tartrate 25 Mg Tab) 25 mg PO ONETIME ONE Stop: 11/06/20 09:38 Last Admin: 11/06/20 10:10 Dose: 25 mg Documented by: Potassium Chloride (Potassium Chloride 20 Meq Tab.Er) 40 meq PO ONETIME ONE Stop: 11/06/20 11:51 Last Admin: 11/06/20 12:35 Dose: 40 meq Documented by: - Exam General: Reports: Alert, Oriented Lungs: Reports: Clear to Auscultation, Normal Respiratory Effort Cardiovascular: Reports: Regular Rate, Regular Rhythm GI/Abdominal Exam: Normal Bowel Sounds, Soft, Non-Tender Back Exam: Reports: CVA Tenderness (L), CVA Tenderness (R) Psy/Mental Status: Reports: Alert <Lukas Savage - Last Filed: 11/09/20 12:58> Discharge Summary - Referral to Home Health Primary Care Physician: Mati Riggs MD - Patient Data Vitals - Most Recent: Last Vital Signs Temp 37.2 C 11/08/20 14:08 Pulse 82 11/08/20 14:08 Resp 18 11/08/20 14:08 BP 172/100 H 11/08/20 14:08 Pulse Ox 93 L 11/08/20 14:08 I&O - Last 24 hours: Intake & Output 11/08/20 11/09/20 11/09/20 22:59 06:59 14:59 Intake Total 980 Output Total 500 Balance 480 NUVIA Results - Last 24 hrs: Microbiology 11/05/20 12:08 Aerobic Blood Culture - Preliminary Blood - Arm, Left NO GROWTH AFTER 4 DAYS Anaerobic Blood Culture - Preliminary NO GROWTH AFTER 4 DAYS 11/05/20 12:03 Aerobic Blood Culture - Preliminary Blood - Arm, Right NO GROWTH AFTER 4 DAYS Anaerobic Blood Culture - Preliminary NO GROWTH AFTER 4 DAYS Med Orders - Current: Current Medications Discontinued Medications Acetaminophen (Acetaminophen 325 Mg Tab) 650 mg PO Q4H PRN PRN Reason: Pain Last Admin: 11/08/20 05:38 Dose: 650 mg Documented by: Aspirin (Aspirin 81 Mg Tab.Ec) 81 mg PO DAILY [facility] Last Admin: 11/08/20 08:23 Dose: 81 mg Documented by: Atorvastatin Calcium (Atorvastatin 40 Mg Tab) 40 mg PO BEDTIME [facility] Last Admin: 11/07/20 20:11 Dose: 40 mg Documented by: Carbamazepine (Carbamazepine 200 Mg Tab) 400 mg PO BID [facility] Last Admin: 11/08/20 08:23 Dose: 400 mg Documented by: Dextrose/Water (50% Dextrose In Water 50 Ml Syringe) 50 ml IV ASDIRECTED PRN PRN Reason: Hypoglycemia Digoxin (Digoxin 500 Mcg/2 Ml Amp) 250 mcg IVPUSH ONETIME ONE Stop: 11/06/20 04:43 Last Admin: 11/06/20 06:00 Dose: 250 mcg Documented by: Diltiazem HCl (Diltiazem 25 Mg/5 Ml Sdv) Confirm Administered Dose 25 mg .ROUTE .STK-MED ONE Stop: 11/06/20 01:55 Last Admin: 11/06/20 03:44 Dose: Not Given Documented by: Diltiazem HCl (Diltiazem 25 Mg/5 Ml Sdv) Confirm Administered Dose 25 mg .ROUTE .STK-MED ONE Stop: 11/06/20 02:17 Last Admin: 11/06/20 03:44 Dose: Not Given Documented by: Diltiazem HCl (Diltiazem 25 Mg/5 Ml Sdv) 10 mg IVPUSH ONETIME ONE Stop: 11/06/20 02:21 Last Admin: 11/06/20 17:44 Dose: Not Given Documented by: Diltiazem HCl (Diltiazem 25 Mg/5 Ml Sdv) 10 mg IVPUSH ONETIME ONE Stop: 11/06/20 01:41 Last Admin: 11/06/20 17:44 Dose: Not Given Documented by: Diltiazem HCl (Diltiazem 25 Mg/5 Ml Sdv) 5 mg IVPUSH ONETIME ONE Stop: 11/06/20 06:42 Last Admin: 11/06/20 06:41 Dose: 5 mg Documented by: Diltiazem HCl (Diltiazem 25 Mg/5 Ml Sdv) Confirm Administered Dose 25 mg .ROUTE .STK-MED ONE Stop: 11/06/20 06:45 Glucagon (Glucagon,Human Recombinant 1 Mg Vial) 1 mg IM ASDIRECTED PRN PRN Reason: Hypoglycemia Ceftriaxone Sodium/Dextrose 1 (gm/ Premix) 50 mls @ 100 mls/hr IV ONETIME ONE Stop: 11/05/20 12:22 Last Admin: 11/05/20 12:08 Dose: 100 mls/hr Documented by: Ceftriaxone Sodium/Dextrose 1 (gm/ Premix) 50 mls @ 100 mls/hr IV Q24H [facility] Last Admin: 11/08/20 11:46 Dose: 100 mls/hr Documented by: Pantoprazole Sodium 40 mg/ (Sodium Chloride) 10 mls @ 300 mls/hr IV DAILY [facility] Last Admin: 11/08/20 08:11 Dose: 300 mls/hr Documented by: Diltiazem HCl 100 mg/ Sodium (Chloride) 100 mls @ 5 mls/hr IV NOW [facility]; Protocol Last Titration: 11/06/20 11:10 Dose: 0 mg/hr, 0 mls/hr Documented by: Magnesium Sulfate (Magnesium Sulfate In Water 2 Gm/50 Ml) 2 gm in 50 mls @ 50 mls/hr IV ONETIME ONE Stop: 11/06/20 12:50 Last Admin: 11/06/20 12:36 Dose: 50 mls/hr Documented by: Ibuprofen (Ibuprofen 400 Mg Tab) 400 mg PO Q8H PRN PRN Reason: Pain Last Admin: 11/08/20 07:36 Dose: 400 mg Documented by: Insulin Aspart (Insulin Aspart 100 Units/Ml 3 Ml Pen) 0 unit SUBCUT TIDAC [facility]; Protocol Last Admin: 11/08/20 12:04 Dose: 1 unit Documented by: Lisinopril (Lisinopril 10 Mg Tab) 20 mg PO BID [facility] Last Admin: 11/08/20 08:18 Dose: 20 mg Documented by: Metoprolol Succinate (Metoprolol Succinate 100 Mg Tab.Er) 100 mg PO DAILY [facility] Metoprolol Tartrate (Metoprolol Tartrate 50 Mg Tab) 75 mg PO Q12H [facility] Last Admin: 11/06/20 06:01 Dose: 75 mg Documented by: Metoprolol Tartrate (Metoprolol Tartrate 25 Mg Tab) 25 mg PO ONETIME ONE Stop: 11/06/20 09:38 Last Admin: 11/06/20 10:10 Dose: 25 mg Documented by: Metoprolol Tartrate (Metoprolol Tartrate 50 Mg Tab) 100 mg PO Q12H [facility] Last Admin: 11/08/20 08:19 Dose: 100 mg Documented by: Ondansetron HCl (Ondansetron 4 Mg/2 Ml Sdv) 4 mg IVPUSH Q4H PRN PRN Reason: Nausea Last Admin: 11/05/20 14:58 Dose: 4 mg Documented by: Potassium Chloride (Potassium Chloride 20 Meq Tab.Er) 40 meq PO ONETIME ONE Stop: 11/06/20 11:51 Last Admin: 11/06/20 12:35 Dose: 40 meq Documented by: Risperidone (Risperidone 0.25 Mg Tab) 0.25 mg PO BEDTIME [facility] Last Admin: 11/07/20 20:11 Dose: 0.25 mg Documented by: Rivaroxaban (Rivaroxaban 10 Mg Tab) 20 mg PO WITHDINNER [facility] Last Admin: 11/07/20 18:08 Dose: 20 mg Documented by: Sertraline HCl (Sertraline 50 Mg Tab) 150 mg PO DAILY [facility] Last Admin: 11/08/20 08:22 Dose: 150 mg Documented by: Sodium Chloride (Sodium Chloride 0.9% 2.5 Ml Syringe) 2.5 ml FLUSH ASDIRECTED PRN PRN Reason: SL patency - Free Text/Narrative Note: I have seen and evaluated the patient with the resident. I discussed findings and treatment plan with the resident. I agree with the assessment and plan outlined in the resident's note.
== END 2020-11-08 15:25 | DRG 690 ==
LOC: MW.ED 09:18 → MW.MS 11:32 → MW.ICU 11-06 03:35 → OBSVTOIN 11-06 03:35 → MW.MS 11-07 09:30 → MW.ICU 11-07 14:24 → MW.MS 11-07 14:53 → MW.ICU 11-07 17:37
PROVIDERS: ADMIT Internal Medicine; ATTEND Internal Medicine
DX: N39.0 Urinary tract infection, site not specified (principal); Z68.43 Body mass index [BMI] 50.0-59.9, adult; R07.9 Chest pain, unspecified; H52.10 Myopia, unspecified eye; I10 Essential (primary) hypertension; J45.909 Unspecified asthma, uncomplicated; G40.909 Epilepsy, unspecified, not intractable, without status epilepticus; E11.9 Type 2 diabetes mellitus without complications; B96.20 Unspecified Escherichia coli [E. coli] as the cause of diseases classified elsewhere; I48.91 Unspecified atrial fibrillation; E66.9 Obesity, unspecified; F91.9 Conduct disorder, unspecified; M10.9 Gout, unspecified; Z88.8 Allergy status to other drugs, medicaments and biological substances; R32 Unspecified urinary incontinence; Z79.82 Long term (current) use of aspirin; Z79.84 Long term (current) use of oral hypoglycemic drugs; Z79.899 Other long term (current) drug therapy; Z86.718 Personal history of other venous thrombosis and embolism; Z79.01 Long term (current) use of anticoagulants; Z91.030 Bee allergy status; Z91.09 Other allergy status, other than to drugs and biological substances; Z88.2 Allergy status to sulfonamides; K59.09 Other constipation; Z87.440 Personal history of urinary (tract) infections; Z20.822 Contact with and (suspected) exposure to COVID-19
CPT/HCPCS: 0240U; 36415; 71045; 80048; 80053; 81001; 82550; 82962; 83605; 83690; 83735; 84100; 84484; 85025; 85610; 85730; 87040; 87086; 87088; 87186; 93005; 99285; 93010; 99283; A9270-GY; C9113; J0696; J1160; J1815-GY; J2405; J3475; J3490

== ENCOUNTER 2021-11-01 14:29 | Observation (INO) | payer MEDICARE, MEDICAID ==
[2021-11-01] MEDS ORDERED: Sodium Chloride 0.9% 10 ML Syringe FLUSH PRN (14:41)
[2021-11-01] MEDS ORDERED: Sodium Chloride 0.9% 2.5 ML Syringe FLUSH PRN (14:41)
[2021-11-01 15:17] LABS: BLOOD UREA NITROGEN,BUN 13 mg/dL (7.0-18.0); CHLORIDE,CL 100 mmol/L (98-107); GLUCOSE RANDOM 109 mg/dL (74-106); LIPASE 86 U/L (73-393); POTASSIUM,K 4.1 mmol/L (3.5-5.1); SODIUM,NA 140 mmol/L (136-148)
[2021-11-01] MEDS ORDERED: diphenhydrAMINE 50 MG/ML SDV IVPUSH ONE (15:30)
[2021-11-01] MEDS ORDERED: methylPREDNISolone Sodium Succinate 125 MG/2 ML SDV IVPUSH ONE (15:30)
[2021-11-01 16:00] LABS: CORONAVIRUS COVID-19 NAA NEGATIVE (NEGATIVE); INFLUENZA A NAA NEGATIVE (NEGATIVE); INFLUENZA B NAA NEGATIVE (NEGATIVE)
[2021-11-01] MEDS ORDERED: Iopamidol 755 Mg/ML 100 ML Bottle IVPUSH ONE (16:28)
[2021-11-01] MEDS ORDERED: Albuterol/Ipratropium 3.0-0.5 MG/3 ML Neb Soln NEB ONE ×2 (18:16→18:18)
[2021-11-01] MEDS ORDERED: 50% Dextrose in Water 50 ML Syringe IVPUSH PRN (22:44)
[2021-11-01] MEDS ORDERED: Glucagon,Human Recombinant 1 MG Vial IM PRN (22:44)
[2021-11-02] MEDS: Albuterol/Ipratropium 3.0-0.5 MG/3 ML Neb Soln NEB SCH ×5 (00:02→23:33)
[2021-11-02] MEDS: risperiDONE 1 MG Tab PO SCH ×2 (00:02→20:21)
[2021-11-02] MEDS: traZODone 50 MG Tab PO SCH ×2 (00:02→20:22)
[2021-11-02] MEDS ORDERED: traZODone 50 MG Tab ONE (00:04)
[2021-11-02 05:50] LABS: BLOOD UREA NITROGEN,BUN 17 mg/dL (7.0-18.0); CARBON DIOXIDE,CO2 30.6 mmol/L (21.0-32.0); CHLORIDE,CL 100 mmol/L (98-107); GLUCOSE RANDOM 138 mg/dL (74-106); POTASSIUM,K 3.8 mmol/L (3.5-5.1); SODIUM,NA 139 mmol/L (136-148)
[2021-11-02] MEDS: Pantoprazole 40 MG Tab.CR PO SCH (06:31)
[2021-11-02] MEDS: Potassium Chloride 20 MEQ Tab.ER PO SCH ×3 (06:31→21:40)
[2021-11-02] MEDS: Insulin Aspart 100 Units/ML 3 ML Pen SUBCUT SCH ×3 (06:32→16:28)
[2021-11-02] MEDS: metFORMIN 500 MG Tab PO SCH ×2 (08:11→16:19)
[2021-11-02] MEDS: Furosemide 40 MG Tab PO SCH (08:12)
[2021-11-02] MEDS: Lisinopril 10 MG Tab PO SCH ×2 (08:13→20:20)
[2021-11-02] MEDS: Rivaroxaban 10 MG Tab PO SCH (08:13)
[2021-11-02] MEDS: Sertraline 50 MG Tab PO SCH (08:14)
[2021-11-02] MEDS: carBAMazepine 200 MG Tab PO SCH ×2 (08:15→20:20)
[2021-11-02] MEDS: Aspirin 81 MG Tab.EC PO SCH (08:16)
[2021-11-02] MEDS: Diltiazem 120 MG Cap.CD PO SCH (08:16)
[2021-11-02] MEDS: Metoprolol Succinate 100 MG Tab.ER PO SCH (08:17)
[2021-11-02] MEDS: Allopurinol 100 MG Tab PO SCH (08:17)
[2021-11-02] MEDS: methylPREDNISolone Sodium Succinate 40 MG/1 ML SDV IVPUSH SCH (08:18)
[2021-11-02] MEDS: Azithromycin 250 MG Tab PO SCH (11:06)
[2021-11-02] MEDS: atorvaSTATin 40 MG Tab PO SCH (20:22)
[2021-11-03] MEDS: Albuterol/Ipratropium 3.0-0.5 MG/3 ML Neb Soln NEB SCH ×3 (06:15→17:07)
[2021-11-03 06:24] LABS: BLOOD UREA NITROGEN,BUN 17 mg/dL (7.0-18.0); CARBON DIOXIDE,CO2 30.5 mmol/L (21.0-32.0); CHLORIDE,CL 100 mmol/L (98-107); GLUCOSE RANDOM 120 mg/dL (74-106); POTASSIUM,K 4.3 mmol/L (3.5-5.1); SODIUM,NA 139 mmol/L (136-148)
[2021-11-03] MEDS: Potassium Chloride 20 MEQ Tab.ER PO SCH ×3 (06:40→22:14)
[2021-11-03] MEDS: Pantoprazole 40 MG Tab.CR PO SCH (06:40)
[2021-11-03] MEDS: Insulin Aspart 100 Units/ML 3 ML Pen SUBCUT SCH ×3 (07:15→16:50)
[2021-11-03] MEDS: metFORMIN 500 MG Tab PO SCH ×2 (08:06→16:49)
[2021-11-03 08:07] LABS: BORDETELLA PARAPERT IS1001 Not Detected (Not Detected)
[2021-11-03] MEDS: Aspirin 81 MG Tab.EC PO SCH (08:07)
[2021-11-03] MEDS: Sertraline 50 MG Tab PO SCH (08:07)
[2021-11-03] MEDS: Diltiazem 120 MG Cap.CD PO SCH (08:07)
[2021-11-03] MEDS: Metoprolol Succinate 100 MG Tab.ER PO SCH (08:08)
[2021-11-03] MEDS: carBAMazepine 200 MG Tab PO SCH ×2 (08:08→20:27)
[2021-11-03] MEDS: Lisinopril 10 MG Tab PO SCH ×2 (08:08→20:25)
[2021-11-03] MEDS: Allopurinol 100 MG Tab PO SCH (08:08)
[2021-11-03] MEDS: Furosemide 40 MG Tab PO SCH (08:08)
[2021-11-03] MEDS: Rivaroxaban 10 MG Tab PO SCH (08:09)
[2021-11-03] MEDS: methylPREDNISolone Sodium Succinate 40 MG/1 ML SDV IVPUSH SCH (08:09)
[2021-11-03] MEDS: Azithromycin 250 MG Tab PO SCH (11:59)
[2021-11-03] MEDS: atorvaSTATin 40 MG Tab PO SCH (20:24)
[2021-11-03] MEDS: traZODone 50 MG Tab PO SCH (20:24)
[2021-11-03] MEDS: risperiDONE 1 MG Tab PO SCH (20:26)
[2021-11-04] MEDS: Albuterol/Ipratropium 3.0-0.5 MG/3 ML Neb Soln NEB SCH ×3 (00:15→11:05)
[2021-11-04] MEDS: Pantoprazole 40 MG Tab.CR PO SCH (06:34)
[2021-11-04] MEDS: Potassium Chloride 20 MEQ Tab.ER PO SCH (06:34)
[2021-11-04] MEDS: Insulin Aspart 100 Units/ML 3 ML Pen SUBCUT SCH ×2 (07:37→11:05)
[2021-11-04] MEDS: Lisinopril 10 MG Tab PO SCH (08:11)
[2021-11-04] MEDS: Aspirin 81 MG Tab.EC PO SCH (08:12)
[2021-11-04] MEDS: Allopurinol 100 MG Tab PO SCH (08:13)
[2021-11-04] MEDS: Rivaroxaban 10 MG Tab PO SCH (08:13)
[2021-11-04] MEDS: Metoprolol Succinate 100 MG Tab.ER PO SCH (08:14)
[2021-11-04] MEDS: Furosemide 40 MG Tab PO SCH (08:15)
[2021-11-04] MEDS: metFORMIN 500 MG Tab PO SCH (08:17)
[2021-11-04] MEDS: Diltiazem 120 MG Cap.CD PO SCH (08:17)
[2021-11-04] MEDS: carBAMazepine 200 MG Tab PO SCH (08:19)
[2021-11-04] MEDS: methylPREDNISolone Sodium Succinate 40 MG/1 ML SDV IVPUSH SCH (08:20)
[2021-11-04] MEDS ORDERED: Sertraline 100 MG Tab PO SCH (09:00)
[2021-11-04] MEDS: Azithromycin 250 MG Tab PO SCH (11:02)
== END 2021-11-04 12:40 | disposition home or self-care (01) ==
LOC: MW.ED 14:29 → MW.MS 19:15
PROVIDERS: ADMIT Internal Medicine; ATTEND Internal Medicine
DX: J45.901 Unspecified asthma with (acute) exacerbation (principal); J96.01 Acute respiratory failure with hypoxia; I10 Essential (primary) hypertension; E11.9 Type 2 diabetes mellitus without complications; G40.909 Epilepsy, unspecified, not intractable, without status epilepticus; I48.91 Unspecified atrial fibrillation; E66.9 Obesity, unspecified; Z68.43 Body mass index [BMI] 50.0-59.9, adult; B34.9 Viral infection, unspecified; Z88.2 Allergy status to sulfonamides; Z91.030 Bee allergy status; Z91.041 Radiographic dye allergy status; Z86.718 Personal history of other venous thrombosis and embolism; Z79.51 Long term (current) use of inhaled steroids; Z79.82 Long term (current) use of aspirin; Z79.899 Other long term (current) drug therapy; Z79.01 Long term (current) use of anticoagulants; Z20.822 Contact with and (suspected) exposure to COVID-19
CPT/HCPCS: 0240U; 36415; 71275; 80048; 80053; 82947; 83690; 84484; 85025; 87486; 87581; 87633; 87798; 93005; 94640; 96374; 96375; 96376; 97161; 99285; A9270; G0378; J1200; J1815; J2920; J2930; Q9967; J7620-GY

== ENCOUNTER 2021-11-30 13:43 | Observation (INO) | payer MEDICARE, MEDICAID ==
[2021-11-30] MEDS ORDERED: methylPREDNISolone Sodium Succinate 125 MG/2 ML SDV IVPUSH ONE (13:52)
[2021-11-30] MEDS ORDERED: Albuterol/Ipratropium 3.0-0.5 MG/3 ML Neb Soln NEB ONE (13:52)
[2021-11-30 14:38] LABS: BLOOD UREA NITROGEN,BUN 16 mg/dL (7.0-18.0); CARBON DIOXIDE,CO2 27.5 mmol/L (21.0-32.0); CHLORIDE,CL 98 mmol/L (98-107); GLUCOSE RANDOM 112 mg/dL (74-106); POTASSIUM,K 3.8 mmol/L (3.5-5.1); SODIUM,NA 136 mmol/L (136-148)
[2021-11-30 14:51] LABS: CORONAVIRUS COVID-19 NAA NEGATIVE (NEGATIVE); INFLUENZA A NAA NEGATIVE (NEGATIVE); INFLUENZA B NAA NEGATIVE (NEGATIVE)
[2021-11-30] MEDS ORDERED: Azithromycin 500 MG in Sodium Chloride 0.9% 250 ML IV ONE (16:27)
[2021-11-30] MEDS ORDERED: 50% Dextrose in Water 50 ML Syringe IVPUSH PRN (17:38)
[2021-11-30] MEDS ORDERED: Glucagon,Human Recombinant 1 MG Vial IM PRN (17:38)
[2021-11-30] MEDS: Insulin Aspart 100 Units/ML 3 ML Pen SUBCUT SCH (17:57)
[2021-11-30] MEDS: Albuterol/Ipratropium 3.0-0.5 MG/3 ML Neb Soln NEB SCH (20:43)
[2021-11-30] MEDS ORDERED: risperiDONE 1 MG Tab PO SCH (22:00)
[2021-11-30] MEDS ORDERED: traZODone 50 MG Tab PO SCH (22:00)
[2021-11-30] MEDS ORDERED: atorvaSTATin 40 MG Tab PO SCH (22:00)
[2021-11-30] MEDS ORDERED: Albuterol 8 GM Inhaler INH PRN (22:16)
[2021-12-01] MEDS: Albuterol/Ipratropium 3.0-0.5 MG/3 ML Neb Soln NEB SCH ×3 (00:41→11:05)
[2021-12-01 04:21] LABS: BLOOD UREA NITROGEN,BUN 17 mg/dL (7.0-18.0); CARBON DIOXIDE,CO2 29.6 mmol/L (21.0-32.0); CHLORIDE,CL 100 mmol/L (98-107); GLUCOSE RANDOM 153 mg/dL (74-106); POTASSIUM,K 4.5 mmol/L (3.5-5.1); SODIUM,NA 136 mmol/L (136-148)
[2021-12-01] MEDS: Insulin Aspart 100 Units/ML 3 ML Pen SUBCUT SCH ×2 (06:31→10:52)
[2021-12-01] MEDS ORDERED: Pantoprazole 40 MG Tab.CR PO SCH (07:30)
[2021-12-01] MEDS ORDERED: metFORMIN 500 MG Tab PO SCH (08:00)
[2021-12-01] MEDS ORDERED: Metoprolol Succinate 100 MG Tab.ER PO SCH (09:00)
[2021-12-01] MEDS ORDERED: Lisinopril 10 MG Tab PO SCH (09:00)
[2021-12-01] MEDS ORDERED: Allopurinol 100 MG Tab PO SCH (09:00)
[2021-12-01] MEDS ORDERED: OLOPATADINE EYEBOTH SCH (09:00)
[2021-12-01] MEDS ORDERED: carBAMazepine 200 MG Tab PO SCH (09:00)
[2021-12-01] MEDS ORDERED: Furosemide 40 MG Tab PO SCH (09:00)
[2021-12-01] MEDS ORDERED: Aspirin 81 MG Tab.EC PO SCH (09:00)
[2021-12-01] MEDS ORDERED: Sertraline 50 MG Tab PO SCH (09:00)
[2021-12-01] MEDS ORDERED: Diltiazem 120 MG Cap.CD PO SCH (09:00)
[2021-12-01] MEDS ORDERED: Rivaroxaban 10 MG Tab PO SCH (09:00)
[2021-12-01] MEDS ORDERED: Azithromycin 250 MG Tab PO SCH (14:00)
[2021-12-01] MEDS ORDERED: atorvaSTATin 40 MG Tab PO SCH (21:00)
[2021-12-01] MEDS ORDERED: traZODone 50 MG Tab PO SCH (21:00)
[2021-12-01] MEDS ORDERED: risperiDONE 1 MG Tab PO SCH (21:00)
== END 2021-12-01 13:30 | disposition home or self-care (01) ==
LOC: MW.ED 13:43 → MW.MS 16:30
PROVIDERS: ADMIT Internal Medicine; ATTEND Internal Medicine
DX: J45.901 Unspecified asthma with (acute) exacerbation (principal); E11.9 Type 2 diabetes mellitus without complications; I10 Essential (primary) hypertension; E66.01 Morbid (severe) obesity due to excess calories; G40.909 Epilepsy, unspecified, not intractable, without status epilepticus; R09.02 Hypoxemia; Z91.041 Radiographic dye allergy status; Z91.030 Bee allergy status; Z88.2 Allergy status to sulfonamides; Z91.013 Allergy to seafood; Z79.84 Long term (current) use of oral hypoglycemic drugs; Z79.51 Long term (current) use of inhaled steroids; Z86.718 Personal history of other venous thrombosis and embolism; Z79.01 Long term (current) use of anticoagulants; Z79.82 Long term (current) use of aspirin; Z79.899 Other long term (current) drug therapy; Z79.52 Long term (current) use of systemic steroids; Z20.822 Contact with and (suspected) exposure to COVID-19; Z68.43 Body mass index [BMI] 50.0-59.9, adult
CPT/HCPCS: 0240U; 36415; 71045; 80053; 82947; 83735; 84484; 85025; 86140; 87651; 93005; 94640; 96365; 96375; 99285; A9270; J0456; J1815; J2930; J7050; 99217; 99218; G0378; J7620-GY

== ENCOUNTER 2022-04-30 09:17 | Emergency (ER) | payer MEDICARE, MEDICAID ==
[2022-04-30] MEDS: Sodium Chloride 0.9% 10 ML Syringe FLUSH PRN (09:38)
[2022-04-30] MEDS: Sodium Chloride 0.9% 2.5 ML Syringe FLUSH PRN (09:38)
[2022-04-30] MEDS: Albuterol/Ipratropium 3.0-0.5 MG/3 ML Neb Soln NEB ONE ×2 (09:38→11:02)
[2022-04-30 10:09] LABS: CARBON DIOXIDE,CO2 31.6 mmol/L (21.0-32.0); POTASSIUM,K 4.6 mmol/L (3.5-5.1)
[2022-04-30] MEDS: predniSONE 20 MG Tab PO ONE (11:01)
[2022-04-30] MEDS: Azithromycin 250 MG Tab PO STA (11:02)
== END 2022-04-30 11:38 | disposition home or self-care (01) ==
LOC: MW.ED 09:17
DX: J45.901 Unspecified asthma with (acute) exacerbation (principal); J18.9 Pneumonia, unspecified organism; E11.9 Type 2 diabetes mellitus without complications; I10 Essential (primary) hypertension; E66.9 Obesity, unspecified; Z86.16 Personal history of COVID-19; Z68.43 Body mass index [BMI] 50.0-59.9, adult; Z91.041 Radiographic dye allergy status; Z91.013 Allergy to seafood; Z88.2 Allergy status to sulfonamides; Z79.899 Other long term (current) drug therapy; Z20.822 Contact with and (suspected) exposure to COVID-19
CPT/HCPCS: 36415; 71045; 80053; 83735; 83880; 84484; 85025; 93005; 99285; A9270; J3490; U0002; J7620-GY

== ENCOUNTER 2022-10-01 21:08 | Emergency (ER) | payer MEDICARE, MEDICAID ==
[2022-10-01] MEDS ORDERED: Aspirin 81 MG Tab.Chew PO ONE (21:16)
[2022-10-01] MEDS ORDERED: Albuterol/Ipratropium 3.0-0.5 MG/3 ML Neb Soln NEB STA (21:44)
[2022-10-01 22:12] LABS: BLOOD UREA NITROGEN,BUN 19 mg/dL (7.0-18.0); CARBON DIOXIDE,CO2 30.4 mmol/L (21.0-32.0); CHLORIDE,CL 102 mmol/L (98-107); GLUCOSE RANDOM 138 mg/dL (74-106); POTASSIUM,K 3.8 mmol/L (3.5-5.1); SODIUM,NA 142 mmol/L (136-148)
[2022-10-01 22:14] LABS: ESTIMATED GFR 86 mL/min (>60)
[2022-10-01] MEDS ORDERED: Alum Hydro/Mag Hydro/Simeth XS 15 ML, Lidocaine 2% 5 ML PO ONE ×2 (22:27)
[2022-10-01] MEDS ORDERED: Famotidine 20 MG Tab PO ONE (22:28)
== END 2022-10-01 23:47 | disposition home or self-care (01) ==
LOC: MW.ED 21:08
DX: R07.9 Chest pain, unspecified (principal); I10 Essential (primary) hypertension; J45.909 Unspecified asthma, uncomplicated; E11.9 Type 2 diabetes mellitus without complications; E66.9 Obesity, unspecified; Z68.42 Body mass index [BMI] 45.0-49.9, adult; Z91.030 Bee allergy status; Z88.2 Allergy status to sulfonamides; Z88.8 Allergy status to other drugs, medicaments and biological substances; Z91.018 Allergy to other foods; Z91.013 Allergy to seafood; Z79.82 Long term (current) use of aspirin; Z79.899 Other long term (current) drug therapy
CPT/HCPCS: 36415; 71045; 71045-26; 80053; 83735; 84484; 85025; 85610; 93005; 93971-26-LT; 93971-LT; 99285; A9270-GY; J7620-GY

== ENCOUNTER 2023-01-03 10:54 | Emergency (ER) | payer MEDICARE, MEDICAID ==
[2023-01-03] MEDS ORDERED: Sodium Chloride 0.9% 2.5 ML Syringe FLUSH PRN (11:26)
[2023-01-03] MEDS ORDERED: Sodium Chloride 0.9% 10 ML Syringe FLUSH PRN (11:26)
[2023-01-03] MEDS ORDERED: diphenhydrAMINE 50 MG/ML SDV IVPUSH STA (11:36)
[2023-01-03] MEDS ORDERED: methylPREDNISolone Sodium Succinate 125 MG/2 ML SDV IVPUSH STA (11:36)
[2023-01-03 11:41] LABS: BASOPHILS PERCENT AUTO 0.1 % (0.0-1.5); EOSINOPHILS PERCENT AUTO 0.1 % (0.0-7.0); HEMATOCRIT 36.4 % (38.0-50.0); HEMOGLOBIN 11.3 g/dL (13.0-17.0); LYMPHOCYTES ABSOLUTE AUTO 1.3 K/uL (0.6-2.4); LYMPHOCYTES PERCENT AUTO 11.7 % (16.0-40.0); MEAN CORPUSCULAR VOLUME 83.9 fL (80.0-98.0); MONOCYTES ABSOLUTE AUTO 0.7 K/uL (0.0-0.8); MONOCYTES PERCENT AUTO 6.3 % (0.0-15.0); NEUTROPHILS ABSOLUTE AUTO 9.3 K/uL (1.4-5.7); NEUTROPHILS PERCENT AUTO 81.8 % (48.0-80.0); NRBC ABSOLUTE 0 K/uL; PLATELET COUNT,PLT 269 K/uL (150-400); RED BLOOD CELL COUNT 4.34 M/uL (4.50-5.90); WHITE BLOOD CELL COUNT,WBC 11.32 K/uL (4.0-11.0)
[2023-01-03] MEDS ORDERED: Ampicillin/Sulbactam Na 3 GM in Sodium Chloride 0.9% 50 ML IV STA (11:46)
[2023-01-03] MEDS ORDERED: Morphine 4 MG/ML Syringe IVPUSH STA ×2 (11:48→14:21)
[2023-01-03] MEDS ORDERED: Sodium Chloride 0.9% 1,000 ML IV STA ×2 (11:48→16:40)
[2023-01-03 11:52] LABS: INR 1.31 (0.86-1.11)
[2023-01-03] MEDS ORDERED: VANCOmycin 2 GM/400 ML 2 GM in Premix Bag 1 BAG IV ONE (12:00)
[2023-01-03 12:07] LABS: A/G RATIO 0.7 (0.9-1.6); ALBUMIN 3.1 g/dL (3.4-5.0); BILIRUBIN TOTAL 0.3 mg/dL (0.2-1.0); CALCIUM 9.2 mg/dL (8.5-10.1); CARBON DIOXIDE,CO2 28.5 mmol/L (21.0-32.0); CREATININE 1.4 mg/dL (0.8-1.3); EST CRCL DRUG DOSING (CG) 56.11 mL/min; POTASSIUM,K 3.5 mmol/L (3.5-5.1); PROTEIN TOTAL,TP 7.8 g/dL (6.4-8.2)
[2023-01-03 12:23] LABS: LACTIC ACID 1.3 mmol/L (0.4-2.0)
[2023-01-03] MEDS ORDERED: Iopamidol 755 MG/ML 500 ML Multipack Bottle IVPUSH ONE (12:59)
[2023-01-03 14:51] LABS: CORONAVIRUS COVID-19 NAA NEGATIVE (NEGATIVE); INFLUENZA A NAA NEGATIVE (NEGATIVE); INFLUENZA B NAA NEGATIVE (NEGATIVE); RESPIRATORY SYNCYTIAL VIR NAA NEGATIVE (NEGATIVE)
[2023-01-03] MEDS ORDERED: HYDROmorphone 1 MG/ML Syringe IVPUSH STA ×2 (15:28→18:03)
== END 2023-01-03 18:30 ==
LOC: MW.ED 10:54
DX: K11.3 Abscess of salivary gland (principal); K12.2 Cellulitis and abscess of mouth; I10 Essential (primary) hypertension; J45.909 Unspecified asthma, uncomplicated; M10.9 Gout, unspecified; E11.9 Type 2 diabetes mellitus without complications; E66.9 Obesity, unspecified; Z68.42 Body mass index [BMI] 45.0-49.9, adult; Z86.16 Personal history of COVID-19; Z91.041 Radiographic dye allergy status; Z91.030 Bee allergy status; Z88.2 Allergy status to sulfonamides; Z91.013 Allergy to seafood; Z79.899 Other long term (current) drug therapy; Z79.82 Long term (current) use of aspirin; Z79.01 Long term (current) use of anticoagulants; Z20.822 Contact with and (suspected) exposure to COVID-19
CPT/HCPCS: 0241U; 36415; 70491; 80053; 83605; 85025; 85610; 87040; 96361; 96365; 96366; 96367; 96375; 96376; 99284; J0295; J1170; J1200; J2270; J2930; J3370; J3490; J7030; Q9967

== ENCOUNTER 2023-02-21 09:04 | Inpatient (IN) | payer MEDICARE, MEDICAID ==
[2023-02-21] MEDS ORDERED: Sodium Chloride 0.9% 2.5 ML Syringe FLUSH PRN ×2 (09:16→13:34)
[2023-02-21] MEDS ORDERED: Sodium Chloride 0.9% 10 ML Syringe FLUSH PRN ×2 (09:16→13:34)
[2023-02-21] MEDS ORDERED: Diltiazem 25 MG/5 ML SDV IVPUSH ONE ×2 (09:23→10:50)
[2023-02-21 09:36] LABS: BASOPHILS PERCENT AUTO 0.2 % (0.0-1.5); EOSINOPHILS PERCENT AUTO 0.5 % (0.0-7.0); HEMATOCRIT 28.2 % (38.0-50.0); HEMOGLOBIN 8.8 g/dL (13.0-17.0); LYMPHOCYTES ABSOLUTE AUTO 1.1 K/uL (0.6-2.4); LYMPHOCYTES PERCENT AUTO 17.1 % (16.0-40.0); MEAN CORPUSCULAR HEMOGLOBIN 26.7 pg (27.0-32.0); MEAN CORPUSCULAR HGB CONC 31.2 g/dL (31.0-37.0); MEAN CORPUSCULAR VOLUME 85.7 fL (80.0-98.0); MONOCYTES ABSOLUTE AUTO 0.7 K/uL (0.0-0.8); MONOCYTES PERCENT AUTO 10.6 % (0.0-15.0); NEUTROPHILS ABSOLUTE AUTO 4.4 K/uL (1.4-5.7); NEUTROPHILS PERCENT AUTO 71.6 % (48.0-80.0); PLATELET COUNT,PLT 287 K/uL (150-400); RED BLOOD CELL COUNT 3.29 M/uL (4.50-5.90); WHITE BLOOD CELL COUNT,WBC 6.15 K/uL (4.0-11.0)
[2023-02-21] MEDS ORDERED: Diltiazem 100 MG in Sodium Chloride 0.9% 100 ML IV SCH (09:45)
[2023-02-21 10:07] LABS: A/G RATIO 0.7 (0.9-1.6); ALBUMIN 2.9 g/dL (3.4-5.0); BILIRUBIN TOTAL 0.4 mg/dL (0.2-1.0); CALCIUM 8.7 mg/dL (8.5-10.1); CARBON DIOXIDE,CO2 26.8 mmol/L (21.0-32.0); CREATININE 1.2 mg/dL (0.8-1.3); EST CRCL DRUG DOSING (CG) 65.46 mL/min; POTASSIUM,K 3.5 mmol/L (3.5-5.1); PROTEIN TOTAL,TP 6.9 g/dL (6.4-8.2); TSH ULTRASENSITIVE 0.67 uIU/mL (0.36-3.74)
[2023-02-21 10:13] LABS: CORONAVIRUS COVID-19 NAA NEGATIVE (NEGATIVE); INFLUENZA A NAA NEGATIVE (NEGATIVE); INFLUENZA B NAA NEGATIVE (NEGATIVE); RESPIRATORY SYNCYTIAL VIR NAA NEGATIVE (NEGATIVE)
[2023-02-21 10:14] LABS: INR 1.44 (0.86-1.11)
[2023-02-21 10:26] LABS: BILIRUBIN,URINE NEGATIVE (NEGATIVE); COLOR,URINE YELLOW; GLUCOSE,URINE NEGATIVE (NEGATIVE); KETONES,URINE NEGATIVE (NEGATIVE); LEUKOCYTE ESTERASE,URINE SMALL (NEGATIVE); NITRITE,URINE POSITIVE (NEGATIVE); OCCULT BLOOD,URINE TRACE-INTACT (NEGATIVE); PROTEIN,URINE 30 mg/dL (NEGATIVE); UROBILINOGEN,URINE 0.2 EU/dL (<2.0)
[2023-02-21 10:35] LABS: APPEARANCE,URINE SLT CLOUDY; BACTERIA,URINE 3+ (NEGATIVE); EPITHELIAL CELLS,URINE FEW (NONE-FEW); HYALINE CASTS,URINE 0-2 (0-2/LPF); MUCUS,URINE LIGHT (NONE-MOD); WBC,URINE 20-30 (0-5/HPF)
[2023-02-21] MEDS ORDERED: Sodium Chloride 0.9% 500 ML IV SCH (10:45)
[2023-02-21] MEDS ORDERED: Furosemide 40 MG/4 ML VIAL IVPUSH ONE ×2 (12:16→20:00)
[2023-02-21] MEDS ORDERED: Magnesium Sulfate/Water 2 GM in Premix Bag 1 BAG IV ONE (13:34)
[2023-02-21] MEDS ORDERED: Acetaminophen 325 MG Tab PO PRN (13:34)
[2023-02-21] MEDS ORDERED: Ondansetron 4 MG/2 ML SDV IVPUSH PRN (13:34)
[2023-02-21] MEDS ORDERED: Potassium Chloride 20 MEQ Tab.ER PO ONE (13:34)
[2023-02-21] MEDS ORDERED: Docusate Sodium 100 MG Cap PO PRN (13:34)
[2023-02-21] MEDS ORDERED: Polyethylene Glycol 3350 Powder 17 GM Packet PO PRN (13:34)
[2023-02-21] MEDS ORDERED: Furosemide 40 MG/4 ML VIAL IVPUSH SCH (14:00)
[2023-02-21] MEDS: Diltiazem 100 MG in Sodium Chloride 0.9% 100 ML IV SCH ×2 (14:29→19:12)
[2023-02-21] MEDS: cefTRIAXone 2 GM in Sodium Chloride 0.9% 50 ML IV SCH (14:34)
[2023-02-21] MEDS ORDERED: EPINEPHrine 1 MG/1 ML Amp IM PRN (17:00)
[2023-02-21] MEDS: Rivaroxaban 10 MG Tab PO SCH (18:08)
[2023-02-21] MEDS: atorvaSTATin 40 MG Tab PO SCH (20:08)
[2023-02-21] MEDS: Carboxymethylcellulose Sodium 0.5% Ophth Soln 0.4 ML UD Box of 30 EYEBOTH SCH (20:09)
[2023-02-21] MEDS: carBAMazepine 200 MG Tab PO SCH (20:10)
[2023-02-21] MEDS: Fluticasone/Salmeterol 250-50 MCG Inhalation Powder 14/Diskus INH SCH (20:12)
[2023-02-21] MEDS: risperiDONE 0.25 MG Tab PO SCH (20:17)
[2023-02-21] MEDS: traZODone 50 MG Tab PO SCH (20:18)
[2023-02-21] MEDS ORDERED: Sodium Chloride 0.9% 100 ML ONE (23:45)
[2023-02-22] MEDS: Diltiazem 100 MG in Sodium Chloride 0.9% 100 ML IV SCH ×3 (03:19→19:40)
[2023-02-22 06:10] LABS: BASOPHILS PERCENT AUTO 0.2 % (0.0-1.5); EOSINOPHILS ABSOLUTE AUTO 0.1 K/uL (0.0-0.7); EOSINOPHILS PERCENT AUTO 1.2 % (0.0-7.0); HEMOGLOBIN 8.2 g/dL (13.0-17.0); LYMPHOCYTES ABSOLUTE AUTO 0.9 K/uL (0.6-2.4); LYMPHOCYTES PERCENT AUTO 15.7 % (16.0-40.0); MEAN CORPUSCULAR HEMOGLOBIN 26.5 pg (27.0-32.0); MEAN CORPUSCULAR HGB CONC 30.4 g/dL (31.0-37.0); MEAN CORPUSCULAR VOLUME 87.1 fL (80.0-98.0); MONOCYTES ABSOLUTE AUTO 0.7 K/uL (0.0-0.8); MONOCYTES PERCENT AUTO 12.1 % (0.0-15.0); NEUTROPHILS ABSOLUTE AUTO 4.2 K/uL (1.4-5.7); NEUTROPHILS PERCENT AUTO 70.8 % (48.0-80.0); PLATELET COUNT,PLT 266 K/uL (150-400); WHITE BLOOD CELL COUNT,WBC 5.87 K/uL (4.0-11.0)
[2023-02-22 06:28] LABS: PERCENT FE SATURATION 6.85 % (20-55); TRANSFERRIN 235.2
[2023-02-22 06:31] LABS: CALCIUM 8.5 mg/dL (8.5-10.1); CARBON DIOXIDE,CO2 32.1 mmol/L (21.0-32.0); CREATININE 1.1 mg/dL (0.8-1.3); EST CRCL DRUG DOSING (CG) 71.41 mL/min; FOLIC ACID 17.3 ng/mL (8.60-58.90); MAGNESIUM 1.8 mg/dL (1.8-2.4); POTASSIUM,K 3.6 mmol/L (3.5-5.1)
[2023-02-22] MEDS: Allopurinol 100 MG Tab PO SCH (08:06)
[2023-02-22] MEDS: Furosemide 40 MG/4 ML VIAL IVPUSH SCH ×2 (08:06→13:36)
[2023-02-22] MEDS: Aspirin 81 MG Tab.EC PO SCH (08:06)
[2023-02-22] MEDS: Sertraline 100 MG Tab PO SCH (08:06)
[2023-02-22] MEDS: Fluticasone/Salmeterol 250-50 MCG Inhalation Powder 14/Diskus INH SCH ×2 (08:07→20:31)
[2023-02-22] MEDS: Carboxymethylcellulose Sodium 0.5% Ophth Soln 0.4 ML UD Box of 30 EYEBOTH SCH ×2 (08:07→20:30)
[2023-02-22] MEDS: carBAMazepine 200 MG Tab PO SCH ×2 (08:08→20:37)
[2023-02-22] MEDS: Liraglutide [Victoza] 18 MG/3 ML Pen SUBCUT SCH ×2 (10:07→11:50)
[2023-02-22] MEDS ORDERED: Sodium Ferric Gluconate Cmplex 125 MG in Sodium Chloride 0.9% 100 ML IV ONE (11:41)
[2023-02-22] MEDS: cefTRIAXone 2 GM in Sodium Chloride 0.9% 50 ML IV SCH (13:37)
[2023-02-22] MEDS: Rivaroxaban 10 MG Tab PO SCH (17:24)
[2023-02-22] MEDS: atorvaSTATin 40 MG Tab PO SCH (20:30)
[2023-02-22] MEDS: traZODone 50 MG Tab PO SCH (20:31)
[2023-02-22] MEDS: risperiDONE 0.25 MG Tab PO SCH (20:31)
[2023-02-23] MEDS: Diltiazem 100 MG in Sodium Chloride 0.9% 100 ML IV SCH ×3 (01:28→11:55)
[2023-02-23 06:03] LABS: BASOPHILS PERCENT AUTO 0.4 % (0.0-1.5); EOSINOPHILS ABSOLUTE AUTO 0.1 K/uL (0.0-0.7); EOSINOPHILS PERCENT AUTO 1.4 % (0.0-7.0); HEMATOCRIT 26.8 % (38.0-50.0); HEMOGLOBIN 8.3 g/dL (13.0-17.0); LYMPHOCYTES ABSOLUTE AUTO 0.9 K/uL (0.6-2.4); LYMPHOCYTES PERCENT AUTO 16.9 % (16.0-40.0); MEAN CORPUSCULAR HEMOGLOBIN 26.9 pg (27.0-32.0); MEAN CORPUSCULAR VOLUME 86.7 fL (80.0-98.0); MONOCYTES ABSOLUTE AUTO 0.7 K/uL (0.0-0.8); MONOCYTES PERCENT AUTO 13.3 % (0.0-15.0); NEUTROPHILS ABSOLUTE AUTO 3.8 K/uL (1.4-5.7); PLATELET COUNT,PLT 258 K/uL (150-400); RED BLOOD CELL COUNT 3.09 M/uL (4.50-5.90); WHITE BLOOD CELL COUNT,WBC 5.55 K/uL (4.0-11.0)
[2023-02-23 06:18] LABS: ALBUMIN 2.6 g/dL (3.4-5.0); BILIRUBIN TOTAL 0.3 mg/dL (0.2-1.0); CALCIUM 8.4 mg/dL (8.5-10.1); CARBON DIOXIDE,CO2 32.8 mmol/L (21.0-32.0); CREATININE 1.1 mg/dL (0.8-1.3); EST CRCL DRUG DOSING (CG) 71.41 mL/min; MAGNESIUM 1.8 mg/dL (1.8-2.4); POTASSIUM,K 3.4 mmol/L (3.5-5.1); PROTEIN TOTAL,TP 6.6 g/dL (6.4-8.2)
[2023-02-23 06:21] LABS: A/G RATIO 0.7 (0.9-1.6)
[2023-02-23] MEDS: carBAMazepine 200 MG Tab PO SCH ×2 (08:06→21:02)
[2023-02-23] MEDS: Furosemide 40 MG/4 ML VIAL IVPUSH SCH ×2 (08:08→15:01)
[2023-02-23] MEDS: Allopurinol 100 MG Tab PO SCH (08:08)
[2023-02-23] MEDS: Sertraline 100 MG Tab PO SCH (08:08)
[2023-02-23] MEDS: Fluticasone/Salmeterol 250-50 MCG Inhalation Powder 14/Diskus INH SCH ×2 (08:08→21:00)
[2023-02-23] MEDS: Aspirin 81 MG Tab.EC PO SCH (08:08)
[2023-02-23] MEDS: Carboxymethylcellulose Sodium 0.5% Ophth Soln 0.4 ML UD Box of 30 EYEBOTH SCH ×2 (08:09→21:02)
[2023-02-23] MEDS: Liraglutide [Victoza] 18 MG/3 ML Pen SUBCUT SCH (08:09)
[2023-02-23] MEDS ORDERED: Magnesium Sulfate/Water 2 GM in Premix Bag 1 BAG IV ONE (10:07)
[2023-02-23] MEDS: Piperacillin/Tazobactam 3.375 GM in Sodium Chloride 0.9% 100 ML IV SCH ×3 (10:39→21:18)
[2023-02-23] MEDS: Potassium Chloride 20 MEQ Tab.ER PO SCH ×2 (10:39→21:04)
[2023-02-23] MEDS ORDERED: Sodium Ferric Gluconate Cmplex 125 MG in Sodium Chloride 0.9% 100 ML IV ONE ×2 (13:00→15:45)
[2023-02-23] MEDS: Metoprolol Succinate 100 MG Tab.ER PO SCH (13:02)
[2023-02-23] MEDS: Diltiazem 120 MG Cap.CD PO SCH (15:55)
[2023-02-23] MEDS: Rivaroxaban 10 MG Tab PO SCH (17:31)
[2023-02-23] MEDS ORDERED: Diltiazem 100 MG in Sodium Chloride 0.9% 100 ML IV SCH ×2 (17:53→18:30)
[2023-02-23] MEDS: atorvaSTATin 40 MG Tab PO SCH (21:03)
[2023-02-23] MEDS: risperiDONE 0.25 MG Tab PO SCH (21:03)
[2023-02-23] MEDS: traZODone 50 MG Tab PO SCH (21:04)
[2023-02-23] MEDS: Diltiazem 25 MG/5 ML SDV IVPUSH PRN (22:35)
[2023-02-24] MEDS: Diltiazem 25 MG/5 ML SDV IVPUSH PRN ×2 (04:27→17:45)
[2023-02-24] MEDS: Piperacillin/Tazobactam 3.375 GM in Sodium Chloride 0.9% 100 ML IV SCH (04:28)
[2023-02-24 05:44] LABS: HEMATOCRIT 26.8 % (38.0-50.0); HEMOGLOBIN 8.2 g/dL (13.0-17.0); MEAN CORPUSCULAR HEMOGLOBIN 26.5 pg (27.0-32.0); MEAN CORPUSCULAR HGB CONC 30.6 g/dL (31.0-37.0); MEAN CORPUSCULAR VOLUME 86.7 fL (80.0-98.0); PLATELET COUNT,PLT 272 K/uL (150-400); RED BLOOD CELL COUNT 3.09 M/uL (4.50-5.90); WHITE BLOOD CELL COUNT,WBC 5.74 K/uL (4.0-11.0)
[2023-02-24 06:06] LABS: ALBUMIN 2.6 g/dL (3.4-5.0); BILIRUBIN TOTAL 0.3 mg/dL (0.2-1.0); CALCIUM 8.3 mg/dL (8.5-10.1); CARBON DIOXIDE,CO2 31.9 mmol/L (21.0-32.0); CREATININE 1.2 mg/dL (0.8-1.3); EST CRCL DRUG DOSING (CG) 65.46 mL/min; MAGNESIUM 2.2 mg/dL (1.8-2.4); POTASSIUM,K 3.9 mmol/L (3.5-5.1); PROTEIN TOTAL,TP 6.6 g/dL (6.4-8.2)
[2023-02-24 06:08] LABS: A/G RATIO 0.7 (0.9-1.6)
[2023-02-24] MEDS: Fluticasone/Salmeterol 250-50 MCG Inhalation Powder 14/Diskus INH SCH ×2 (08:03→21:32)
[2023-02-24] MEDS: Metoprolol Succinate 100 MG Tab.ER PO SCH (08:04)
[2023-02-24] MEDS: Diltiazem 120 MG Cap.CD PO SCH (08:05)
[2023-02-24] MEDS: Aspirin 81 MG Tab.EC PO SCH (08:06)
[2023-02-24] MEDS: Sertraline 100 MG Tab PO SCH (08:07)
[2023-02-24] MEDS: Allopurinol 100 MG Tab PO SCH (08:07)
[2023-02-24] MEDS: Furosemide 40 MG/4 ML VIAL IVPUSH SCH ×2 (08:09→15:14)
[2023-02-24] MEDS: Potassium Chloride 20 MEQ Tab.ER PO SCH (08:11)
[2023-02-24] MEDS: Carboxymethylcellulose Sodium 0.5% Ophth Soln 0.4 ML UD Box of 30 EYEBOTH SCH ×2 (08:13→23:51)
[2023-02-24] MEDS: Liraglutide [Victoza] 18 MG/3 ML Pen SUBCUT SCH (08:22)
[2023-02-24] MEDS: Iron Polysaccharides Complex 150 MG Cap PO SCH (08:32)
[2023-02-24] MEDS: Levofloxacin/Dextrose 5%-Water 500 MG in Premix Bag 1 BAG IV SCH (08:32)
[2023-02-24] MEDS ORDERED: Diltiazem 120 MG Cap.CD PO SCH (09:00)
[2023-02-24] MEDS: carBAMazepine 200 MG Tab PO SCH ×2 (09:10→21:31)
[2023-02-24] MEDS ORDERED: Diltiazem 120 MG Cap.CD PO ONE (09:55)
[2023-02-24] MEDS: Rivaroxaban 10 MG Tab PO SCH (17:52)
[2023-02-24] MEDS: atorvaSTATin 40 MG Tab PO SCH (21:29)
[2023-02-24] MEDS: risperiDONE 0.25 MG Tab PO SCH (21:29)
[2023-02-24] MEDS: traZODone 50 MG Tab PO SCH (21:29)
[2023-02-25] MEDS: Diltiazem 25 MG/5 ML SDV IVPUSH PRN (02:15)
[2023-02-25 06:04] LABS: HEMATOCRIT 29.3 % (38.0-50.0); HEMOGLOBIN 8.9 g/dL (13.0-17.0); MEAN CORPUSCULAR HEMOGLOBIN 26.6 pg (27.0-32.0); MEAN CORPUSCULAR HGB CONC 30.4 g/dL (31.0-37.0); MEAN CORPUSCULAR VOLUME 87.7 fL (80.0-98.0); PLATELET COUNT,PLT 283 K/uL (150-400); RED BLOOD CELL COUNT 3.34 M/uL (4.50-5.90)
[2023-02-25 06:24] LABS: A/G RATIO 0.7 (0.9-1.6); ALBUMIN 2.8 g/dL (3.4-5.0); BILIRUBIN TOTAL 0.3 mg/dL (0.2-1.0); CALCIUM 8.8 mg/dL (8.5-10.1); CARBON DIOXIDE,CO2 32.3 mmol/L (21.0-32.0); CREATININE 1.1 mg/dL (0.8-1.3); EST CRCL DRUG DOSING (CG) 71.41 mL/min; MAGNESIUM 2.1 mg/dL (1.8-2.4); POTASSIUM,K 3.8 mmol/L (3.5-5.1); PROTEIN TOTAL,TP 7.1 g/dL (6.4-8.2)
[2023-02-25] MEDS: Carboxymethylcellulose Sodium 0.5% Ophth Soln 0.4 ML UD Box of 30 EYEBOTH SCH ×2 (08:46→20:24)
[2023-02-25] MEDS: Metoprolol Succinate 100 MG Tab.ER PO SCH (08:47)
[2023-02-25] MEDS: Allopurinol 100 MG Tab PO SCH (08:49)
[2023-02-25] MEDS: Sertraline 100 MG Tab PO SCH (08:49)
[2023-02-25] MEDS: Iron Polysaccharides Complex 150 MG Cap PO SCH (08:49)
[2023-02-25] MEDS: Aspirin 81 MG Tab.EC PO SCH (08:49)
[2023-02-25] MEDS: Furosemide 40 MG/4 ML VIAL IVPUSH SCH ×2 (08:51→13:22)
[2023-02-25] MEDS: Fluticasone/Salmeterol 250-50 MCG Inhalation Powder 14/Diskus INH SCH ×2 (09:00→20:25)
[2023-02-25] MEDS ORDERED: Diltiazem 120 MG Cap.CD PO SCH (09:00)
[2023-02-25] MEDS: Liraglutide [Victoza] 18 MG/3 ML Pen SUBCUT SCH (09:01)
[2023-02-25] MEDS: carBAMazepine 200 MG Tab PO SCH ×2 (09:03→20:23)
[2023-02-25] MEDS: Levofloxacin/Dextrose 5%-Water 500 MG in Premix Bag 1 BAG IV SCH (09:10)
[2023-02-25] MEDS ORDERED: Metoprolol Tartrate 50 MG Tab PO ONE ×2 (09:42→16:00)
[2023-02-25] MEDS ORDERED: Potassium Chloride 20 MEQ Tab.ER PO ONE (10:53)
[2023-02-25] MEDS ORDERED: Digoxin 500 MCG/2 ML Amp IVPUSH ONE (15:42)
[2023-02-25] MEDS: Rivaroxaban 10 MG Tab PO SCH (16:47)
[2023-02-25] MEDS: traZODone 50 MG Tab PO SCH (20:22)
[2023-02-25] MEDS: atorvaSTATin 40 MG Tab PO SCH (20:22)
[2023-02-25] MEDS: risperiDONE 0.25 MG Tab PO SCH (20:22)
[2023-02-25] MEDS: Digoxin 500 MCG/2 ML Amp IVPUSH SCH (21:19)
[2023-02-26] MEDS: Digoxin 500 MCG/2 ML Amp IVPUSH SCH (03:35)
[2023-02-26 06:27] LABS: HEMATOCRIT 27.4 % (38.0-50.0); HEMOGLOBIN 8.5 g/dL (13.0-17.0); PLATELET COUNT,PLT 280 K/uL (150-400); RED BLOOD CELL COUNT 3.15 M/uL (4.50-5.90); WHITE BLOOD CELL COUNT,WBC 7.04 K/uL (4.0-11.0)
[2023-02-26 07:13] LABS: A/G RATIO 0.7 (0.9-1.6); ALBUMIN 2.7 g/dL (3.4-5.0); BILIRUBIN TOTAL 0.3 mg/dL (0.2-1.0); CARBON DIOXIDE,CO2 30.2 mmol/L (21.0-32.0); CREATININE 1.1 mg/dL (0.8-1.3); EST CRCL DRUG DOSING (CG) 71.41 mL/min; MAGNESIUM 2.1 mg/dL (1.8-2.4); POTASSIUM,K 3.9 mmol/L (3.5-5.1); PROTEIN TOTAL,TP 6.5 g/dL (6.4-8.2)
[2023-02-26] MEDS ORDERED: Potassium Chloride 20 MEQ Tab.ER PO ONE (07:57)
[2023-02-26] MEDS: Furosemide 40 MG/4 ML VIAL IVPUSH SCH ×3 (08:30→21:28)
[2023-02-26] MEDS: Levofloxacin/Dextrose 5%-Water 500 MG in Premix Bag 1 BAG IV SCH (08:31)
[2023-02-26] MEDS: Metoprolol Succinate 100 MG Tab.ER PO SCH (09:32)
[2023-02-26] MEDS: Diltiazem 180 MG Cap.CD PO SCH (09:37)
[2023-02-26] MEDS: Iron Polysaccharides Complex 150 MG Cap PO SCH (09:37)
[2023-02-26] MEDS: Allopurinol 100 MG Tab PO SCH (09:38)
[2023-02-26] MEDS: Aspirin 81 MG Tab.EC PO SCH (09:38)
[2023-02-26] MEDS: carBAMazepine 200 MG Tab PO SCH ×2 (09:39→20:20)
[2023-02-26] MEDS: Sertraline 100 MG Tab PO SCH (09:39)
[2023-02-26] MEDS: Fluticasone/Salmeterol 250-50 MCG Inhalation Powder 14/Diskus INH SCH ×2 (09:40→20:19)
[2023-02-26] MEDS: Carboxymethylcellulose Sodium 0.5% Ophth Soln 0.4 ML UD Box of 30 EYEBOTH SCH ×2 (09:43→20:19)
[2023-02-26] MEDS ORDERED: Digoxin 500 MCG/2 ML Amp IVPUSH ONE (09:47)
[2023-02-26] MEDS: Liraglutide [Victoza] 18 MG/3 ML Pen SUBCUT SCH (09:47)
[2023-02-26] MEDS: Rivaroxaban 10 MG Tab PO SCH (17:12)
[2023-02-26] MEDS: risperiDONE 0.25 MG Tab PO SCH (20:19)
[2023-02-26] MEDS: atorvaSTATin 40 MG Tab PO SCH (20:19)
[2023-02-26] MEDS: traZODone 50 MG Tab PO SCH (20:19)
[2023-02-27] MEDS: Furosemide 40 MG/4 ML VIAL IVPUSH SCH ×2 (06:22→15:12)
[2023-02-27 07:07] LABS: BASOPHILS PERCENT AUTO 0.3 % (0.0-1.5); EOSINOPHILS ABSOLUTE AUTO 0.1 K/uL (0.0-0.7); EOSINOPHILS PERCENT AUTO 1.2 % (0.0-7.0); HEMATOCRIT 30.3 % (38.0-50.0); HEMOGLOBIN 9.2 g/dL (13.0-17.0); LYMPHOCYTES ABSOLUTE AUTO 1.3 K/uL (0.6-2.4); LYMPHOCYTES PERCENT AUTO 22.3 % (16.0-40.0); MEAN CORPUSCULAR HEMOGLOBIN 26.1 pg (27.0-32.0); MEAN CORPUSCULAR HGB CONC 30.4 g/dL (31.0-37.0); MEAN CORPUSCULAR VOLUME 85.8 fL (80.0-98.0); MONOCYTES ABSOLUTE AUTO 0.5 K/uL (0.0-0.8); MONOCYTES PERCENT AUTO 8.9 % (0.0-15.0); NEUTROPHILS ABSOLUTE AUTO 3.9 K/uL (1.4-5.7); NEUTROPHILS PERCENT AUTO 67.3 % (48.0-80.0); NRBC ABSOLUTE 0 K/uL; PLATELET COUNT,PLT 286 K/uL (150-400); RED BLOOD CELL COUNT 3.53 M/uL (4.50-5.90); WHITE BLOOD CELL COUNT,WBC 5.73 K/uL (4.0-11.0)
[2023-02-27 07:32] LABS: CARBON DIOXIDE,CO2 31.2 mmol/L (21.0-32.0); CREATININE 1.2 mg/dL (0.8-1.3); EST CRCL DRUG DOSING (CG) 65.46 mL/min; MAGNESIUM 1.9 mg/dL (1.8-2.4); POTASSIUM,K 3.7 mmol/L (3.5-5.1)
[2023-02-27] MEDS ORDERED: Levofloxacin 500 MG Tab PO SCH (08:00)
[2023-02-27] MEDS ORDERED: Digoxin 250 MCG Tab PO SCH (09:00)
[2023-02-27] MEDS: Metoprolol Succinate 100 MG Tab.ER PO SCH (10:17)
[2023-02-27] MEDS: Sertraline 100 MG Tab PO SCH (10:18)
[2023-02-27] MEDS: carBAMazepine 200 MG Tab PO SCH (10:19)
[2023-02-27] MEDS: Aspirin 81 MG Tab.EC PO SCH (10:22)
[2023-02-27] MEDS: Allopurinol 100 MG Tab PO SCH (10:22)
[2023-02-27] MEDS: Diltiazem 180 MG Cap.CD PO SCH (10:24)
[2023-02-27] MEDS: Fluticasone/Salmeterol 250-50 MCG Inhalation Powder 14/Diskus INH SCH (10:25)
[2023-02-27] MEDS: Iron Polysaccharides Complex 150 MG Cap PO SCH (10:27)
[2023-02-27] MEDS: Liraglutide [Victoza] 18 MG/3 ML Pen SUBCUT SCH (10:36)
[2023-02-27] MEDS: Carboxymethylcellulose Sodium 0.5% Ophth Soln 0.4 ML UD Box of 30 EYEBOTH SCH (10:38)
== END 2023-02-27 13:45 | disposition home or self-care (01) | DRG 308 ==
LOC: MW.ED 09:04 → MW.ICU 12:16 → MW.MS 02-24 13:52
PROVIDERS: ADMIT Family Medicine; ATTEND Family Medicine
DX: I48.0 Paroxysmal atrial fibrillation (principal); I50.31 Acute diastolic (congestive) heart failure; N30.01 Acute cystitis with hematuria; Z68.43 Body mass index [BMI] 50.0-59.9, adult; I11.0 Hypertensive heart disease with heart failure; I48.91 Unspecified atrial fibrillation; E66.01 Morbid (severe) obesity due to excess calories; D64.9 Anemia, unspecified; K59.09 Other constipation; E86.0 Dehydration; Z20.822 Contact with and (suspected) exposure to COVID-19; F60.9 Personality disorder, unspecified; J45.20 Mild intermittent asthma, uncomplicated; F91.9 Conduct disorder, unspecified; M15.9 Polyosteoarthritis, unspecified; M10.9 Gout, unspecified; B96.89 Other specified bacterial agents as the cause of diseases classified elsewhere; I27.20 Pulmonary hypertension, unspecified; I08.1 Rheumatic disorders of both mitral and tricuspid valves; I10 Essential (primary) hypertension; E11.9 Type 2 diabetes mellitus without complications; Z91.030 Bee allergy status; Z91.013 Allergy to seafood; Z91.048 Other nonmedicinal substance allergy status; Z88.2 Allergy status to sulfonamides; F79 Unspecified intellectual disabilities; Z79.01 Long term (current) use of anticoagulants; Z79.82 Long term (current) use of aspirin; Z86.16 Personal history of COVID-19; Z98.890 Other specified postprocedural states; Z79.84 Long term (current) use of oral hypoglycemic drugs; Z79.899 Other long term (current) drug therapy; Z86.718 Personal history of other venous thrombosis and embolism
CPT/HCPCS: 0241U; 36415; 71045; 80048; 80053; 81001; 82728; 82746; 82947; 83550; 83605; 83735; 83880; 84443; 84484; 85025; 85027; 85046; 85610; 87040; 87086; 87088; 87186; 87651; 93005; 93306; 96365; 96366; 96375; 96376; 97161; 99285; 93010; 99223; 99232; 99239; A9270-GY; J0696; J1160; J1940; J1956; J2543; J2916; J3475; J3490; J7040

== ENCOUNTER 2023-06-19 10:48 | Emergency (ER) | payer MEDICARE, MEDICAID ==
[2023-06-19] MEDS ORDERED: Sodium Chloride 0.9% 2.5 ML Syringe FLUSH PRN (11:06)
[2023-06-19] MEDS ORDERED: Sodium Chloride 0.9% 10 ML Syringe FLUSH PRN (11:06)
[2023-06-19 11:40] LABS: BASOPHILS ABSOLUTE AUTO 0.03 K/uL (0.00-0.20); BASOPHILS PERCENT AUTO 0.3 % (0.0-1.0); EOSINOPHILS ABSOLUTE AUTO 0.03 K/uL (0.00-0.45); EOSINOPHILS PERCENT AUTO 0.3 % (0.0-6.0); HEMATOCRIT 35.6 % (42.0-52.0); HEMOGLOBIN 11.3 g/dL (14.0-18.0); IMMATURE GRAN ABSOLUTE AUTO 0.05 K/uL (0.00-0.05); IMMATURE GRAN PERCENT AUTO 0.5 % (0.0-0.4); LYMPHOCYTES ABSOLUTE AUTO 1.38 K/uL (1.00-4.80); LYMPHOCYTES PERCENT AUTO 13.1 % (24.0-44.0); MEAN CORPUSCULAR HEMOGLOBIN 25.8 pg (28.0-32.0); MEAN CORPUSCULAR HGB CONC 31.7 g/dL (32.0-36.0); MEAN CORPUSCULAR VOLUME 81.3 fL (83.0-99.0); MONOCYTES ABSOLUTE AUTO 0.64 K/uL (0.00-0.80); MONOCYTES PERCENT AUTO 6.1 % (0.0-8.0); NEUTROPHILS ABSOLUTE AUTO 8.44 K/uL (1.80-7.70); NEUTROPHILS PERCENT AUTO 79.7 % (41.0-71.0); PLATELET COUNT,PLT 287 K/uL (150-400); RED BLOOD CELL COUNT 4.38 M/uL (4.52-5.90); WHITE BLOOD CELL COUNT,WBC 10.57 K/uL (3.9-11.3)
[2023-06-19 11:58] LABS: INR 1.07 (0.86-1.11); PTT,PARTIAL THROMBOPLSTIN TIME 27.4 SEC (23.9-30.7)
[2023-06-19] MEDS ORDERED: Iopamidol 755 MG/ML 500 ML Multipack Bottle IVPUSH ONE (12:02)
[2023-06-19 12:14] LABS: A/G RATIO 0.7 (0.9-1.6); ALBUMIN 3.5 g/dL (3.4-5.0); BILIRUBIN TOTAL 0.2 mg/dL (0.2-1.0); CALCIUM 9.3 mg/dL (8.5-10.1); CARBON DIOXIDE,CO2 30.3 mmol/L (21.0-32.0); CREATININE 1.1 mg/dL (0.8-1.3); EST CRCL DRUG DOSING (CG) 71.41 mL/min; MAGNESIUM 1.8 mg/dL (1.8-2.4); POTASSIUM,K 3.9 mmol/L (3.5-5.1); PROTEIN TOTAL,TP 8.2 g/dL (6.4-8.2)
== END 2023-06-19 16:31 ==
LOC: MW.ED 10:48
DX: S36.039A Unspecified laceration of spleen, initial encounter (principal); R42 Dizziness and giddiness; E11.9 Type 2 diabetes mellitus without complications; I48.91 Unspecified atrial fibrillation; I10 Essential (primary) hypertension; Z86.16 Personal history of COVID-19; E66.9 Obesity, unspecified; Z68.41 Body mass index [BMI] 40.0-44.9, adult; Z91.030 Bee allergy status; Z88.2 Allergy status to sulfonamides; Z91.013 Allergy to seafood; Z79.82 Long term (current) use of aspirin; Z79.84 Long term (current) use of oral hypoglycemic drugs; Z79.01 Long term (current) use of anticoagulants; W18.30XA Fall on same level, unspecified, initial encounter
CPT/HCPCS: 36415; 70450; 71260; 72125; 72128; 72131; 74177; 80053; 83690; 83735; 83880; 84484; 85025; 85610; 85730; 93005; 99285; Q9967; 93010; 99291

== ENCOUNTER 2023-08-25 10:40 | Emergency (ER) | payer MEDICARE, MEDICAID ==
[2023-08-25] MEDS ORDERED: Sodium Chloride 0.9% 1,000 ML IV ONE (11:18)
[2023-08-25 12:07] LABS: BASOPHILS ABSOLUTE AUTO 0.02 K/uL (0.00-0.20); BASOPHILS PERCENT AUTO 0.2 % (0.0-1.0); EOSINOPHILS ABSOLUTE AUTO 0.03 K/uL (0.00-0.45); EOSINOPHILS PERCENT AUTO 0.3 % (0.0-6.0); HEMATOCRIT 37.3 % (42.0-52.0); HEMOGLOBIN 11.9 g/dL (14.0-18.0); IMMATURE GRAN ABSOLUTE AUTO 0.03 K/uL (0.00-0.05); IMMATURE GRAN PERCENT AUTO 0.3 % (0.0-0.4); LYMPHOCYTES ABSOLUTE AUTO 1.22 K/uL (1.00-4.80); LYMPHOCYTES PERCENT AUTO 14.2 % (24.0-44.0); MEAN CORPUSCULAR HEMOGLOBIN 27.5 pg (28.0-32.0); MEAN CORPUSCULAR HGB CONC 31.9 g/dL (32.0-36.0); MEAN CORPUSCULAR VOLUME 86.3 fL (83.0-99.0); MEAN PLATELET VOLUME 9.5 fL (9.4-12.4); MONOCYTES ABSOLUTE AUTO 0.81 K/uL (0.00-0.80); MONOCYTES PERCENT AUTO 9.4 % (0.0-8.0); NEUTROPHILS ABSOLUTE AUTO 6.51 K/uL (1.80-7.70); NEUTROPHILS PERCENT AUTO 75.6 % (41.0-71.0); PLATELET COUNT,PLT 210 K/uL (150-400); RED BLOOD CELL COUNT 4.32 M/uL (4.52-5.90); WHITE BLOOD CELL COUNT,WBC 8.62 K/uL (3.9-11.3)
[2023-08-25 12:25] LABS: CORONAVIRUS COVID-19 NAA NEGATIVE (NEGATIVE); INFLUENZA A NAA NEGATIVE (NEGATIVE); INFLUENZA B NAA NEGATIVE (NEGATIVE); RESPIRATORY SYNCYTIAL VIR NAA NEGATIVE (NEGATIVE)
[2023-08-25 12:54] LABS: A/G RATIO 0.8 (0.9-1.6); ALBUMIN 3.4 g/dL (3.4-5.0); BILIRUBIN TOTAL 0.2 mg/dL (0.2-1.0); CALCIUM 9.4 mg/dL (8.5-10.1); CARBON DIOXIDE,CO2 29.2 mmol/L (21.0-32.0); CREATININE 1.2 mg/dL (0.8-1.3); EST CRCL DRUG DOSING (CG) 68.85 mL/min; POTASSIUM,K 4.4 mmol/L (3.5-5.1); PROTEIN TOTAL,TP 7.9 g/dL (6.4-8.2)
[2023-08-25 16:18] LABS: APPEARANCE,URINE CLEAR; BILIRUBIN,URINE NEGATIVE (NEGATIVE); COLOR,URINE YELLOW; GLUCOSE,URINE NEGATIVE (NEGATIVE); KETONES,URINE NEGATIVE (NEGATIVE); LEUKOCYTE ESTERASE,URINE NEGATIVE (NEGATIVE); NITRITE,URINE NEGATIVE (NEGATIVE); OCCULT BLOOD,URINE NEGATIVE (NEGATIVE); PH,URINE 5.5 (5.0-8.0); PROTEIN,URINE TRACE mg/dL (NEGATIVE); UROBILINOGEN,URINE 0.2 EU/dL (<2.0)
[2023-08-25 16:24] LABS: EPITHELIAL CELLS,URINE OCCASIONAL (NONE-FEW); RBC,URINE 0-2 (0-2/HPF); WBC,URINE 0-1 (0-5/HPF)
[2023-08-25 16:25] LABS: BACTERIA,URINE FEW (NEGATIVE)
== END 2023-08-25 17:20 | disposition home or self-care (01) ==
LOC: MW.ED 10:40
DX: B34.9 Viral infection, unspecified (principal); R53.1 Weakness; I48.91 Unspecified atrial fibrillation; I10 Essential (primary) hypertension; E11.9 Type 2 diabetes mellitus without complications; E66.9 Obesity, unspecified; Z86.16 Personal history of COVID-19; Z79.82 Long term (current) use of aspirin; Z79.01 Long term (current) use of anticoagulants; Z79.899 Other long term (current) drug therapy; Z91.013 Allergy to seafood; Z91.030 Bee allergy status; Z91.018 Allergy to other foods; Z88.2 Allergy status to sulfonamides; Z91.041 Radiographic dye allergy status; Z20.822 Contact with and (suspected) exposure to COVID-19; Z68.39 Body mass index [BMI] 39.0-39.9, adult
CPT/HCPCS: 0241U; 36415; 51701; 70450; 71045; 80053; 81001; 84484; 85025; 93005; 96360; 99285; J7030; 93010; 99282

== ENCOUNTER 2024-01-02 16:06 | Emergency (ER) | payer MEDICARE, MEDICAID ==
[2024-01-02 16:47] LABS: BASOPHILS ABSOLUTE AUTO 0.02 K/uL (0.00-0.20); BASOPHILS PERCENT AUTO 0.2 % (0.0-1.0); EOSINOPHILS ABSOLUTE AUTO 0.08 K/uL (0.00-0.45); EOSINOPHILS PERCENT AUTO 0.8 % (0.0-6.0); HEMATOCRIT 35.3 % (42.0-52.0); HEMOGLOBIN 11.7 g/dL (14.0-18.0); IMMATURE GRAN ABSOLUTE AUTO 0.03 K/uL (0.00-0.05); IMMATURE GRAN PERCENT AUTO 0.3 % (0.0-0.4); LYMPHOCYTES ABSOLUTE AUTO 1.95 K/uL (1.00-4.80); LYMPHOCYTES PERCENT AUTO 20.7 % (24.0-44.0); MEAN CORPUSCULAR HEMOGLOBIN 30.8 pg (28.0-32.0); MEAN CORPUSCULAR HGB CONC 33.1 g/dL (32.0-36.0); MEAN CORPUSCULAR VOLUME 92.9 fL (83.0-99.0); MEAN PLATELET VOLUME 9.5 fL (9.4-12.4); MONOCYTES ABSOLUTE AUTO 0.94 K/uL (0.00-0.80); PLATELET COUNT,PLT 194 K/uL (150-400); WHITE BLOOD CELL COUNT,WBC 9.42 K/uL (3.9-11.3)
[2024-01-02 17:25] LABS: ALBUMIN 3.6 g/dL (3.4-5.0); BILIRUBIN TOTAL 0.5 mg/dL (0.2-1.0); CALCIUM 8.7 mg/dL (8.5-10.1); CARBON DIOXIDE,CO2 29.8 mmol/L (21.0-32.0); CREATININE 1.4 mg/dL (0.8-1.3); EST CRCL DRUG DOSING (CG) 55.41 mL/min; PROTEIN TOTAL,TP 7.3 g/dL (6.4-8.2)
== END 2024-01-02 18:42 | disposition home or self-care (01) ==
LOC: MW.ED 16:06
DX: Z01.31 Encounter for examination of blood pressure with abnormal findings (principal); Z71.1 Person with feared health complaint in whom no diagnosis is made; I48.91 Unspecified atrial fibrillation; I10 Essential (primary) hypertension; J45.909 Unspecified asthma, uncomplicated; E11.9 Type 2 diabetes mellitus without complications; Z91.041 Radiographic dye allergy status; Z91.030 Bee allergy status; Z88.2 Allergy status to sulfonamides; Z91.018 Allergy to other foods; Z91.013 Allergy to seafood; Z79.82 Long term (current) use of aspirin; Z79.899 Other long term (current) drug therapy; Z79.01 Long term (current) use of anticoagulants; Z79.84 Long term (current) use of oral hypoglycemic drugs; Z86.16 Personal history of COVID-19; Z90.49 Acquired absence of other specified parts of digestive tract
CPT/HCPCS: 36415; 80053; 84484; 85025; 93005; 93010; 99282; 99285

== ENCOUNTER 2024-01-06 16:17 | Emergency (ER) | payer MEDICARE, MEDICAID ==
[2024-01-06] MEDS: Sodium Chloride 0.9% 1,000 ML IV ONE (17:53)
[2024-01-06 18:20] LABS: BASOPHILS ABSOLUTE AUTO 0.02 K/uL (0.00-0.20); BASOPHILS PERCENT AUTO 0.2 % (0.0-1.0); EOSINOPHILS ABSOLUTE AUTO 0.07 K/uL (0.00-0.45); EOSINOPHILS PERCENT AUTO 0.8 % (0.0-6.0); HEMATOCRIT 37.5 % (42.0-52.0); HEMOGLOBIN 12.4 g/dL (14.0-18.0); IMMATURE GRAN ABSOLUTE AUTO 0.03 K/uL (0.00-0.05); IMMATURE GRAN PERCENT AUTO 0.3 % (0.0-0.4); LYMPHOCYTES ABSOLUTE AUTO 1.85 K/uL (1.00-4.80); LYMPHOCYTES PERCENT AUTO 21.4 % (24.0-44.0); MEAN CORPUSCULAR HEMOGLOBIN 30.8 pg (28.0-32.0); MEAN CORPUSCULAR HGB CONC 33.1 g/dL (32.0-36.0); MEAN CORPUSCULAR VOLUME 93.3 fL (83.0-99.0); MEAN PLATELET VOLUME 9.9 fL (9.4-12.4); MONOCYTES ABSOLUTE AUTO 0.84 K/uL (0.00-0.80); MONOCYTES PERCENT AUTO 9.7 % (0.0-8.0); NEUTROPHILS ABSOLUTE AUTO 5.84 K/uL (1.80-7.70); NEUTROPHILS PERCENT AUTO 67.6 % (41.0-71.0); PLATELET COUNT,PLT 189 K/uL (150-400); RED BLOOD CELL COUNT 4.02 M/uL (4.52-5.90); WHITE BLOOD CELL COUNT,WBC 8.65 K/uL (3.9-11.3)
[2024-01-06 18:23] LABS: APPEARANCE,URINE CLEAR; BILIRUBIN,URINE NEGATIVE (NEGATIVE); COLOR,URINE YELLOW; GLUCOSE,URINE NEGATIVE (NEGATIVE); KETONES,URINE NEGATIVE (NEGATIVE); LEUKOCYTE ESTERASE,URINE NEGATIVE (NEGATIVE); NITRITE,URINE NEGATIVE (NEGATIVE); OCCULT BLOOD,URINE NEGATIVE (NEGATIVE); PROTEIN,URINE NEGATIVE (NEGATIVE); UROBILINOGEN,URINE 0.2 EU/dL (<2.0)
[2024-01-06 18:45] LABS: A/G RATIO 0.9 (0.9-1.6); ALBUMIN 3.6 g/dL (3.4-5.0); BILIRUBIN TOTAL 0.4 mg/dL (0.2-1.0); CARBON DIOXIDE,CO2 29.3 mmol/L (21.0-32.0); CREATININE 1.4 mg/dL (0.8-1.3); EST CRCL DRUG DOSING (CG) 59.01 mL/min; PROTEIN TOTAL,TP 7.7 g/dL (6.4-8.2)
[2024-01-06 19:04] LABS: CORONAVIRUS COVID-19 NAA NEGATIVE (NEGATIVE); INFLUENZA A NAA NEGATIVE (NEGATIVE); INFLUENZA B NAA NEGATIVE (NEGATIVE)
== END 2024-01-06 19:37 | disposition home or self-care (01) ==
LOC: MW.ED 16:17
DX: J40 Bronchitis, not specified as acute or chronic (principal); E86.0 Dehydration; I10 Essential (primary) hypertension; J45.909 Unspecified asthma, uncomplicated; E66.9 Obesity, unspecified; E11.9 Type 2 diabetes mellitus without complications; Z88.2 Allergy status to sulfonamides; Z91.041 Radiographic dye allergy status; Z91.030 Bee allergy status; Z91.013 Allergy to seafood; Z91.018 Allergy to other foods; Z79.82 Long term (current) use of aspirin; Z79.84 Long term (current) use of oral hypoglycemic drugs; Z79.2 Long term (current) use of antibiotics; Z79.899 Other long term (current) drug therapy; Z86.16 Personal history of COVID-19; Z90.49 Acquired absence of other specified parts of digestive tract; Z68.41 Body mass index [BMI] 40.0-44.9, adult; Z75.8 Other problems related to medical facilities and other health care
CPT/HCPCS: 0240U; 36415; 70450; 71045; 80053; 81003; 84484; 85025; 87651; 93005; 96360; 99285; J7030; 93010; 99282

== ENCOUNTER 2024-03-01 15:10 | Emergency (ER) | payer MEDICARE, MEDICAID ==
[2024-03-01 15:33] LABS: BASOPHILS ABSOLUTE AUTO 0.03 K/uL (0.00-0.20); BASOPHILS PERCENT AUTO 0.3 % (0.0-1.0); HEMATOCRIT 37.3 % (42.0-52.0); HEMOGLOBIN 11.9 g/dL (14.0-18.0); IMMATURE GRAN ABSOLUTE AUTO 0.05 K/uL (0.00-0.05); IMMATURE GRAN PERCENT AUTO 0.5 % (0.0-0.4); LYMPHOCYTES ABSOLUTE AUTO 1.55 K/uL (1.00-4.80); LYMPHOCYTES PERCENT AUTO 16.2 % (24.0-44.0); MEAN CORPUSCULAR HEMOGLOBIN 30.6 pg (28.0-32.0); MEAN CORPUSCULAR HGB CONC 31.9 g/dL (32.0-36.0); MEAN CORPUSCULAR VOLUME 95.9 fL (83.0-99.0); MONOCYTES ABSOLUTE AUTO 0.85 K/uL (0.00-0.80); MONOCYTES PERCENT AUTO 8.9 % (0.0-8.0); NEUTROPHILS ABSOLUTE AUTO 6.99 K/uL (1.80-7.70); NEUTROPHILS PERCENT AUTO 73.1 % (41.0-71.0); PLATELET COUNT,PLT 193 K/uL (150-400); RED BLOOD CELL COUNT 3.89 M/uL (4.52-5.90); WHITE BLOOD CELL COUNT,WBC 9.57 K/uL (3.9-11.3)
[2024-03-01 15:43] LABS: INR 1.37 (0.86-1.11)
[2024-03-01] MEDS: Sodium Chloride 0.9% 1,000 ML IV ONE (15:52)
[2024-03-01] MEDS: Sodium Chloride 0.9% 2.5 ML Syringe FLUSH PRN ×2 (15:52)
[2024-03-01] MEDS: Sodium Chloride 0.9% 10 ML Syringe FLUSH PRN ×2 (15:52)
[2024-03-01] MEDS: Ketamine 500 mg/10 ML MDV IV ONE (15:58)
[2024-03-01 16:06] LABS: A/G RATIO 1.3 (0.9-1.6); ALANINE AMINOTRANSFERASE,ALT 29 IU/L (14-63); ALBUMIN 3.7 g/dL (3.4-5.0); ALKALINE PHOSPHATASE 89 U/L (46-116); ASPARTATE AMNIOTRANSFERASE,AST 16 IU/L (15-37); BILIRUBIN TOTAL 0.4 mg/dL (0.2-1.0); BLOOD UREA NITROGEN,BUN 37 mg/dL (7.0-18.0); CALCIUM 8.5 mg/dL (8.5-10.1); CARBON DIOXIDE,CO2 27.5 mmol/L (21.0-32.0); CHLORIDE,CL 98 mmol/L (98-107); CREATININE 1.8 mg/dL (0.8-1.3); EST CRCL DRUG DOSING (CG) 36.09 mL/min; ETHANOL BLOOD MEDICAL <3 mg/dL; GLUCOSE RANDOM 132 mg/dL (74-106); LIPASE 56 U/L (16-77); POTASSIUM,K 4.9 mmol/L (3.5-5.1); PROTEIN TOTAL,TP 6.6 g/dL (6.4-8.2); SODIUM,NA 134 mmol/L (136-148)
[2024-03-01 16:18] LABS: ESTIMATED GFR 42 mL/min (>60)
[2024-03-01] MEDS: Midazolam 1 MG/ML 2 ML SDV ONE (16:43)
[2024-03-01] MEDS: Midazolam 1 MG/ML 2 ML SDV IVPUSH STA (16:44)
[2024-03-01] MEDS: Midazolam 1 MG/ML 2 ML SDV IVPUSH ONE ×2 (18:18→19:09)
[2024-03-01] MEDS: Calcium Gluconate 10% 1 GM/10 ML SDV IVPUSH ONE (18:55)
[2024-03-01] MEDS: Ondansetron 4 MG/2 ML SDV IVPUSH ONE (19:04)
[2024-03-01] MEDS: Glucagon,Human Recombinant 1 MG Vial IVPUSH ONE (19:10)
[2024-03-01] MEDS: Water For Injection, Sterile 10 ML SDV INJECT ONE (19:41)
[2024-03-01] MEDS: Water For Injection, Sterile 20 ML ONE (19:41)
== END 2024-03-01 20:20 ==
LOC: MW.ED 15:10
DX: R55 Syncope and collapse (principal); I95.9 Hypotension, unspecified; R00.1 Bradycardia, unspecified; I48.91 Unspecified atrial fibrillation; E11.9 Type 2 diabetes mellitus without complications; I11.0 Hypertensive heart disease with heart failure; I50.9 Heart failure, unspecified; E66.9 Obesity, unspecified; Z79.82 Long term (current) use of aspirin; Z79.02 Long term (current) use of antithrombotics/antiplatelets; Z79.84 Long term (current) use of oral hypoglycemic drugs; Z79.899 Other long term (current) drug therapy; Z88.8 Allergy status to other drugs, medicaments and biological substances; Z88.2 Allergy status to sulfonamides; Z91.041 Radiographic dye allergy status; Z91.030 Bee allergy status; Z75.8 Other problems related to medical facilities and other health care
CPT/HCPCS: 36415; 70450; 71045; 71250; 72125; 74176; 80053; 80162; 80307; 83605; 83690; 83880; 84484; 85025; 85610; 86850; 86900; 86901; 93005; 96361; 96374; 96375; 96376; 99285; J1611; J2250; J2405; J3490; J7030; 93010

== ENCOUNTER 2024-03-20 12:54 | Emergency (ER) | payer MEDICARE, MEDICAID ==
[2024-03-20 13:20] LABS: BASOPHILS ABSOLUTE AUTO 0.02 K/uL (0.00-0.20); BASOPHILS PERCENT AUTO 0.3 % (0.0-1.0); EOSINOPHILS ABSOLUTE AUTO 0.16 K/uL (0.00-0.45); EOSINOPHILS PERCENT AUTO 2.1 % (0.0-6.0); HEMATOCRIT 35.1 % (42.0-52.0); HEMOGLOBIN 11.6 g/dL (14.0-18.0); IMMATURE GRAN ABSOLUTE AUTO 0.01 K/uL (0.00-0.05); IMMATURE GRAN PERCENT AUTO 0.1 % (0.0-0.4); LYMPHOCYTES ABSOLUTE AUTO 1.26 K/uL (1.00-4.80); LYMPHOCYTES PERCENT AUTO 16.6 % (24.0-44.0); MEAN CORPUSCULAR VOLUME 93.9 fL (83.0-99.0); MEAN PLATELET VOLUME 9.5 fL (9.4-12.4); MONOCYTES ABSOLUTE AUTO 0.68 K/uL (0.00-0.80); NEUTROPHILS ABSOLUTE AUTO 5.44 K/uL (1.80-7.70); NEUTROPHILS PERCENT AUTO 71.9 % (41.0-71.0); PLATELET COUNT,PLT 173 K/uL (150-400); RED BLOOD CELL COUNT 3.74 M/uL (4.52-5.90); WHITE BLOOD CELL COUNT,WBC 7.57 K/uL (3.9-11.3)
[2024-03-20 13:54] LABS: ALANINE AMINOTRANSFERASE,ALT 26 IU/L (14-63); ALBUMIN 3.6 g/dL (3.4-5.0); ALKALINE PHOSPHATASE 88 U/L (46-116); ASPARTATE AMNIOTRANSFERASE,AST 14 IU/L (15-37); BILIRUBIN TOTAL 0.5 mg/dL (0.2-1.0); BLOOD UREA NITROGEN,BUN 24 mg/dL (7.0-18.0); CARBON DIOXIDE,CO2 28.3 mmol/L (21.0-32.0); CHLORIDE,CL 99 mmol/L (98-107); CREATININE 1.2 mg/dL (0.8-1.3); GLUCOSE RANDOM 109 mg/dL (74-106); LIPASE 47 U/L (16-77); POTASSIUM,K 3.7 mmol/L (3.5-5.1); PROTEIN TOTAL,TP 7.2 g/dL (6.4-8.2); SODIUM,NA 137 mmol/L (136-148)
[2024-03-20 13:58] LABS: ESTIMATED GFR 69 mL/min (>60)
[2024-03-20 14:02] LABS: INR 1.38 (0.86-1.11); PTT,PARTIAL THROMBOPLSTIN TIME 41.8 SEC (23.9-30.7)
[2024-03-20] MEDS: Meclizine 25 MG Tab PO STA (15:02)
== END 2024-03-20 16:14 | disposition home or self-care (01) ==
LOC: MW.ED 12:54
DX: R07.9 Chest pain, unspecified (principal); R42 Dizziness and giddiness; I10 Essential (primary) hypertension; I48.91 Unspecified atrial fibrillation; E11.9 Type 2 diabetes mellitus without complications; E66.9 Obesity, unspecified; Z86.16 Personal history of COVID-19; Z90.49 Acquired absence of other specified parts of digestive tract; Z79.82 Long term (current) use of aspirin; Z79.01 Long term (current) use of anticoagulants; Z79.899 Other long term (current) drug therapy; Z79.84 Long term (current) use of oral hypoglycemic drugs; Z79.1 Long term (current) use of non-steroidal anti-inflammatories (NSAID); Z79.51 Long term (current) use of inhaled steroids; Z91.048 Other nonmedicinal substance allergy status; Z91.030 Bee allergy status; Z91.013 Allergy to seafood; Z88.2 Allergy status to sulfonamides; Z88.8 Allergy status to other drugs, medicaments and biological substances; Z68.42 Body mass index [BMI] 45.0-49.9, adult
CPT/HCPCS: 36415; 71045; 80053; 82947; 83690; 84484; 85025; 85610; 85730; 93005; 99285; A9270; 93010

== ENCOUNTER 2024-09-27 09:53 | Inpatient (IN) | payer MEDICARE, MEDICAID ==
[2024-09-27] MEDS ORDERED: Sodium Chloride 0.9% 10 ML Syringe FLUSH PRN (10:28)
[2024-09-27 10:37] LABS: BASOPHILS ABSOLUTE AUTO 0.02 K/uL (0.00-0.20); BASOPHILS PERCENT AUTO 0.2 % (0.0-1.0); EOSINOPHILS ABSOLUTE AUTO 0.06 K/uL (0.00-0.45); EOSINOPHILS PERCENT AUTO 0.6 % (0.0-6.0); HEMATOCRIT 41.7 % (42.0-52.0); IMMATURE GRAN ABSOLUTE AUTO 0.03 K/uL (0.00-0.05); IMMATURE GRAN PERCENT AUTO 0.3 % (0.0-0.4); LYMPHOCYTES ABSOLUTE AUTO 0.65 K/uL (1.00-4.80); MEAN CORPUSCULAR HEMOGLOBIN 30.6 pg (28.0-32.0); MEAN CORPUSCULAR HGB CONC 33.6 g/dL (32.0-36.0); MONOCYTES ABSOLUTE AUTO 0.52 K/uL (0.00-0.80); MONOCYTES PERCENT AUTO 4.8 % (0.0-8.0); NEUTROPHILS PERCENT AUTO 88.1 % (41.0-71.0); PLATELET COUNT,PLT 213 K/uL (150-400); RED BLOOD CELL COUNT 4.58 M/uL (4.52-5.90); WHITE BLOOD CELL COUNT,WBC 10.88 K/uL (3.9-11.3)
[2024-09-27 11:16] LABS: A/G RATIO 0.8 (0.9-1.6); ALBUMIN 3.8 g/dL (3.4-5.0); BILIRUBIN TOTAL 0.7 mg/dL (0.2-1.0); CALCIUM 9.2 mg/dL (8.5-10.1); CARBON DIOXIDE,CO2 25.4 mmol/L (21.0-32.0); CREATININE 1.3 mg/dL (0.8-1.3); EST CRCL DRUG DOSING (CG) 58.92 mL/min; MAGNESIUM 2.1 mg/dL (1.8-2.4); PROTEIN TOTAL,TP 8.3 g/dL (6.4-8.2)
[2024-09-27] MEDS: Sodium Chloride 0.9% 500 ML IV SCH (13:20)
[2024-09-27] MEDS: Sodium Chloride 0.9% 1,000 ML IV ONE ×2 (15:19→20:26)
[2024-09-27] MEDS ORDERED: Ondansetron 4 MG Tab.DIS PO PRN (20:15)
[2024-09-27] MEDS ORDERED: EPINEPHrine 1 MG/1 ML Amp IM PRN (21:11)
[2024-09-27] MEDS ORDERED: Glucagon,Human Recombinant 1 MG Vial IM PRN (21:24)
[2024-09-27] MEDS ORDERED: 50% Dextrose in Water 50 ML Syringe IVPUSH PRN (21:24)
[2024-09-27] MEDS: Metoprolol Tartrate 5 MG/5 ML SDV IVPUSH ONE (22:12)
[2024-09-27] MEDS: Amiodarone 150 MG/100 ML 100 ML IV ONE (22:17)
[2024-09-27] MEDS: Amiodarone 360 MG/200 ML 360 MG/200 ML BAG IV ONE ×2 (22:33→23:47)
[2024-09-27] MEDS: Sodium Chloride 0.9% 1,000 ML IV SCH (22:43)
[2024-09-28 03:50] LABS: APPEARANCE,URINE SLT CLOUDY; BILIRUBIN,URINE NEGATIVE (NEGATIVE); COLOR,URINE YELLOW; GLUCOSE,URINE NEGATIVE (NEGATIVE); KETONES,URINE NEGATIVE (NEGATIVE); LEUKOCYTE ESTERASE,URINE SMALL (NEGATIVE); NITRITE,URINE POSITIVE (NEGATIVE); OCCULT BLOOD,URINE TRACE-INTACT (NEGATIVE); PH,URINE 5.5 (5.0-8.0); PROTEIN,URINE NEGATIVE (NEGATIVE); UROBILINOGEN,URINE 0.2 EU/dL (<2.0)
[2024-09-28 04:01] LABS: BACTERIA,URINE 2+ (NEGATIVE); EPITHELIAL CELLS,URINE RARE (NONE-FEW); RBC,URINE 0-1 (0-2/HPF); WBC,URINE 15-25 (0-5/HPF)
[2024-09-28] MEDS: Amiodarone 360 MG/200 ML 540 MG/300 ML BAG IV ONE (04:40)
[2024-09-28 06:06] LABS: BASOPHILS ABSOLUTE AUTO 0.01 K/uL (0.00-0.20); BASOPHILS PERCENT AUTO 0.2 % (0.0-1.0); EOSINOPHILS ABSOLUTE AUTO 0.03 K/uL (0.00-0.45); EOSINOPHILS PERCENT AUTO 0.6 % (0.0-6.0); HEMATOCRIT 34.6 % (42.0-52.0); HEMOGLOBIN 11.7 g/dL (14.0-18.0); IMMATURE GRAN ABSOLUTE AUTO 0.02 K/uL (0.00-0.05); IMMATURE GRAN PERCENT AUTO 0.4 % (0.0-0.4); LYMPHOCYTES ABSOLUTE AUTO 0.78 K/uL (1.00-4.80); LYMPHOCYTES PERCENT AUTO 14.4 % (24.0-44.0); MEAN CORPUSCULAR HEMOGLOBIN 30.4 pg (28.0-32.0); MEAN CORPUSCULAR HGB CONC 33.8 g/dL (32.0-36.0); MEAN CORPUSCULAR VOLUME 89.9 fL (83.0-99.0); MONOCYTES PERCENT AUTO 11.1 % (0.0-8.0); NEUTROPHILS ABSOLUTE AUTO 3.98 K/uL (1.80-7.70); NEUTROPHILS PERCENT AUTO 73.3 % (41.0-71.0); PLATELET COUNT,PLT 187 K/uL (150-400); RED BLOOD CELL COUNT 3.85 M/uL (4.52-5.90); WHITE BLOOD CELL COUNT,WBC 5.42 K/uL (3.9-11.3)
[2024-09-28 06:27] LABS: A/G RATIO 0.9 (0.9-1.6); ALBUMIN 3.1 g/dL (3.4-5.0); BILIRUBIN TOTAL 0.5 mg/dL (0.2-1.0); CALCIUM 8.5 mg/dL (8.5-10.1); CARBON DIOXIDE,CO2 24.5 mmol/L (21.0-32.0); CREATININE 1.1 mg/dL (0.8-1.3); EST CRCL DRUG DOSING (CG) 69.63 mL/min; MAGNESIUM 1.8 mg/dL (1.8-2.4); POTASSIUM,K 4.1 mmol/L (3.5-5.1); PROTEIN TOTAL,TP 6.7 g/dL (6.4-8.2)
[2024-09-28] MEDS: Insulin Aspart 100 Units/ML 3 ML Pen SUBCUT SCH (08:08)
[2024-09-28] MEDS: cefTRIAXone 1 GM in Sodium Chloride 0.9% 50 ML IV SCH (10:51)
[2024-09-28] MEDS: Metoprolol Succinate 50 MG Tab.ER PO SCH (10:52)
[2024-09-28] MEDS: Rivaroxaban 10 MG Tab PO SCH (17:15)
[2024-09-28] MEDS: risperiDONE 0.25 MG Tab PO SCH (20:14)
[2024-09-28] MEDS: Famotidine 20 MG Tab PO SCH (20:15)
[2024-09-28] MEDS: Acetaminophen 325 MG Tab PO PRN (20:15)
[2024-09-28] MEDS: Diltiazem 120 MG Cap.CD PO SCH (20:47)
[2024-09-29 06:13] LABS: BASOPHILS ABSOLUTE AUTO 0.01 K/uL (0.00-0.20); BASOPHILS PERCENT AUTO 0.2 % (0.0-1.0); EOSINOPHILS ABSOLUTE AUTO 0.04 K/uL (0.00-0.45); HEMATOCRIT 34.6 % (42.0-52.0); HEMOGLOBIN 11.4 g/dL (14.0-18.0); IMMATURE GRAN ABSOLUTE AUTO 0.02 K/uL (0.00-0.05); IMMATURE GRAN PERCENT AUTO 0.5 % (0.0-0.4); LYMPHOCYTES ABSOLUTE AUTO 1.07 K/uL (1.00-4.80); LYMPHOCYTES PERCENT AUTO 25.5 % (24.0-44.0); MEAN CORPUSCULAR HEMOGLOBIN 30.2 pg (28.0-32.0); MEAN CORPUSCULAR HGB CONC 32.9 g/dL (32.0-36.0); MEAN CORPUSCULAR VOLUME 91.5 fL (83.0-99.0); MEAN PLATELET VOLUME 10.2 fL (9.4-12.4); MONOCYTES ABSOLUTE AUTO 0.74 K/uL (0.00-0.80); MONOCYTES PERCENT AUTO 17.7 % (0.0-8.0); NEUTROPHILS ABSOLUTE AUTO 2.31 K/uL (1.80-7.70); NEUTROPHILS PERCENT AUTO 55.1 % (41.0-71.0); PLATELET COUNT,PLT 168 K/uL (150-400); RED BLOOD CELL COUNT 3.78 M/uL (4.52-5.90); WHITE BLOOD CELL COUNT,WBC 4.19 K/uL (3.9-11.3)
[2024-09-29 06:46] LABS: A/G RATIO 0.8 (0.9-1.6); BILIRUBIN TOTAL 0.4 mg/dL (0.2-1.0); CALCIUM 8.6 mg/dL (8.5-10.1); CARBON DIOXIDE,CO2 22.6 mmol/L (21.0-32.0); EST CRCL DRUG DOSING (CG) 76.59 mL/min; MAGNESIUM 1.8 mg/dL (1.8-2.4); POTASSIUM,K 3.7 mmol/L (3.5-5.1); PROTEIN TOTAL,TP 6.6 g/dL (6.4-8.2)
== END 2024-09-30 12:58 | DRG 315 ==
LOC: MW.ED 09:53 → MW.MS 19:04 → MW.ICU 21:41 → MW.MS 09-29 09:51
PROVIDERS: ADMIT Family Medicine; ATTEND Family Medicine
DX: I95.1 Orthostatic hypotension (principal); I95.89 Other hypotension; I48.20 Chronic atrial fibrillation, unspecified; Z68.41 Body mass index [BMI] 40.0-44.9, adult; I50.32 Chronic diastolic (congestive) heart failure; N39.0 Urinary tract infection, site not specified; E86.0 Dehydration; J45.909 Unspecified asthma, uncomplicated; K59.09 Other constipation; M10.9 Gout, unspecified; E11.9 Type 2 diabetes mellitus without complications; F79 Unspecified intellectual disabilities; I11.0 Hypertensive heart disease with heart failure; E78.00 Pure hypercholesterolemia, unspecified; G31.84 Mild cognitive impairment of uncertain or unknown etiology; W19.XXXA Unspecified fall, initial encounter; E66.01 Morbid (severe) obesity due to excess calories; R29.6 Repeated falls; I27.20 Pulmonary hypertension, unspecified; Z79.01 Long term (current) use of anticoagulants; Z88.2 Allergy status to sulfonamides; Z91.030 Bee allergy status; Z91.013 Allergy to seafood; Z79.82 Long term (current) use of aspirin; Z79.899 Other long term (current) drug therapy; Z79.84 Long term (current) use of oral hypoglycemic drugs; Z90.49 Acquired absence of other specified parts of digestive tract; Z86.718 Personal history of other venous thrombosis and embolism
CPT/HCPCS: 36415; 70450; 70450-26; 71045; 71045-26; 72125; 72125-26; 72128; 72128-26; 72131; 72131-26; 80053; 80162; 81001; 82947; 83735; 83880; 84484; 85025; 87086; 87088; 87186; 87428-QW; 93005; 93306; 96360; 96361; 99285-25; A9270-GY; J0282; J0696; J3490; J7030; J7040

== ENCOUNTER 2024-10-09 10:03 | Emergency (ER) | payer OTHER, MEDICARE, MEDICAID ==
[2024-10-09] MEDS: Acetaminophen 500 MG Tab PO STA (11:35)
== END 2024-10-09 13:32 | disposition home or self-care (01) ==
LOC: MW.ED 10:03
DX: M54.50 Low back pain, unspecified (principal); I10 Essential (primary) hypertension; I48.91 Unspecified atrial fibrillation; E11.9 Type 2 diabetes mellitus without complications; Z90.49 Acquired absence of other specified parts of digestive tract; Z91.041 Radiographic dye allergy status; Z91.030 Bee allergy status; Z75.8 Other problems related to medical facilities and other health care; Z88.2 Allergy status to sulfonamides; Z91.013 Allergy to seafood; Z79.82 Long term (current) use of aspirin; Z79.84 Long term (current) use of oral hypoglycemic drugs; Z79.899 Other long term (current) drug therapy; V49.59XA Passenger injured in collision with other motor vehicles in traffic accident, initial encounter; Y93.89 Activity, other specified
CPT/HCPCS: 72131; 99284; A9270

== ENCOUNTER 2024-10-22 13:26 | Emergency (ER) | payer MEDICARE, MEDICAID ==
[2024-10-22] MEDS: Sodium Chloride 0.9% 1,000 ML IV SCH (14:25)
[2024-10-22 14:30] LABS: BASOPHILS ABSOLUTE AUTO 0.02 K/uL (0.00-0.20); BASOPHILS PERCENT AUTO 0.3 % (0.0-1.0); EOSINOPHILS ABSOLUTE AUTO 0.06 K/uL (0.00-0.45); EOSINOPHILS PERCENT AUTO 0.8 % (0.0-6.0); HEMATOCRIT 36.8 % (42.0-52.0); HEMOGLOBIN 12.4 g/dL (14.0-18.0); IMMATURE GRAN ABSOLUTE AUTO 0.01 K/uL (0.00-0.05); IMMATURE GRAN PERCENT AUTO 0.1 % (0.0-0.4); LYMPHOCYTES PERCENT AUTO 18.6 % (24.0-44.0); MEAN CORPUSCULAR HEMOGLOBIN 31.1 pg (28.0-32.0); MEAN CORPUSCULAR HGB CONC 33.7 g/dL (32.0-36.0); MEAN CORPUSCULAR VOLUME 92.2 fL (83.0-99.0); MEAN PLATELET VOLUME 10.6 fL (9.4-12.4); MONOCYTES ABSOLUTE AUTO 0.71 K/uL (0.00-0.80); MONOCYTES PERCENT AUTO 9.4 % (0.0-8.0); NEUTROPHILS ABSOLUTE AUTO 5.32 K/uL (1.80-7.70); NEUTROPHILS PERCENT AUTO 70.8 % (41.0-71.0); PLATELET COUNT,PLT 151 K/uL (150-400); RED BLOOD CELL COUNT 3.99 M/uL (4.52-5.90); WHITE BLOOD CELL COUNT,WBC 7.52 K/uL (3.9-11.3)
[2024-10-22 15:05] LABS: ALBUMIN 3.7 g/dL (3.4-5.0); BILIRUBIN TOTAL 0.5 mg/dL (0.2-1.0); CALCIUM 8.8 mg/dL (8.5-10.1); CREATININE 1.3 mg/dL (0.8-1.3); EST CRCL DRUG DOSING (CG) 58.92 mL/min; POTASSIUM,K 3.9 mmol/L (3.5-5.1); PROTEIN TOTAL,TP 7.5 g/dL (6.4-8.2)
[2024-10-22 17:19] LABS: APPEARANCE,URINE SLT CLOUDY; BILIRUBIN,URINE NEGATIVE (NEGATIVE); COLOR,URINE YELLOW; GLUCOSE,URINE NEGATIVE (NEGATIVE); KETONES,URINE NEGATIVE (NEGATIVE); LEUKOCYTE ESTERASE,URINE LARGE (NEGATIVE); NITRITE,URINE NEGATIVE (NEGATIVE); OCCULT BLOOD,URINE TRACE-INTACT (NEGATIVE); PROTEIN,URINE NEGATIVE (NEGATIVE)
[2024-10-22 18:10] LABS: BACTERIA,URINE 4+ (NEGATIVE); EPITHELIAL CELLS,URINE NOT SEEN (NONE-FEW); RBC,URINE 0-2 (0-2/HPF); WBC,URINE TOO NUMEROUS TO CT (0-5/HPF)
[2024-10-22] MEDS: cefTRIAXone 2 GM in Sodium Chloride 0.9% 50 ML IV ONE (18:32)
== END 2024-10-22 19:04 | disposition home or self-care (01) ==
LOC: MW.ED 13:26
DX: N30.01 Acute cystitis with hematuria (principal); I48.91 Unspecified atrial fibrillation; I10 Essential (primary) hypertension; J45.909 Unspecified asthma, uncomplicated; E11.9 Type 2 diabetes mellitus without complications; Z90.49 Acquired absence of other specified parts of digestive tract; Z91.041 Radiographic dye allergy status; Z91.030 Bee allergy status; Z88.2 Allergy status to sulfonamides; Z91.013 Allergy to seafood; Z91.018 Allergy to other foods; Z79.82 Long term (current) use of aspirin; Z79.899 Other long term (current) drug therapy; Z79.84 Long term (current) use of oral hypoglycemic drugs; Z79.85 Long-term (current) use of injectable non-insulin antidiabetic drugs
CPT/HCPCS: 36415; 71046; 80053; 81001; 83690; 83735; 83880; 84484; 85025; 87428; 93005; 96361; 96365; 99285; J0696; J3490; J7030

== ENCOUNTER 2024-11-19 08:16 | Inpatient (IN) | payer MEDICARE, MEDICAID ==
[2024-11-19 10:05] LABS: BASOPHILS ABSOLUTE AUTO 0.02 K/uL (0.00-0.20); BASOPHILS PERCENT AUTO 0.3 % (0.0-1.0); EOSINOPHILS ABSOLUTE AUTO 0.05 K/uL (0.00-0.45); EOSINOPHILS PERCENT AUTO 0.8 % (0.0-6.0); HEMATOCRIT 35.5 % (42.0-52.0); HEMOGLOBIN 11.4 g/dL (14.0-18.0); IMMATURE GRAN ABSOLUTE AUTO 0.01 K/uL (0.00-0.05); IMMATURE GRAN PERCENT AUTO 0.2 % (0.0-0.4); LYMPHOCYTES ABSOLUTE AUTO 0.49 K/uL (1.00-4.80); LYMPHOCYTES PERCENT AUTO 7.4 % (24.0-44.0); MEAN CORPUSCULAR HEMOGLOBIN 30.1 pg (28.0-32.0); MEAN CORPUSCULAR HGB CONC 32.1 g/dL (32.0-36.0); MEAN CORPUSCULAR VOLUME 93.7 fL (83.0-99.0); MEAN PLATELET VOLUME 9.7 fL (9.4-12.4); MONOCYTES ABSOLUTE AUTO 0.71 K/uL (0.00-0.80); MONOCYTES PERCENT AUTO 10.7 % (0.0-8.0); NEUTROPHILS ABSOLUTE AUTO 5.37 K/uL (1.80-7.70); NEUTROPHILS PERCENT AUTO 80.6 % (41.0-71.0); PLATELET COUNT,PLT 154 K/uL (150-400); RED BLOOD CELL COUNT 3.79 M/uL (4.52-5.90); WHITE BLOOD CELL COUNT,WBC 6.65 K/uL (3.9-11.3)
[2024-11-19 10:21] LABS: D-DIMER QUANTITATIVE 0.72 mg/L FEU (0.00-0.50); INR 1.83 (0.86-1.11)
[2024-11-19 10:37] LABS: LACTIC ACID 2.2 mmol/L (0.4-2.0)
[2024-11-19 10:43] LABS: A/G RATIO 0.9 (0.9-1.6); ALBUMIN 3.6 g/dL (3.4-5.0); CARBON DIOXIDE,CO2 30.9 mmol/L (21.0-32.0); CREATININE 1.2 mg/dL (0.8-1.3); EST CRCL DRUG DOSING (CG) 57.6 mL/min; POTASSIUM,K 3.8 mmol/L (3.5-5.1); PROTEIN TOTAL,TP 7.4 g/dL (6.4-8.2)
[2024-11-19] MEDS ORDERED: cefTRIAXone 2 GM in Sodium Chloride 0.9% 100 ML IV ONE (12:19)
[2024-11-19] MEDS: diphenhydrAMINE 50 MG/ML SDV IVPUSH ONE (12:24)
[2024-11-19] MEDS: methylPREDNISolone Sodium Succinate 40 MG/1 ML SDV IVPUSH ONE (12:24)
[2024-11-19] MEDS: cefTRIAXone 2 GM in Sodium Chloride 0.9% 100 ML IV ONE (12:40)
[2024-11-19 13:05] LABS: CORONAVIRUS COVID-19 NAA NEGATIVE (NEGATIVE); INFLUENZA A NAA NEGATIVE (NEGATIVE); INFLUENZA B NAA NEGATIVE (NEGATIVE)
[2024-11-19 13:29] LABS: APPEARANCE,URINE CLEAR; BILIRUBIN,URINE NEGATIVE (NEGATIVE); COLOR,URINE YELLOW; GLUCOSE,URINE NEGATIVE (NEGATIVE); KETONES,URINE NEGATIVE (NEGATIVE); LEUKOCYTE ESTERASE,URINE NEGATIVE (NEGATIVE); NITRITE,URINE NEGATIVE (NEGATIVE); OCCULT BLOOD,URINE NEGATIVE (NEGATIVE); PH,URINE 6.5 (5.0-8.0); PROTEIN,URINE NEGATIVE (NEGATIVE)
[2024-11-19] MEDS: Iopamidol 755 MG/ML 500 ML Multipack Bottle IVPUSH STA (13:36)
[2024-11-19] MEDS: Sodium Chloride 0.9% 1,000 ML IV ONE (14:12)
[2024-11-19] MEDS: Azithromycin 500 MG in Sodium Chloride 0.9% 250 ML IV ONE (15:14)
[2024-11-19] MEDS ORDERED: Melatonin 3 MG Tab PO PRN (17:39)
[2024-11-19] MEDS ORDERED: Polyethylene Glycol 3350 Powder 17 GM Packet PO PRN (17:39)
[2024-11-19] MEDS ORDERED: 50% Dextrose in Water 50 ML Syringe IVPUSH PRN (18:40)
[2024-11-19] MEDS ORDERED: Glucagon,Human Recombinant 1 MG Vial IM PRN (18:40)
[2024-11-19] MEDS: risperiDONE 0.25 MG Tab PO SCH (20:41)
[2024-11-19] MEDS: traZODone 50 MG Tab PO SCH (20:42)
[2024-11-19] MEDS: atorvaSTATin 40 MG Tab PO SCH (20:42)
[2024-11-19] MEDS: Pantoprazole 40 MG Tab.CR PO SCH (20:42)
[2024-11-20 06:23] LABS: BASOPHILS ABSOLUTE AUTO 0.01 K/uL (0.00-0.20); BASOPHILS PERCENT AUTO 0.2 % (0.0-1.0); EOSINOPHILS ABSOLUTE AUTO 0.03 K/uL (0.00-0.45); EOSINOPHILS PERCENT AUTO 0.6 % (0.0-6.0); HEMATOCRIT 33.4 % (42.0-52.0); HEMOGLOBIN 10.8 g/dL (14.0-18.0); IMMATURE GRAN ABSOLUTE AUTO 0.01 K/uL (0.00-0.05); IMMATURE GRAN PERCENT AUTO 0.2 % (0.0-0.4); LYMPHOCYTES ABSOLUTE AUTO 0.64 K/uL (1.00-4.80); LYMPHOCYTES PERCENT AUTO 11.8 % (24.0-44.0); MEAN CORPUSCULAR HGB CONC 32.3 g/dL (32.0-36.0); MEAN CORPUSCULAR VOLUME 92.8 fL (83.0-99.0); MONOCYTES ABSOLUTE AUTO 0.59 K/uL (0.00-0.80); MONOCYTES PERCENT AUTO 10.9 % (0.0-8.0); NEUTROPHILS ABSOLUTE AUTO 4.13 K/uL (1.80-7.70); NEUTROPHILS PERCENT AUTO 76.3 % (41.0-71.0); PLATELET COUNT,PLT 141 K/uL (150-400); WHITE BLOOD CELL COUNT,WBC 5.41 K/uL (3.9-11.3)
[2024-11-20 06:53] LABS: A/G RATIO 0.9 (0.9-1.6); ALBUMIN 3.2 g/dL (3.4-5.0); BILIRUBIN TOTAL 0.8 mg/dL (0.2-1.0); CALCIUM 8.9 mg/dL (8.5-10.1); CARBON DIOXIDE,CO2 31.2 mmol/L (21.0-32.0); CREATININE 1.1 mg/dL (0.8-1.3); EST CRCL DRUG DOSING (CG) 63.15 mL/min; MAGNESIUM 1.9 mg/dL (1.8-2.4); POTASSIUM,K 3.6 mmol/L (3.5-5.1); PROTEIN TOTAL,TP 6.8 g/dL (6.4-8.2)
[2024-11-20] MEDS: Insulin Aspart 100 Units/ML 3 ML Pen SUBCUT SCH (08:17)
[2024-11-20] MEDS: Metoprolol Succinate 50 MG Tab.ER PO SCH (09:01)
[2024-11-20] MEDS: Sertraline 100 MG Tab PO SCH (09:01)
[2024-11-20] MEDS: Furosemide 40 MG Tab PO SCH (09:01)
[2024-11-20] MEDS: Diltiazem 120 MG Cap.CD PO SCH (09:02)
[2024-11-20] MEDS: Aspirin 81 MG Tab.EC PO SCH (09:02)
[2024-11-20] MEDS: Losartan 50 MG Tab PO SCH (09:02)
[2024-11-20] MEDS: Spironolactone 25 MG Tab PO SCH (09:03)
[2024-11-20] MEDS: Benzonatate 100 MG Cap PO PRN (11:04)
[2024-11-20] MEDS: Acetaminophen 325 MG Tab PO PRN (11:53)
[2024-11-20] MEDS: cefTRIAXone 1 GM in Sodium Chloride 0.9% 50 ML IV SCH (14:09)
[2024-11-20] MEDS: Azithromycin 500 MG in Sodium Chloride 0.9% 250 ML IV SCH (15:01)
[2024-11-20] MEDS: Rivaroxaban 10 MG Tab PO SCH (18:38)
[2024-11-20] MEDS: Albuterol 0.083% 2.5 MG/3 ML Neb Soln NEB PRN (18:42)
[2024-11-20] MEDS: Diltiazem 25 MG/5 ML SDV IVPUSH ONE ×2 (21:44→23:09)
[2024-11-20 23:01] LABS: BORDETELLA PARAPERT IS1001 Not Detected (Not Detected)
[2024-11-20] MEDS: Albuterol/Ipratropium 3.0-0.5 MG/3 ML Neb Soln NEB PRN (23:25)
[2024-11-21] MEDS: Diltiazem 100 MG in Sodium Chloride 0.9% 100 ML IV SCH ×2 (01:54→10:10)
[2024-11-21 06:16] LABS: BASOPHILS ABSOLUTE AUTO 0.01 K/uL (0.00-0.20); BASOPHILS PERCENT AUTO 0.2 % (0.0-1.0); EOSINOPHILS ABSOLUTE AUTO 0.01 K/uL (0.00-0.45); EOSINOPHILS PERCENT AUTO 0.2 % (0.0-6.0); HEMATOCRIT 34.2 % (42.0-52.0); HEMOGLOBIN 11.1 g/dL (14.0-18.0); IMMATURE GRAN ABSOLUTE AUTO 0.02 K/uL (0.00-0.05); IMMATURE GRAN PERCENT AUTO 0.3 % (0.0-0.4); LYMPHOCYTES ABSOLUTE AUTO 0.71 K/uL (1.00-4.80); LYMPHOCYTES PERCENT AUTO 11.5 % (24.0-44.0); MEAN CORPUSCULAR HEMOGLOBIN 30.1 pg (28.0-32.0); MEAN CORPUSCULAR HGB CONC 32.5 g/dL (32.0-36.0); MEAN CORPUSCULAR VOLUME 92.7 fL (83.0-99.0); MEAN PLATELET VOLUME 10.4 fL (9.4-12.4); MONOCYTES ABSOLUTE AUTO 0.44 K/uL (0.00-0.80); MONOCYTES PERCENT AUTO 7.1 % (0.0-8.0); NEUTROPHILS ABSOLUTE AUTO 4.99 K/uL (1.80-7.70); NEUTROPHILS PERCENT AUTO 80.7 % (41.0-71.0); PLATELET COUNT,PLT 148 K/uL (150-400); RED BLOOD CELL COUNT 3.69 M/uL (4.52-5.90); WHITE BLOOD CELL COUNT,WBC 6.18 K/uL (3.9-11.3)
[2024-11-21 06:39] LABS: A/G RATIO 0.9 (0.9-1.6); ALBUMIN 3.3 g/dL (3.4-5.0); BILIRUBIN TOTAL 0.9 mg/dL (0.2-1.0); CALCIUM 8.7 mg/dL (8.5-10.1); CARBON DIOXIDE,CO2 28.1 mmol/L (21.0-32.0); EST CRCL DRUG DOSING (CG) 69.47 mL/min; POTASSIUM,K 3.6 mmol/L (3.5-5.1); PROTEIN TOTAL,TP 6.9 g/dL (6.4-8.2)
[2024-11-21] MEDS: Digoxin 500 MCG/2 ML Amp IVPUSH ONE ×2 (13:20→18:04)
[2024-11-21] MEDS: Diltiazem 120 MG Cap.CD PO SCH (14:28)
[2024-11-21] MEDS: Furosemide 20 MG/2 ML VIAL IVPUSH ONE (18:05)
[2024-11-22] MEDS: Metoprolol Tartrate 5 MG/5 ML SDV IVPUSH PRN (00:25)
[2024-11-22 05:41] LABS: BASOPHILS ABSOLUTE AUTO 0.01 K/uL (0.00-0.20); BASOPHILS PERCENT AUTO 0.2 % (0.0-1.0); EOSINOPHILS ABSOLUTE AUTO 0.06 K/uL (0.00-0.45); IMMATURE GRAN ABSOLUTE AUTO 0.02 K/uL (0.00-0.05); IMMATURE GRAN PERCENT AUTO 0.3 % (0.0-0.4); LYMPHOCYTES ABSOLUTE AUTO 0.75 K/uL (1.00-4.80); LYMPHOCYTES PERCENT AUTO 13.1 % (24.0-44.0); MEAN CORPUSCULAR HEMOGLOBIN 29.7 pg (28.0-32.0); MEAN CORPUSCULAR HGB CONC 32.4 g/dL (32.0-36.0); MEAN CORPUSCULAR VOLUME 91.9 fL (83.0-99.0); MEAN PLATELET VOLUME 10.3 fL (9.4-12.4); MONOCYTES ABSOLUTE AUTO 0.74 K/uL (0.00-0.80); MONOCYTES PERCENT AUTO 12.9 % (0.0-8.0); NEUTROPHILS ABSOLUTE AUTO 4.15 K/uL (1.80-7.70); NEUTROPHILS PERCENT AUTO 72.5 % (41.0-71.0); PLATELET COUNT,PLT 144 K/uL (150-400); WHITE BLOOD CELL COUNT,WBC 5.73 K/uL (3.9-11.3)
[2024-11-22] MEDS ORDERED: Furosemide 20 MG/2 ML VIAL IVPUSH ONE (05:50)
[2024-11-22 06:07] LABS: CALCIUM 8.8 mg/dL (8.5-10.1); CARBON DIOXIDE,CO2 31.8 mmol/L (21.0-32.0); CREATININE 0.9 mg/dL (0.8-1.3); EST CRCL DRUG DOSING (CG) 77.19 mL/min; PHOSPHORUS 3.7 mg/dL (2.6-4.7); POTASSIUM,K 3.4 mmol/L (3.5-5.1)
[2024-11-22] MEDS: Potassium Chloride 20 MEQ Tab.ER PO ONE ×2 (08:40→13:23)
[2024-11-23 07:56] LABS: BASOPHILS ABSOLUTE AUTO 0.02 K/uL (0.00-0.20); BASOPHILS PERCENT AUTO 0.4 % (0.0-1.0); EOSINOPHILS ABSOLUTE AUTO 0.11 K/uL (0.00-0.45); HEMATOCRIT 34.1 % (42.0-52.0); HEMOGLOBIN 11.1 g/dL (14.0-18.0); IMMATURE GRAN ABSOLUTE AUTO 0.02 K/uL (0.00-0.05); IMMATURE GRAN PERCENT AUTO 0.4 % (0.0-0.4); LYMPHOCYTES ABSOLUTE AUTO 1.25 K/uL (1.00-4.80); LYMPHOCYTES PERCENT AUTO 22.9 % (24.0-44.0); MEAN CORPUSCULAR HEMOGLOBIN 29.8 pg (28.0-32.0); MEAN CORPUSCULAR HGB CONC 32.6 g/dL (32.0-36.0); MEAN CORPUSCULAR VOLUME 91.4 fL (83.0-99.0); MEAN PLATELET VOLUME 9.5 fL (9.4-12.4); MONOCYTES ABSOLUTE AUTO 0.47 K/uL (0.00-0.80); MONOCYTES PERCENT AUTO 8.6 % (0.0-8.0); NEUTROPHILS ABSOLUTE AUTO 3.58 K/uL (1.80-7.70); NEUTROPHILS PERCENT AUTO 65.7 % (41.0-71.0); PLATELET COUNT,PLT 152 K/uL (150-400); RED BLOOD CELL COUNT 3.73 M/uL (4.52-5.90); WHITE BLOOD CELL COUNT,WBC 5.45 K/uL (3.9-11.3)
[2024-11-23] MEDS: Benzonatate 100 MG Cap PO PRN (08:13)
[2024-11-23 08:41] LABS: A/G RATIO 0.8 (0.9-1.6); BILIRUBIN TOTAL 0.7 mg/dL (0.2-1.0); CALCIUM 8.9 mg/dL (8.5-10.1); CARBON DIOXIDE,CO2 28.3 mmol/L (21.0-32.0); CREATININE 0.9 mg/dL (0.8-1.3); EST CRCL DRUG DOSING (CG) 77.19 mL/min; POTASSIUM,K 3.7 mmol/L (3.5-5.1); PROTEIN TOTAL,TP 6.9 g/dL (6.4-8.2)
[2024-11-23] MEDS: Potassium Chloride 20 MEQ Tab.ER PO ONE (11:07)
[2024-11-24 06:42] LABS: HEMATOCRIT 33.6 % (42.0-52.0); HEMOGLOBIN 11.2 g/dL (14.0-18.0); MEAN CORPUSCULAR HEMOGLOBIN 30.2 pg (28.0-32.0); MEAN CORPUSCULAR HGB CONC 33.3 g/dL (32.0-36.0); MEAN CORPUSCULAR VOLUME 90.6 fL (83.0-99.0); PLATELET COUNT,PLT 187 K/uL (150-400); RED BLOOD CELL COUNT 3.71 M/uL (4.52-5.90); WHITE BLOOD CELL COUNT,WBC 5.03 K/uL (3.9-11.3)
[2024-11-24 07:03] LABS: A/G RATIO 0.8 (0.9-1.6); BILIRUBIN TOTAL 0.7 mg/dL (0.2-1.0); CALCIUM 8.9 mg/dL (8.5-10.1); CARBON DIOXIDE,CO2 29.3 mmol/L (21.0-32.0); EST CRCL DRUG DOSING (CG) 69.47 mL/min; MAGNESIUM 2.1 mg/dL (1.8-2.4); POTASSIUM,K 3.6 mmol/L (3.5-5.1); PROTEIN TOTAL,TP 6.9 g/dL (6.4-8.2)
[2024-11-24 07:18] LABS: BASOPHILS ABSOLUTE MAN 0.05 K/uL (0.00-0.20); BASOPHILS PERCENT MAN 1 % (0-1); EOSINOPHILS ABSOLUTE MAN 0.05 K/uL (0.00-0.45); EOSINOPHILS PERCENT MAN 1 % (0-6); LYMPHOCYTES ABSOLUTE MAN 1.71 K/uL (1.00-4.80); LYMPHOCYTES PERCENT MAN 34 % (24-44); MONOCYTES ABSOLUTE MAN 0.45 K/uL (0.00-0.80); MONOCYTES PERCENT MAN 9 % (0-8); SEG NEUTROPHILS ABSOLUTE MAN 2.77 K/uL (1.80-7.70); SEG NEUTROPHILS PERCENT MAN 55 % (41-71)
[2024-11-24] MEDS: cefTRIAXone 1 GM in Water For Injection, Sterile 10 ML IVPUSH SCH (13:39)
[2024-11-25 07:06] LABS: BASOPHILS ABSOLUTE AUTO 0.03 K/uL (0.00-0.20); BASOPHILS PERCENT AUTO 0.5 % (0.0-1.0); EOSINOPHILS ABSOLUTE AUTO 0.08 K/uL (0.00-0.45); EOSINOPHILS PERCENT AUTO 1.3 % (0.0-6.0); HEMATOCRIT 36.2 % (42.0-52.0); HEMOGLOBIN 11.8 g/dL (14.0-18.0); IMMATURE GRAN ABSOLUTE AUTO 0.03 K/uL (0.00-0.05); IMMATURE GRAN PERCENT AUTO 0.5 % (0.0-0.4); LYMPHOCYTES ABSOLUTE AUTO 1.88 K/uL (1.00-4.80); LYMPHOCYTES PERCENT AUTO 30.9 % (24.0-44.0); MEAN CORPUSCULAR HEMOGLOBIN 29.5 pg (28.0-32.0); MEAN CORPUSCULAR HGB CONC 32.6 g/dL (32.0-36.0); MEAN CORPUSCULAR VOLUME 90.5 fL (83.0-99.0); MEAN PLATELET VOLUME 9.9 fL (9.4-12.4); MONOCYTES ABSOLUTE AUTO 0.53 K/uL (0.00-0.80); MONOCYTES PERCENT AUTO 8.7 % (0.0-8.0); NEUTROPHILS ABSOLUTE AUTO 3.53 K/uL (1.80-7.70); NEUTROPHILS PERCENT AUTO 58.1 % (41.0-71.0); PLATELET COUNT,PLT 197 K/uL (150-400); WHITE BLOOD CELL COUNT,WBC 6.08 K/uL (3.9-11.3)
[2024-11-25 07:30] LABS: A/G RATIO 0.8 (0.9-1.6); ALBUMIN 3.2 g/dL (3.4-5.0); BILIRUBIN TOTAL 0.7 mg/dL (0.2-1.0); CALCIUM 9.2 mg/dL (8.5-10.1); CARBON DIOXIDE,CO2 29.6 mmol/L (21.0-32.0); CREATININE 1.1 mg/dL (0.8-1.3); EST CRCL DRUG DOSING (CG) 63.15 mL/min; POTASSIUM,K 3.7 mmol/L (3.5-5.1)
[2024-11-25] MEDS: Metoprolol Succinate 25 MG Tab.ER PO ONE (09:17)
== END 2024-11-25 11:15 | disposition home or self-care (01) | DRG 193 ==
LOC: MW.ED 08:16 → MW.MS 15:01 → MW.ICU 11-21 01:13 → MW.MS 11-23 12:41
PROVIDERS: ADMIT Internal Medicine; ATTEND Internal Medicine
DX: J12.2 Parainfluenza virus pneumonia (principal); I48.91 Unspecified atrial fibrillation; J96.01 Acute respiratory failure with hypoxia; Z68.41 Body mass index [BMI] 40.0-44.9, adult; I48.20 Chronic atrial fibrillation, unspecified; Z91.041 Radiographic dye allergy status; Z91.030 Bee allergy status; J45.909 Unspecified asthma, uncomplicated; K59.09 Other constipation; I11.0 Hypertensive heart disease with heart failure; I50.9 Heart failure, unspecified; M54.9 Dorsalgia, unspecified; Z79.85 Long-term (current) use of injectable non-insulin antidiabetic drugs; G89.29 Other chronic pain; M10.9 Gout, unspecified; E11.9 Type 2 diabetes mellitus without complications; E66.9 Obesity, unspecified; E86.0 Dehydration; E78.5 Hyperlipidemia, unspecified; Z88.2 Allergy status to sulfonamides; Z79.899 Other long term (current) drug therapy; Z79.82 Long term (current) use of aspirin; Z90.49 Acquired absence of other specified parts of digestive tract; Z86.718 Personal history of other venous thrombosis and embolism; Z91.013 Allergy to seafood; Z79.84 Long term (current) use of oral hypoglycemic drugs; Z79.01 Long term (current) use of anticoagulants
CPT/HCPCS: 0240U; 36415; 71045; 71275; 74177; 80048; 80053; 81003; 82550; 82947; 83605; 83735; 83880; 84100; 84484; 85025; 85379; 85610; 87040; 87486; 87581; 87633; 87899; 93005; 96361; 96365; 96375; 99285; 93010; 99222; 99232; 99233; 99238; A9270-GY; J0456; J0696; J1160; J1200; J1940; J2919; J3490; J7030; J7050; Q9967

== ENCOUNTER 2025-01-18 07:46 | Observation (INO) | payer MEDICARE, MEDICAID ==
[2025-01-18] MEDS ORDERED: Sodium Chloride 0.9% 2.5 ML Syringe FLUSH PRN ×2 (08:35→14:19)
[2025-01-18] MEDS ORDERED: Sodium Chloride 0.9% 20 ML SDV IV PRN (08:35)
[2025-01-18] MEDS ORDERED: Sodium Chloride 0.9% 10 ML Syringe FLUSH PRN ×2 (08:35→14:19)
[2025-01-18 08:43] LABS: BASOPHILS ABSOLUTE AUTO 0.02 K/uL (0.00-0.20); BASOPHILS PERCENT AUTO 0.2 % (0.0-1.0); EOSINOPHILS ABSOLUTE AUTO 0.13 K/uL (0.00-0.45); EOSINOPHILS PERCENT AUTO 1.4 % (0.0-6.0); HEMOGLOBIN 11.1 g/dL (14.0-18.0); IMMATURE GRAN ABSOLUTE AUTO 0.02 K/uL (0.00-0.05); IMMATURE GRAN PERCENT AUTO 0.2 % (0.0-0.4); LYMPHOCYTES ABSOLUTE AUTO 1.04 K/uL (1.00-4.80); LYMPHOCYTES PERCENT AUTO 11.5 % (24.0-44.0); MEAN CORPUSCULAR HEMOGLOBIN 29.6 pg (28.0-32.0); MEAN CORPUSCULAR HGB CONC 32.6 g/dL (32.0-36.0); MEAN CORPUSCULAR VOLUME 90.7 fL (83.0-99.0); MONOCYTES ABSOLUTE AUTO 0.84 K/uL (0.00-0.80); MONOCYTES PERCENT AUTO 9.3 % (0.0-8.0); NEUTROPHILS ABSOLUTE AUTO 6.98 K/uL (1.80-7.70); NEUTROPHILS PERCENT AUTO 77.4 % (41.0-71.0); PLATELET COUNT,PLT 162 K/uL (150-400); RED BLOOD CELL COUNT 3.75 M/uL (4.52-5.90); WHITE BLOOD CELL COUNT,WBC 9.03 K/uL (3.9-11.3)
[2025-01-18 08:52] LABS: INR 1.34 (0.86-1.11)
[2025-01-18 09:01] LABS: A/G RATIO 0.8 (0.9-1.6); ALANINE AMINOTRANSFERASE,ALT 36 IU/L (14-63); ALBUMIN 3.4 g/dL (3.4-5.0); ALKALINE PHOSPHATASE 78 U/L (46-116); ASPARTATE AMNIOTRANSFERASE,AST 22 IU/L (15-37); BLOOD UREA NITROGEN,BUN 16 mg/dL (7.0-18.0); CALCIUM 9.2 mg/dL (8.5-10.1); CARBON DIOXIDE,CO2 33.1 mmol/L (21.0-32.0); CHLORIDE,CL 102 mmol/L (98-107); CREATININE 1.1 mg/dL (0.8-1.3); GLUCOSE RANDOM 101 mg/dL (74-106); MAGNESIUM 1.7 mg/dL (1.8-2.4); POTASSIUM,K 4.1 mmol/L (3.5-5.1); PRO B-TYPE NATRIUR PEPT,BNPPRO 1378 pg/mL (0-125); PROTEIN TOTAL,TP 7.5 g/dL (6.4-8.2); SODIUM,NA 138 mmol/L (136-148)
[2025-01-18 09:04] LABS: ESTIMATED GFR 76 mL/min (>60)
[2025-01-18] MEDS: Magnesium Sulfate 2 GM/50 mL 2 GM in Premix Bag 1 BAG IV ONE (09:55)
[2025-01-18] MEDS: Furosemide 40 MG/4 ML VIAL IVPUSH ONE ×2 (09:55→15:24)
[2025-01-18 10:25] LABS: APPEARANCE,URINE CLEAR; BILIRUBIN,URINE NEGATIVE (NEGATIVE); COLOR,URINE YELLOW; GLUCOSE,URINE NEGATIVE (NEGATIVE); KETONES,URINE NEGATIVE (NEGATIVE); LEUKOCYTE ESTERASE,URINE NEGATIVE (NEGATIVE); NITRITE,URINE NEGATIVE (NEGATIVE); OCCULT BLOOD,URINE NEGATIVE (NEGATIVE); PH,URINE 5.5 (5.0-8.0); PROTEIN,URINE NEGATIVE (NEGATIVE); UROBILINOGEN,URINE 0.2 EU/dL (<2.0)
[2025-01-18] MEDS ORDERED: Ondansetron 4 MG/2 ML SDV IVPUSH PRN (14:19)
[2025-01-18] MEDS ORDERED: Albuterol 0.083% 2.5 MG/3 ML Neb Soln NEB PRN (14:19)
[2025-01-18] MEDS ORDERED: Amoxicillin/Clavulanate K 875-125 MG Tab PO SCH (14:30)
[2025-01-18] MEDS: Rivaroxaban 10 MG Tab PO SCH (16:47)
[2025-01-18] MEDS: traZODone 50 MG Tab PO SCH (20:03)
[2025-01-18] MEDS: Doxycycline Monohydrate 100 MG Cap PO SCH (20:03)
[2025-01-18] MEDS: Gabapentin 300 MG Cap PO SCH (20:03)
[2025-01-18] MEDS: Amiodarone 200 MG Tab PO SCH (20:04)
[2025-01-18] MEDS: atorvaSTATin 40 MG Tab PO SCH (20:04)
[2025-01-18] MEDS: Famotidine 20 MG Tab PO SCH (20:04)
[2025-01-18] MEDS: risperiDONE 1 MG Tab PO SCH (20:04)
[2025-01-18] MEDS: Amoxicillin/Clavulanate K 875-125 MG Tab PO SCH (20:04)
[2025-01-18] MEDS: Formoterol/Mometasone 200-5 MCG 8.8 GM Inhaler INH SCH (20:05)
[2025-01-19 05:50] LABS: BASOPHILS ABSOLUTE AUTO 0.02 K/uL (0.00-0.20); BASOPHILS PERCENT AUTO 0.4 % (0.0-1.0); EOSINOPHILS ABSOLUTE AUTO 0.12 K/uL (0.00-0.45); EOSINOPHILS PERCENT AUTO 2.6 % (0.0-6.0); HEMATOCRIT 32.7 % (42.0-52.0); HEMOGLOBIN 10.4 g/dL (14.0-18.0); IMMATURE GRAN ABSOLUTE AUTO 0.01 K/uL (0.00-0.05); IMMATURE GRAN PERCENT AUTO 0.2 % (0.0-0.4); LYMPHOCYTES ABSOLUTE AUTO 0.96 K/uL (1.00-4.80); LYMPHOCYTES PERCENT AUTO 20.8 % (24.0-44.0); MEAN CORPUSCULAR HEMOGLOBIN 28.4 pg (28.0-32.0); MEAN CORPUSCULAR HGB CONC 31.8 g/dL (32.0-36.0); MEAN CORPUSCULAR VOLUME 89.3 fL (83.0-99.0); MEAN PLATELET VOLUME 9.4 fL (9.4-12.4); MONOCYTES ABSOLUTE AUTO 0.52 K/uL (0.00-0.80); MONOCYTES PERCENT AUTO 11.3 % (0.0-8.0); NEUTROPHILS ABSOLUTE AUTO 2.99 K/uL (1.80-7.70); NEUTROPHILS PERCENT AUTO 64.7 % (41.0-71.0); PLATELET COUNT,PLT 162 K/uL (150-400); RED BLOOD CELL COUNT 3.66 M/uL (4.52-5.90); WHITE BLOOD CELL COUNT,WBC 4.62 K/uL (3.9-11.3)
[2025-01-19 06:14] LABS: CALCIUM 8.9 mg/dL (8.5-10.1); CARBON DIOXIDE,CO2 34.6 mmol/L (21.0-32.0); CREATININE 1.1 mg/dL (0.8-1.3); EST CRCL DRUG DOSING (CG) 69.63 mL/min; MAGNESIUM 1.9 mg/dL (1.8-2.4); POTASSIUM,K 3.4 mmol/L (3.5-5.1)
[2025-01-19] MEDS: Furosemide 40 MG/4 ML VIAL IVPUSH ONE (08:13)
[2025-01-19] MEDS: Potassium Chloride 10 MEQ Tab.ER PO ONE (08:17)
[2025-01-19] MEDS: Ferrous Sulfate 325 MG Tab PO SCH (08:18)
[2025-01-19] MEDS: Sertraline 100 MG Tab PO SCH (08:18)
[2025-01-19] MEDS: Losartan 50 MG Tab PO SCH (08:19)
[2025-01-19] MEDS: Allopurinol 100 MG Tab PO SCH (08:19)
[2025-01-19] MEDS: Metoprolol Succinate 25 MG Tab.ER PO SCH (08:25)
[2025-01-19] MEDS: Gabapentin 300 MG Cap PO SCH (13:38)
[2025-01-19] MEDS: Furosemide 20 MG Tab PO SCH (16:40)
[2025-01-19] MEDS: Acetaminophen 325 MG Tab PO PRN (21:46)
[2025-01-19] MEDS ORDERED: Benzonatate 100 MG Cap PO PRN (23:02)
[2025-01-20 05:42] LABS: BASOPHILS ABSOLUTE AUTO 0.01 K/uL (0.00-0.20); BASOPHILS PERCENT AUTO 0.2 % (0.0-1.0); EOSINOPHILS ABSOLUTE AUTO 0.14 K/uL (0.00-0.45); EOSINOPHILS PERCENT AUTO 3.1 % (0.0-6.0); HEMATOCRIT 32.5 % (42.0-52.0); HEMOGLOBIN 10.2 g/dL (14.0-18.0); IMMATURE GRAN ABSOLUTE AUTO 0.01 K/uL (0.00-0.05); IMMATURE GRAN PERCENT AUTO 0.2 % (0.0-0.4); LYMPHOCYTES ABSOLUTE AUTO 1.18 K/uL (1.00-4.80); LYMPHOCYTES PERCENT AUTO 26.5 % (24.0-44.0); MEAN CORPUSCULAR HEMOGLOBIN 28.5 pg (28.0-32.0); MEAN CORPUSCULAR HGB CONC 31.4 g/dL (32.0-36.0); MEAN CORPUSCULAR VOLUME 90.8 fL (83.0-99.0); MEAN PLATELET VOLUME 10.2 fL (9.4-12.4); MONOCYTES ABSOLUTE AUTO 0.52 K/uL (0.00-0.80); MONOCYTES PERCENT AUTO 11.7 % (0.0-8.0); NEUTROPHILS PERCENT AUTO 58.3 % (41.0-71.0); PLATELET COUNT,PLT 175 K/uL (150-400); RED BLOOD CELL COUNT 3.58 M/uL (4.52-5.90); WHITE BLOOD CELL COUNT,WBC 4.46 K/uL (3.9-11.3)
[2025-01-20 06:01] LABS: CALCIUM 8.9 mg/dL (8.5-10.1); CARBON DIOXIDE,CO2 31.6 mmol/L (21.0-32.0); CREATININE 1.2 mg/dL (0.8-1.3); EST CRCL DRUG DOSING (CG) 63.83 mL/min; MAGNESIUM 1.8 mg/dL (1.8-2.4); POTASSIUM,K 3.8 mmol/L (3.5-5.1)
[2025-01-20] MEDS: Furosemide 40 MG Tab PO SCH (08:59)
== END 2025-01-21 11:28 ==
LOC: MW.ED 07:46 → MW.MS 12:51
PROVIDERS: ADMIT Family Medicine; ATTEND Family Medicine
DX: J96.01 Acute respiratory failure with hypoxia (principal); I11.0 Hypertensive heart disease with heart failure; I50.33 Acute on chronic diastolic (congestive) heart failure; E11.9 Type 2 diabetes mellitus without complications; I48.20 Chronic atrial fibrillation, unspecified; E83.42 Hypomagnesemia; F60.9 Personality disorder, unspecified; E66.01 Morbid (severe) obesity due to excess calories; Z79.01 Long term (current) use of anticoagulants; Z79.84 Long term (current) use of oral hypoglycemic drugs; Z79.899 Other long term (current) drug therapy; Z91.041 Radiographic dye allergy status; Z91.013 Allergy to seafood; Z88.2 Allergy status to sulfonamides; Z91.030 Bee allergy status
CPT/HCPCS: 36415; 71045; 80048; 80053; 81003; 82947; 83735; 83880; 84484; 85025; 85610; 85730; 93970; 96365; 96375; 96376; 99285; A9270; G0378; J1938; J3475; 93010; 99222; 99232; 99238

== ENCOUNTER 2025-02-07 17:30 | Emergency (ER) | payer MEDICARE, MEDICAID ==
[2025-02-07] MEDS: Aspirin 81 MG Tab.Chew PO ONE (18:20)
[2025-02-07 18:33] LABS: BASOPHILS ABSOLUTE AUTO 0.03 K/uL (0.00-0.20); BASOPHILS PERCENT AUTO 0.4 % (0.0-1.0); EOSINOPHILS ABSOLUTE AUTO 0.17 K/uL (0.00-0.45); EOSINOPHILS PERCENT AUTO 2.4 % (0.0-6.0); HEMATOCRIT 37.5 % (42.0-52.0); HEMOGLOBIN 12.2 g/dL (14.0-18.0); IMMATURE GRAN ABSOLUTE AUTO 0.01 K/uL (0.00-0.05); IMMATURE GRAN PERCENT AUTO 0.1 % (0.0-0.4); LYMPHOCYTES PERCENT AUTO 21.2 % (24.0-44.0); MEAN CORPUSCULAR HEMOGLOBIN 28.8 pg (28.0-32.0); MEAN CORPUSCULAR HGB CONC 32.5 g/dL (32.0-36.0); MEAN CORPUSCULAR VOLUME 88.4 fL (83.0-99.0); MEAN PLATELET VOLUME 10.4 fL (9.4-12.4); MONOCYTES PERCENT AUTO 9.9 % (0.0-8.0); NEUTROPHILS ABSOLUTE AUTO 4.65 K/uL (1.80-7.70); PLATELET COUNT,PLT 170 K/uL (150-400); RED BLOOD CELL COUNT 4.24 M/uL (4.52-5.90); WHITE BLOOD CELL COUNT,WBC 7.06 K/uL (3.9-11.3)
[2025-02-07 18:53] LABS: INR 1.4 (0.86-1.11); PTT,PARTIAL THROMBOPLSTIN TIME 33.6 SEC (23.9-30.7)
[2025-02-07 19:00] LABS: MAGNESIUM 1.7 mg/dL (1.8-2.4)
[2025-02-07 21:05] LABS: A/G RATIO 1.2 (0.9-1.6); ALBUMIN 3.9 g/dL (3.4-5.0); BILIRUBIN TOTAL 0.5 mg/dL (0.2-1.0); CALCIUM 8.8 mg/dL (8.5-10.1); CARBON DIOXIDE,CO2 28.4 mmol/L (21.0-32.0); CREATININE 2.2 mg/dL (0.8-1.3); EST CRCL DRUG DOSING (CG) 30.28 mL/min; POTASSIUM,K 3.8 mmol/L (3.5-5.1); PROTEIN TOTAL,TP 7.1 g/dL (6.4-8.2)
== END 2025-02-07 22:45 | disposition home or self-care (01) ==
LOC: MW.ED 17:30
DX: R42 Dizziness and giddiness (principal); E86.0 Dehydration; I48.91 Unspecified atrial fibrillation; I10 Essential (primary) hypertension; J45.909 Unspecified asthma, uncomplicated; E11.9 Type 2 diabetes mellitus without complications; Z90.49 Acquired absence of other specified parts of digestive tract; Z88.2 Allergy status to sulfonamides; Z91.030 Bee allergy status; Z91.041 Radiographic dye allergy status; Z91.013 Allergy to seafood; Z79.01 Long term (current) use of anticoagulants; Z79.84 Long term (current) use of oral hypoglycemic drugs; Z79.899 Other long term (current) drug therapy
CPT/HCPCS: 36415; 71045; 80053; 83690; 83735; 83880; 84484; 85025; 85610; 85730; 93005; 99285; A9270; 93010; 99283

== ENCOUNTER 2025-07-15 17:18 | Emergency (ER) | payer MEDICARE, MEDICAID ==
[2025-07-15] MEDS ORDERED: Sodium Chloride 0.9% 10 ML Syringe FLUSH PRN (17:49)
[2025-07-15] MEDS ORDERED: Sodium Chloride 0.9% 2.5 ML Syringe FLUSH PRN (17:49)
[2025-07-15] MEDS: diphenhydrAMINE 50 MG/ML SDV IVPUSH ONE (18:09)
[2025-07-15] MEDS: methylPREDNISolone Sodium Succinate 125 MG/2 ML SDV IVPUSH ONE (18:10)
[2025-07-15 18:31] LABS: BASOPHILS ABSOLUTE AUTO 0.02 K/uL (0.00-0.20); BASOPHILS PERCENT AUTO 0.4 % (0.0-1.0); EOSINOPHILS ABSOLUTE AUTO 0.04 K/uL (0.00-0.45); EOSINOPHILS PERCENT AUTO 0.7 % (0.0-6.0); IMMATURE GRAN ABSOLUTE AUTO 0.01 K/uL (0.00-0.05); IMMATURE GRAN PERCENT AUTO 0.2 % (0.0-0.4); LYMPHOCYTES ABSOLUTE AUTO 2.19 K/uL (1.00-4.80); LYMPHOCYTES PERCENT AUTO 39.9 % (24.0-44.0); MEAN PLATELET VOLUME 10.7 fL (9.4-12.4); MONOCYTES ABSOLUTE AUTO 0.57 K/uL (0.00-0.80); MONOCYTES PERCENT AUTO 10.4 % (0.0-8.0); NEUTROPHILS ABSOLUTE AUTO 2.66 K/uL (1.80-7.70); NEUTROPHILS PERCENT AUTO 48.4 % (41.0-71.0); NRBC ABSOLUTE 0.00 K/uL (0.00-0.02); NRBC PERCENT 0.0 /100WBC (0.0-0.2); PLATELET COUNT,PLT 152 K/uL (150-400); RED BLOOD CELL COUNT 4.07 M/uL (4.52-5.90); WHITE BLOOD CELL COUNT,WBC 5.49 K/uL (3.9-11.3)
[2025-07-15 18:39] LABS: INR 1.35 (0.86-1.11); PTT,PARTIAL THROMBOPLSTIN TIME 33.7 SEC (23.9-30.7)
[2025-07-15 18:45] LABS: A/G RATIO 0.9 (0.9-1.6); ALANINE AMINOTRANSFERASE,ALT 29 IU/L (14-63); ASPARTATE AMNIOTRANSFERASE,AST 27 IU/L (15-37); BILIRUBIN TOTAL 0.5 mg/dL (0.2-1.0); BLOOD UREA NITROGEN,BUN 19 mg/dL (7.0-18.0); CARBON DIOXIDE,CO2 31.9 mmol/L (21.0-32.0); CHLORIDE,CL 102 mmol/L (98-107); CREATINE KINASE,CK 87 U/L (26-308); CREATININE 1.3 mg/dL (0.8-1.3); GLUCOSE RANDOM 110 mg/dL (74-106); POTASSIUM,K 3.7 mmol/L (3.5-5.1); PROTEIN TOTAL,TP 6.9 g/dL (6.4-8.2); SODIUM,NA 139 mmol/L (136-148)
[2025-07-15 18:59] LABS: ESTIMATED GFR 62 mL/min (>60)
[2025-07-15] MEDS: Iopamidol 755 MG/ML 500 ML Multipack Bottle IVPUSH STA (19:35)
[2025-07-15] MEDS: Ondansetron 4 MG/2 ML SDV IVPUSH ONE (20:54)
== END 2025-07-15 23:15 | disposition critical access hospital (66) ==
LOC: MW.ED 17:18
DX: S80.02XA Contusion of left knee, initial encounter (principal); S80.01XA Contusion of right knee, initial encounter; S29.9XXA Unspecified injury of thorax, initial encounter; R55 Syncope and collapse; I10 Essential (primary) hypertension; I48.91 Unspecified atrial fibrillation; E11.9 Type 2 diabetes mellitus without complications; Z91.041 Radiographic dye allergy status; Z88.2 Allergy status to sulfonamides; Z91.030 Bee allergy status; Z91.013 Allergy to seafood; Z88.8 Allergy status to other drugs, medicaments and biological substances; Z79.84 Long term (current) use of oral hypoglycemic drugs; Z79.899 Other long term (current) drug therapy; Z79.85 Long-term (current) use of injectable non-insulin antidiabetic drugs; X58.XXXA Exposure to other specified factors, initial encounter; Y93.89 Activity, other specified
CPT/HCPCS: 36415; 70450; 70486; 71275; 72125; 73562; 74177; 80053; 82550; 83735; 84484; 85025; 85610; 85730; 93005; 96374; 96375; 99285; J1200; J2270; J2405; Q9967; J2919